=== PATIENT | female | born 1965 | race Caucasian/White ===

== ENCOUNTER → 2016-09-13 | Outpatient (CLI) | payer MEDICARE, BC ==
--- NOTE | 2016-09-15 08:32 | MM ---
Reason for exam: screening (asymptomatic). Last mammogram was performed 1 year and 2 months ago. History: Patient is postmenopausal and has history of other cancer at age 48. Excisional biopsy of the right breast, February 12, 2007. Benign excisional biopsy of the right breast, August 24, 1999. Physical Findings: A clinical breast exam by your physician is recommended on an annual basis and results should be correlated with mammographic findings. MG 3D Screening Mammo W/Cad Bilateral CC and MLO view(s) were taken. Prior study comparison: July 21, 2015, bilateral MG 3d screening mammo w/cad. April 23, 2014, bilateral MG screening mammo w CAD. January 30, 2012, bilateral digital screening mammo w/CAD. There are scattered fibroglandular densities. No significant changes when compared with prior studies. ASSESSMENT: Negative, BI-RAD 1 RECOMMENDATION: Routine screening mammogram of both breasts in 1 year.
== END | disposition home or self-care (01) ==
LOC: RADMAMWWP 14:51
PROVIDERS: ATTEND Obstetrics & Gynecology
DX: Z12.31 Encounter for screening mammogram for malignant neoplasm of breast (principal)
CPT/HCPCS: 77063; G0202

== ENCOUNTER → 2016-12-28 | Outpatient (CLI) | payer MEDICARE, BC ==
--- NOTE | 2016-12-28 16:48 | CT ---
EXAMINATION TYPE: CT ChestAbdPelvis w con DATE OF EXAM: 12/28/2016 4:00 PM COMPARISON: Prior CT abdomen pelvis 13 Jan 2016, CT abdomen pelvis 08 Jan 2015 HISTORY: Pt states of follow up for GI stromal tumor CT DLP: 3802.1 mGycm Automated exposure control for dose reduction was used. CONTRAST: CT scan of the chest, abdomen and pelvis is performed with Oral Contrast and with IV Contrast, patien t injected with 80 mL of Visipaque 320. FINDINGS: LUNGS: Dependent atelectatic changes are suspected on the right. There are probable areas of scarring with linear bands of increased attenuation bilaterally. The heart is enlarged. MEDIASTINUM: There are no greater than 1 cm hilar or mediastinal lymph nodes. No pericardial effusi on is seen. AORTA: No significant abnormality is seen. OTHER: No additional significant abnormality is seen. LIVER/GB: Liver shows a stable appearance, gallbladder is contracted. Difficult to exclude some small stones within the gallbladder. PANCREAS: Immediately inferior to the pancreas there is a soft tissue mass measuring approximately 6. 1 x 6 x 4.2 cm which is increased in size as compared to previous exams. Pancreas is stable. SPLEEN: Enlarged at 14.7 cm ADRENALS: No significant abnormality is seen. KIDNEYS: Small cortical cysts show a similar appearance REPRODUCTIVE ORGANS: No gross abnormality seen. BOWEL: Diverticular changes associated with the colon. FREE AIR: No Free Air visible. ASCITES: None seen. RETROPERITONEAL ADENOPATHY: No retroperitoneal adenopathy is seen. LYMPH NODES: No greater than 1 cm abdominal or pelvic lymph nodes are appreciated. URINARY BLADDER: No significant abnormality is seen. PELVIC ADENOPATHY: None visualized. OSSEOUS STRUCTURES: No significant abnormality is seen. IMPRESSION: Interval growth in patient's soft tissue mass compared to previous examinations.
== END | disposition home or self-care (01) ==
LOC: RADPROMAIN 14:25
PROVIDERS: ATTEND Internal Medicine Hematology & Oncology
DX: C49.A0 Gastrointestinal stromal tumor, unspecified site (principal); K86.89 Other specified diseases of pancreas; Z88.1 Allergy status to other antibiotic agents
CPT/HCPCS: 82565; 84520; 71260; 74177; Q9967

== ENCOUNTER → 2017-05-04 | Outpatient (CLI) | payer MEDICARE, BC | END | disposition home or self-care (01) | LOC: RADPROMAIN 10:21 | PROVIDERS: ATTEND Internal Medicine Hematology & Oncology | DX: C49.A0 Gastrointestinal stromal tumor, unspecified site (principal) | CPT/HCPCS: 82565; 84520; J1642 ==

== ENCOUNTER → 2017-05-16 | Outpatient (CLI) | payer MEDICARE, BC ==
--- NOTE | 2017-05-16 12:45 | CT ---
EXAMINATION TYPE: CT abdomen pelvis w con DATE OF EXAM: 05/16/2017 COMPARISON: December 28, 2016 HISTORY: Gastrointestinal Stromal Tumor CT DLP: 3506.3 mGycm CONTRAST: CT scan of the abdomen and pelvis is performed with Oral Contrast and with IV Contrast, patient injec fr[place] with 80 mL of Visipaque 320. FINDINGS: LUNG BASES-: No visible nodule. No infiltrate. LIVER/GB: There is evidence of cholelithiasis. No space occupying hepatic lesion. Biliary tree is of normal caliber. PANCREAS: No inflammation. No distinct mass. SPLEEN: No splenic enlargement. No lesion seen. ADRENALS: No nodule. No thickening. KIDNEYS/BLADDER: No hydronephrosis. No nephrolithiasis. No disctinct renal mass. Urinary bladder g rossly unremarkable. BOWEL: Soft tissue mass is again noted within the small bowel mesentery which currently measures 5.5 x 4.7 x 5.6 cm versus 5.7 x 5.6 x 5.0 cm previously. Overall no significant change is appreciated. Ad jacent to this dominant soft tissue mass just inferior to the pancreatic head and uncinate process is an additional mass measuring 3.1 x 3.0 cm versus 1.9 x 1.6 cm previously. Normal appendix. Normal b owel caliber. No inflammation. Sigmoid diverticulosis without diverticulitis. GENITAL ORGANS: No gross abnormality. LYMPH NODES: No greater than 1cm abdominal or pelvic lymph nodes are appreciated. AORTA: No significant abnormality. OSSEOUS STRUCTURES: No significant abnormality is seen. OTHER: No significant additional abnormality is seen. IMPRESSION: 1. Dominant mass within the small bowel mesentery is essentially unchanged in size however an adjacen t soft tissue mass demonstrates interval increase in size. 2. Cholelithiasis.
== END | disposition home or self-care (01) ==
LOC: RADPROMAIN 10:15
PROVIDERS: ATTEND Internal Medicine Hematology & Oncology
DX: C49.A0 Gastrointestinal stromal tumor, unspecified site (principal); K80.20 Calculus of gallbladder without cholecystitis without obstruction
CPT/HCPCS: 82565; 84520; 74177; Q9967; J1642

== ENCOUNTER → 2017-07-25 | Outpatient (CLI) | payer MEDICARE, BC ==
--- NOTE | 2017-07-25 14:00 | CONS ---
CONSULTATION DATE OF SERVICE: 07/25/2017 52-year-old lady has been with the sleep center for possible obstructive sleep apnea- hypopnea syndrome. HISTORY OF PRESENT ILLNESS SLEEP WAKE EVALUATION: SLEEP SCHEDULE: The patient usual sleep schedule in the range from 1:00 a.m. until 7:30 a.m. FALLING ASLEEP: Sometimes has problem with falling asleep. She has TV set in bedroom. DURING SLEEP: She prefers to sleep on the side position during the night. She wakes up from sleep up to 3 times with dry mouth, heartburn, snoring. DURING THE DAY/SLEEP WAKE EVALUATION: In the morning she wakes up tired, episodes of depression and anxiety. Bogard Sleepiness Scale is 7. PAST MEDICAL HISTORY: Past medical history positive for gastrointestinal stomal tumor diagnosed in 2012, on treatment with chemotherapy, anxiety, depression, headaches, multiple episodes of sinusitis, ear infection, back problems, liver abscess. PAST SURGICAL HISTORY: Several C-sections, left eye cataract surgery, several sinus surgeries, two lumpectomies from right breast, benign, port placement on the right side of the chest. MEDICATIONS: Gleevec, Pepcid, Xanax, Lomotil, Xyzal, Zofran, Lexapro, Ultram, Lasix, Aleve. Nasal Carlton, Ceftin. SOCIAL HISTORY: Negative for smoking. Alcohol consumption very rarely. REVIEW OF SYSTEMS: Awakenings from sleep, sometimes tiredness during the day. FAMILY HISTORY: Hypertension, heart problems, sinus problems with nasal polyps, acid reflux, hypertension, diabetes, heart problems. PHYSICAL EXAM: lady without distress BP 127/68, HR 90, RR 16, height 5 feet 2 inches, weight 317.8, BMI 57.9. Neck 15 and one third in circumference. Temp 98.1. Oxygen saturation room air 97%. Oropharynx low position of soft palate. Slight restriction of nasal breathing. Systolic murmur on aorta and pulmonary artery. Abdomen is obese. Palpable port on the right side of the chest. Neck Supple, no JVD. Thyroid is not palpable. LUNGS Clear to percussion and to auscultation. Good air exchange. No wheezing or rhonchi. HEART S1, S2 regular. No murmurs, gallops, or rubs. ABDOMEN: Obese. Soft and nontender. Bowel sounds are present. No organomegaly appreciated. EXTREMITIES No clubbing or cyanosis. GASTROENTEROLOGY NURSE Awake, alert, and oriented X3. Cranial nerves 2 to 7 intact. There is no fasciculation or atrophy. noted. No focal deficits observed. IMPRESSION: 1. Snoring, multiple awakenings from sleep, low position of soft palate, obesity, obstructive sleep apnea-hypopnea syndrome. 2. Obesity BMI 57.9. 3. Anxiety. 4. Depression. 5. 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 6. Status post C5 dislocation. 7. Headaches. 8. History of multiple sinusitis. 9. Status post 4 sinus surgeries. 10.Status post 2 lumpectomy from right breast benign. 11.Status post port insertion to the right side of the chest. 12.History of ear infection. 13.Status post left eye cataract surgery. 14.History of liver abscess. 15. PLAN: 1. Polysomnography for evaluation of patient's breathing during sleep. 2. CPAP/BiPAP titration if sleep study confirms obstructive sleep apnea-hypopnea syndrome. 3. Preferable position during sleep on the side. 4. No driving if patient feels any sleepiness. Patient is aware of civil and criminal liability for unsafe driving. 5. I will see patient for follow up visit to explain results of testing and following plan. Thank you very much for this patient for consultation. Sincerely. Ambrocio Bruno MD, PhD, FAASM Diplomat of [place] [employer] [place] [employer] [facility] MMODL / JONELN: [id number] /
== END | disposition home or self-care (01) ==
LOC: SLEEP 11:51
PROVIDERS: ATTEND Internal Medicine
DX: G47.33 Obstructive sleep apnea (adult) (pediatric) (principal); C49.A0 Gastrointestinal stromal tumor, unspecified site; E66.9 Obesity, unspecified; F41.9 Anxiety disorder, unspecified; F32.9 Major depressive disorder, single episode, unspecified; R51 Headache; Z68.43 Body mass index [BMI] 50.0-59.9, adult; Z98.890 Other specified postprocedural states
CPT/HCPCS: 99211

== ENCOUNTER → 2017-09-21 | Outpatient (CLI) | payer MEDICARE, BC ==
--- NOTE | 2017-09-21 12:25 | XR ---
EXAMINATION TYPE: XR abdomen 2V DATE OF EXAM: 09/21/2017 CLINICAL HISTORY: History of partial small bowel resection 2 weeks ago for GIST with persistent pain nausea and vomiting. TECHNIQUE: Supine and upright views of the abdomen are obtained. COMPARISON: CT abdomen and pelvis May 16, 2017. FINDINGS: Exam suboptimal secondary to patient's large body habitus. New sutures left midabdomen are seen. There is some paucity of bowel gas. Visualized gas is noted in nondistended small and large bow el loops throughout the periphery of the abdomen and pelvis. Gas is seen in nondistended rectum. Ther e is air-fluid level seen in stomach. Lung bases are clear. Osseous structures are intact. IMPRESSION: Overall nonspecific but favor nonobstructive bowel gas pattern.
== END | disposition home or self-care (01) ==
LOC: RADXRMAIN 11:30
PROVIDERS: ATTEND Internal Medicine Hematology & Oncology
DX: I81 Portal vein thrombosis (principal); I10 Essential (primary) hypertension; D48.1 Neoplasm of uncertain behavior of connective and other soft tissue; I49.5 Sick sinus syndrome
CPT/HCPCS: 74019

== ENCOUNTER → 2017-12-04 | Outpatient (CLI) | payer MEDICARE, BC ==
[2017-12-04 10:49] LABS: Appearance,Urine Clear (Clear); Bacteria,Urine Rare /hpf; Bilirubin,Urine Negative (Negative); Blood,Urine Negative (Negative); Color,Urine Yellow; Glucose,Urine (UA) Negative (Negative); Hyaline Casts,Urine 1 /lpf (0-2); Ketones,Urine Negative (Negative); Leukocyte Esterase,Urine Small (Negative); Mucus,Urine Occasional /hpf; Nitrite,Urine Negative (Negative); PH, Urine 5.5 (5.0-8.0); Protein,Urine Trace (Negative); RBC,Urine 1 /hpf (0-5); Specific Gravity,Urine 1.013 (1.001-1.035); Squamous Epithelial Cell,Urine 2 /hpf (0-4); Urobilinogen,Urine <2.0 mg/dL (<2.0); WBC,Urine 3 /hpf (0-5)
--- NOTE | 2017-12-04 11:06 | XR ---
EXAMINATION TYPE: XR lumbosacral spine min 4V DATE OF EXAM: 12/04/2017 COMPARISON: NONE HISTORY: 52-year-old female low back pain TECHNIQUE: 5 views FINDINGS: Some rightward truncal shift could be positional or secondary to muscle spasm. There are 5 Lumbar typ e vertebral bodies. No pars interarticularis defect. Facet arthropathy lower lumbar spine. Very mild endplate spondylosis throughout. Somewhat short appearance to the pedicles in the mid to lower lumbar spine. Vertebral body heights are maintained. IMPRESSION: 1. Somewhat short appearance to the pedicles in the lower lumbar spine could reflect underlying conge nital spinal canal stenosis. 2. Mild facet arthropathy mid to lower lumbar spine. Very mild scattered endplate spondylosis through out. 3. No vertebral compression collapse or malalignment.
== END | disposition home or self-care (01) ==
LOC: LABWHC1 10:15
PROVIDERS: ATTEND Internal Medicine
DX: M46.96 Unspecified inflammatory spondylopathy, lumbar region (principal); N39.0 Urinary tract infection, site not specified
CPT/HCPCS: 72110; 81001; 87086

== ENCOUNTER → 2017-12-07 | Outpatient (CLI) | payer MEDICARE, BC ==
--- NOTE | 2017-12-10 12:09 | MM ---
Reason for exam: screening (asymptomatic). Last mammogram was performed 1 year and 3 months ago. History: Patient is postmenopausal and has history of other cancer at age 48. Excisional biopsy of the right breast, February 12, 2007. Benign excisional biopsy of the right breast, August 24, 1999. Physical Findings: A clinical breast exam by your physician is recommended on an annual basis and results should be correlated with mammographic findings. MG 3D Screening Mammo W/Cad Bilateral CC and MLO view(s) were taken. Prior study comparison: September 13, 2016, bilateral MG 3d screening mammo w/cad. July 21, 2015, bilateral MG 3d screening mammo w/cad. There are scattered fibroglandular densities. There is no discrete abnormality. ASSESSMENT: Negative, BI-RAD 1 RECOMMENDATION: Routine screening mammogram of both breasts in 1 year.
== END | disposition home or self-care (01) ==
LOC: RADMAMWWP 09:21
PROVIDERS: ATTEND Internal Medicine
DX: Z12.31 Encounter for screening mammogram for malignant neoplasm of breast (principal)
CPT/HCPCS: 77063; 77067

== ENCOUNTER → 2018-02-04 | Outpatient (CLI) | payer MEDICARE, BC ==
--- NOTE | 2018-02-04 13:20 | CT ---
EXAMINATION TYPE: CT ChestAbdPelvis w con DATE OF EXAM: 02/04/2018 COMPARISON: Prior CT abdomen and pelvis May 16, 2017 and older studies HISTORY: Patient has no complaints at time of study. Follow up study for gastrointestinal stromal tu mor that was removed during bowel resection [address] DLP: 1909 mGycm. Automated Exposure Control for Dose Reduction was Utilized. CONTRAST: CT scan of the thorax, abdomen and pelvis is performed with IV Contrast, patient injected with 100 mL of Isovue 300. FINDINGS: LUNGS: Low lung volumes with elevated right hemidiaphragm is redemonstrated. There is some right grea ter than left bibasilar linear scarring and/or atelectasis. No new suspicious nodule or mass is prese nt. No pleural effusion or pneumothorax is seen bilaterally. MEDIASTINUM: There are no greater than 1 cm hilar or mediastinal lymph nodes. No pericardial effusi on is seen. Cardiomegaly is redemonstrated. OTHER: There is stable right internal jugular Mediport catheter. LIVER/GB: Dependent density in gallbladder could reflect small stones. PANCREAS: No significant abnormality is seen. SPLEEN: No significant abnormality is seen. ADRENALS: No significant abnormality is seen. KIDNEYS: No significant abnormality is seen. BOWEL: No suspicious small or large bowel dilatation. Surgical sutures throughout the mesentery are now identified. There may be new side to side anastomos is of small bowel loop coronal image 56. There is persistent mild fat stranding with some subcentimet er nodularity. Large heterogeneous left sided mesenteric mass or lymph node on most recent CT is not clearly seen on current study. Mass just inferior to pancreatic head on prior study is less well-seen on current study. Some diverticula in the left and sigmoid colon are present. GENITAL ORGANS: No gross abnormality seen. LYMPH NODES: No greater than 1cm abdominal or pelvic lymph nodes are appreciated. OSSEOUS STRUCTURES: No significant abnormality is seen. OTHER: Anterior vertical scarring is redemonstrated. IMPRESSION: Interval surgery with resection of large central abdominal mesenteric masses. Some persi stent mild fat stranding and subcentimeter mesenteric nodularity is seen, nonspecific and can be foll owed. No new masses or adenopathy is otherwise evident.
== END ==
LOC: RADPROMAIN 10:11
PROVIDERS: ATTEND Internal Medicine Hematology & Oncology
DX: Z03.89 Encounter for observation for other suspected diseases and conditions ruled out (principal); D48.1 Neoplasm of uncertain behavior of connective and other soft tissue
CPT/HCPCS: 82565; 84520; 71260; 74177; J1642; Q9967

== ENCOUNTER → 2018-03-11 | Outpatient (CLI) | payer MEDICARE, BC ==
--- NOTE | 2018-03-11 09:01 | CT ---
EXAMINATION TYPE: CT sinus wo con DATE OF EXAM: 03/11/2018 COMPARISON: 12/20/2010 HISTORY: Chronic sinus issues CT DLP: 577.3 mGycm. Automated Exposure Control for Dose Reduction was Utilized. TECHNIQUE: CT scan of the sinuses is performed without contrast, axial images are obtained, coronal r eformatted images are also reviewed. FINDINGS: There are surgical postsurgical changes of the ostiomeatal complexes/maxillary sinuses. The re is persistent mild near circumferential mucosal thickening of the left maxillary sinus and moderat e mucosal thickening of the ethmoid sinuses. The frontal sinuses and sphenoid sinuses are well aerate d. The visualized portions of the mastoid air cells are also well aerated. Middle ear cavities and ex ternal auditory canals appear patent. The nasal septum remains midline. The maxillary spine and nasal bone are intact. The globes and extraocular muscles are symmetric. There is atrophy or surgical jeromy júnior of the left lens. There is narrowing without occlusion of the bilateral ostiomeatal complexes from mucosal thickening. There is elongation of the right middle nasal turbinate, normal variant. No significant mucosal hyper trophy is seen around the nasal turbinates. Frontal recesses are patent. No Jose M cells or azeb bu llosa. IMPRESSION: 1. Narrowing without occlusion of the bilateral ostiomeatal complexes secondary to mucosal thickening . No Jose M cells or azeb bullosa. Mild circumferential left maxillary mucosal thickening and moder ate ethmoid mucosal thickening is present. 2. No nasal septal deviation. Osseous structures are intact.
== END | disposition home or self-care (01) ==
LOC: RADCTMAIN 08:29
PROVIDERS: ATTEND Otolaryngology
DX: J32.0 Chronic maxillary sinusitis (principal); J32.2 Chronic ethmoidal sinusitis
CPT/HCPCS: 70486

== ENCOUNTER 2018-12-07 18:59 | Emergency (ER) | payer MEDICARE, BC ==
[2018-12-07 19:10] VITALS: TEMP 98.2
[2018-12-07] MEDS ORDERED: SODIUM CHLORIDE 0.9% 1,000 ML IV STA (19:13)
[2018-12-07] MEDS ORDERED: ONDANSETRON 4 MG/2 ML VIAL IVP STA (19:13)
[2018-12-07] MEDS ORDERED: MORPHINE SULFATE 4 MG/ML SYRINGE IV STA (19:13)
--- NOTE | 2018-12-07 19:14 | ED ---
Abdominal Pain HPI - General Chief Complaint: Abdominal Pain Stated Complaint: gallstones Time Seen by Provider: 12/07/18 19:13 Source: patient Mode of arrival: ambulatory Limitations: no limitations - History of Present Illness Initial Comments: Zulema is a morbidly obese 53-year-old female with past medical history of gastrointestinal cancer status post resection with development of liver abscess and portal vein thrombosis which was treated with long-term IV antibiotics. Patient has a known history of gallstones. She presents to the emergency depa rtment this evening for evaluation of right upper quadrant abdominal pain, nausea, vomiting and diarrhea. Patient reports that this morning she had T and a protein bar for breakfast she subsequently developed abdominal pain nausea and vomiting. Patient reports that she's had multiple episodes of nonbloody nonbilious emesis this afternoon the pain has persisted despite having nothing to eat or drink. Patient reports she's becoming lightheaded and beginning to have concerns that she may be dehydrated so she came to the ER for further evaluation. - Related Data Allergies Allergy/AdvReac Type Severity Reaction Status Date / Time ampicillin Allergy Unknown Verified 12/07/18 19:10 cephalexin monohydrate Allergy Unknown Verified 12/07/18 19:10 [From Keflex] egg Allergy Nausea & Verified 12/07/18 19:10 Vomiting erythromycin base Allergy Unknown Verified 12/07/18 19:10 [Erythromycin Base] Penicillins Allergy Unknown Verified 12/07/18 19:10 tetracycline [Tetracycline] Allergy Unknown Verified 12/07/18 19:10 Review of Systems ROS Statement: Those systems with pertinent positive or pertinent negative responses have been documented in the HPI. ROS Other: All systems not noted in ROS Statement are negative. 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 History of Any Multi-Drug Resistant Organisms: None Reported Additional Past Surgical History / Comment(s): bowel resection, csection, sinus surgery, cataract surgery, d&C, breast biopsy, port placement Past Psychological History: Anxiety, Depression Smoking Status: Never smoker Past Alcohol Use History: None Reported Past Drug Use History: None Reported General Exam - General Exam Comments Initial Comments: Physical Exam GENERAL: Patient is well-developed and well-nourished. Patient is nontoxic and well-hydrated and is in no distress. HENT: Normocephalic, Atraumatic. EYES: PERRL, EOMI PULMONARY: Unlabored respirations. CARDIOVASCULAR: There is a regular rate and rhythm without any murmurs gallops or rubs. ABDOMEN: Soft and nontender with normal bowel sounds. Well healed midline surgical incision SKIN: Skin is clear with no lesions or rashes and otherwise unremarkable. : Deferred NEUROLOGIC: Patient is alert and oriented x3. Moving all extremities spontaneously MUSCULOSKELETAL: Normal extremities with adequate strength and full range of motion. No lower extremity swelling or edema. No calf tenderness. PSYCHIATRIC: Normal psychiatric evaluation. Limitations: no limitations Course Vital Signs 12/07/18 12/07/18 12/07/18 19:04 20:23 21:07 Temperature 98.2 F Pulse Rate 101 H 102 H 96 Respiratory 18 20 20 Rate Blood Pressure 103/75 132/95 135/93 O2 Sat by Pulse 97 97 95 Oximetry 12/07/18 12/07/18 21:30 22:30 Temperature Pulse Rate 81 83 Respiratory 18 18 Rate Blood Pressure 146/94 133/93 O2 Sat by Pulse 95 95 Oximetry Medical Decision Making - Medical Decision Making The patient was seen history was obtained from the patient and review of medical record 53-year-old female with known gallstone disease who presents with right upper quadrant abdominal pain nausea and vomiting Labs, ultrasound, Zofran were ordered patient declined morphine stating that even if it's infused her report that it gandara and she doesn't like the way makes her feel Labs with no significant abnormalities there is no leukocytosis no transaminitis Ultrasound did reveal multiple gallstones, some tenderness with the exam Patient was reevaluated and advised of the findings. At this time patient is comfortable with the plan for outpatient management. Dietary modifications were discussed. Patient has established relationship with Dr. Stapleton and will follow-up in his office for discussion of possible cholecystectomy. I did discuss this with Dr. Cross who will see the patient outpatient. - Lab Data Result diagrams: 12/07/18 20:00 12/07/18 20:00 Lab Results 12/07/18 12/07/18 12/07/18 Range/Units 19:20 20:00 20:00 WBC 10.4 (3.8-10.6) k/uL RBC 4.03 (3.80-5.40) m/uL Hgb 12.7 (11.4-16.0) gm/dL Hct 39.5 (34.0-46.0) % MCV 98.1 (80.0-100.0) fL MCH 31.6 (25.0-35.0) pg MCHC 32.2 (31.0-37.0) g/dL RDW 14.1 (11.5-15.5) % Plt Count 258 (150-450) k/uL Neutrophils % 86 % Lymphocytes % 7 % Monocytes % 3 % Eosinophils % 3 % Basophils % 0 % Neutrophils # 8.9 H (1.3-7.7) k/uL Lymphocytes # 0.7 L (1.0-4.8) k/uL Monocytes # 0.3 (0-1.0) k/uL Eosinophils # 0.3 (0-0.7) k/uL Basophils # 0.0 (0-0.2) k/uL Sodium 140 (137-145) mmol/L Potassium 4.2 (3.5-5.1) mmol/L Chloride 106 (98-107) mmol/L Carbon Dioxide 25 (22-30) mmol/L Anion Gap 9 mmol/L BUN 14 (7-17) mg/dL Creatinine 1.11 H (0.52-1.04) mg/dL Est GFR (CKD-EPI)AfAm 65 (>60 ml/min/1.73 sqM) Est GFR (CKD-EPI)NonAf 57 (>60 ml/min/1.73 sqM) Glucose 124 H (74-99) mg/dL Calcium 9.8 (8.4-10.2) mg/dL Total Bilirubin 0.7 (0.2-1.3) mg/dL AST 22 (14-36) U/L ALT 32 (9-52) U/L Alkaline Phosphatase 101 (38-126) U/L Total Protein 7.2 (6.3-8.2) g/dL Albumin 4.3 (3.5-5.0) g/dL Amylase 37 (30-110) U/L Lipase 81 (23-300) U/L Urine Color Yellow Urine Appearance Clear (Clear) Urine pH 5.5 (5.0-8.0) Ur Specific [place] 1.008 (1.001-1.035) Urine Protein Negative (Negative) Urine Glucose (UA) Negative (Negative) Urine Ketones Negative (Negative) Urine Blood Negative (Negative) Urine Nitrite Negative (Negative) Urine Bilirubin Negative (Negative) Urine Urobilinogen <2.0 (<2.0) mg/dL Ur Leukocyte Esterase Negative (Negative) Disposition Clinical Impression: Symptomatic cholelithiasis Disposition: HOME SELF-CARE Condition: Stable Instructions (If sedation given, give patient instructions): Biliary Colic (ED), Gallstones (ED) Is patient prescribed a controlled substance at d/c from ED?: No Referrals: Jerome Munoz MD [Primary Care Provider] - 1-2 days Renzo Stapleton MD [Medical Doctor] - 1-2 days
[2018-12-07 20:25] LABS: Basophils % (A) 0 %; Eosinophils # (A) 0.3 k/uL (0-0.7); Eosinophils % (A) 3 %; HCT 39.5 % (34.0-46.0); HGB 12.7 gm/dL (11.4-16.0); Lymphocytes # (A) 0.7 k/uL (1.0-4.8); Lymphocytes % (A) 7 %; MCH 31.6 pg (25.0-35.0); MCHC 32.2 g/dL (31.0-37.0); MCV 98.1 fL (80.0-100.0); Mean Platelet Volume 7.3; Monocytes # (A) 0.3 k/uL (0-1.0); Monocytes % (A) 3 %; Neutrophils # (A) 8.9 k/uL (1.3-7.7); Neutrophils % (A) 86 %; Platelet Count 258 k/uL (150-450); RBC 4.03 m/uL (3.80-5.40); RDW 14.1 % (11.5-15.5); WBC 10.4 k/uL (3.8-10.6)
[2018-12-07 20:35] LABS: Albumin 4.3 g/dL (3.5-5.0); Calcium 9.8 mg/dL (8.4-10.2); Potassium 4.2 mmol/L (3.5-5.1); Total Bilirubin 0.7 mg/dL (0.2-1.3); Total Protein 7.2 g/dL (6.3-8.2)
--- NOTE | 2018-12-07 20:57 | US ---
EXAMINATION TYPE: US gallbladder DATE OF EXAM: 12/07/2018 COMPARISON: CT 02/04/2018 CLINICAL HISTORY: Pain known stones. Difficult exam due to patient body habitus EXAM MEASUREMENTS: Liver Length: 14.0 cm Gallbladder Wall: 0.26 cm CBD: 0.5 cm Right Kidney: 9.4 x 4.7 x 4.0 cm Pancreas: Obscured by bowel gas Liver: Limited visualization due to overlying bowel gas and patient body habitus, visualized portion s heterogeneous Gallbladder: Echogenic foci visualized, possible stones Evidence for sonographic London's sign: Yes CBD: wnl as visualized, limited visualization due to overlying bowel and patient body habitus Right Kidney: No hydronephrosis or masses seen IMPRESSION: Exam limited. There are probably multiple gallstones. No dilated ducts.
[2018-12-07 21:37] LABS: Appearance,Urine Clear (Clear); Bilirubin,Urine Negative (Negative); Blood,Urine Negative (Negative); Color,Urine Yellow; Glucose,Urine (UA) Negative (Negative); Ketones,Urine Negative (Negative); Leukocyte Esterase,Urine Negative (Negative); Nitrite,Urine Negative (Negative); PH, Urine 5.5 (5.0-8.0); Protein,Urine Negative (Negative); Specific Gravity,Urine 1.008 (1.001-1.035); Urobilinogen,Urine <2.0 mg/dL (<2.0)
[2018-12-07 21:47] VITALS: RESP 18
[2018-12-07] MEDS ORDERED: ACET/COD 300 MG/30 MG STARTER PACK 6 TAB BTL PO STA (22:13)
[2018-12-07 22:38] VITALS: BP 133/93; PULSE 83
== END 2018-12-07 22:40 | disposition home or self-care (01) ==
LOC: EC 18:59
DX: K80.20 Calculus of gallbladder without cholecystitis without obstruction (principal); R19.7 Diarrhea, unspecified; E66.01 Morbid (severe) obesity due to excess calories; Z98.890 Other specified postprocedural states; Z88.0 Allergy status to penicillin; Z88.1 Allergy status to other antibiotic agents; Z91.012 Allergy to eggs; Z85.00 Personal history of malignant neoplasm of unspecified digestive organ; Z90.49 Acquired absence of other specified parts of digestive tract; Z68.43 Body mass index [BMI] 50.0-59.9, adult; Z53.20 Procedure and treatment not carried out because of patient's decision for unspecified reasons
CPT/HCPCS: 36415; 80053; 82150; 83690; 85025; 81003; 76705; 99284; 96374; 96375; 96361; J2270; J2405

== ENCOUNTER 2019-02-05 16:45 | Inpatient (IN) | payer MEDICARE, BC ==
[2019-02-05] MEDS ORDERED: SODIUM CHLORIDE 0.9% 1,000 ML IV STA (17:47)
[2019-02-05] MEDS ORDERED: ONDANSETRON 4 MG/2 ML VIAL IVP STA (17:47)
--- NOTE | 2019-02-05 17:51 | ED ---
General Adult HPI - General Source: family, RN notes reviewed Mode of arrival: wheelchair Limitations: no limitations <Kaz Sutherland - Last Filed: 02/05/19 20:41> <Eddy Pantoja - Last Filed: 02/05/19 23:30> - General Chief complaint: Nausea/Vomiting/Diarrhea Stated complaint: s/p gallbladder sx Time Seen by Provider: 02/05/19 17:00 - History of Present Illness Initial comments: This is a 53-year-old female who has had previous surgery at the [facility] for a gastrointestinal tumor in the past. Patient had a gallbladder recently moved from them 8 days ago. Patient started vomiting yesterday and had a couple more episodes today as well as some diarrhea. Patient complains of right sided abdominal pain but she considers it a cramp and it usually prior to her having a vomiting episode. Patient states she's been unable to keep down any of her medicines and has not been taking her oral chemotherapy because she has been vomiting. Patient denies any fever chills. Patient states his sugar hematuria urinary frequency. (Kaz Sutherland) - Related Data Home Medications Medication Instructions Recorded Confirmed ALPRAZolam [Xanax] 0.5 mg PO HS 02/05/19 02/05/19 Acetaminophen [Tylenol] 650 mg PO Q6H PRN 02/05/19 02/05/19 Amitriptyline HCl 50 mg PO HS 02/05/19 02/05/19 Cholecalciferol (Vitamin D3) 2,000 unit PO DAILY 02/05/19 02/05/19 [Vitamin D3] Clotrimazole/Betameth Cream 1 applic TOPICAL BID PRN 02/05/19 02/05/19 [Lotrisone] Cyclobenzaprine [Flexeril] 5 mg PO TID PRN 02/05/19 02/05/19 Diphenox-Atrop 2.5-0.025 mg 1 tab PO DAILY PRN 02/05/19 02/05/19 [Lomotil] Docusate [Colace] 100 mg PO BID PRN 02/05/19 02/05/19 Famotidine [Pepcid] 20 mg PO BID 02/05/19 02/05/19 Fexofenadine HCl 180 mg PO DAILY 02/05/19 02/05/19 Fluticasone Propionate [Flonase 2 spray EA NOSTRIL DAILY PRN 02/05/19 02/05/19 Allergy Relief] Furosemide [Lasix] 40 mg PO DAILY PRN 02/05/19 02/05/19 Imatinib Mesylate [Gleevec] 400 mg PO HS 02/05/19 02/05/19 Nystatin 100,000 Unit/gm Powd 1 applic TOPICAL BID PRN 02/05/19 02/05/19 [Mycostatin Powder] Ondansetron Odt [Zofran Odt] 4 mg PO Q6H PRN 02/05/19 02/05/19 Sennosides/Docusate Sodium 1 tab PO BID 02/05/19 02/05/19 [Senna-S Laxative Tablet] Verapamil HCl [Verapamil ER] 360 mg PO DAILY 02/05/19 02/05/19 oxyCODONE HCL [Roxicodone] 5 mg PO Q4H PRN 02/05/19 02/05/19 Allergies Allergy/AdvReac Type Severity Reaction Status Date / Time ampicillin Allergy Unknown Verified 02/05/19 17:31 cephalexin monohydrate Allergy Unknown Verified 02/05/19 17:31 [From Keflex] egg Allergy Nausea & Verified 02/05/19 17:31 Vomiting erythromycin base Allergy Unknown Verified 02/05/19 17:31 [Erythromycin Base] Penicillins Allergy Unknown Verified 02/05/19 17:31 tetracycline [Tetracycline] Allergy Unknown Verified 02/05/19 17:31 Review of Systems ROS Other: All systems not noted in ROS Statement are negative. <Kaz Sutherland - Last Filed: 02/05/19 20:41> ROS Other: All systems not noted in ROS Statement are negative. <Eddy Pantoja - Last Filed: 02/05/19 23:30> ROS Statement: Those systems with pertinent positive or pertinent negative responses have been documented in the HPI. 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 History of Any Multi-Drug Resistant Organisms: None Reported Past Surgical History: Cholecystectomy Additional Past Surgical History / Comment(s): bowel resection, csection, sinus surgery, cataract surgery, d&C, breast biopsy, port placement Past Psychological History: Anxiety, Depression Smoking Status: Never smoker Past Alcohol Use History: None Reported Past Drug Use History: None Reported <Kaz Sutherland - Last Filed: 02/05/19 20:41> General Exam Limitations: no limitations <Kaz Sutherland - Last Filed: 02/05/19 20:41> - General Exam Comments Initial Comments: GENERAL: Patient is well-developed and well-nourished. Patient is nontoxic and well- hydrated and is in mild distress. ENT: Neck is soft and supple. No significant lymphadenopathy is noted. Oropharynx is clear. Moist mucous membranes. Neck has full range of motion without eliciting any pain. EYES: The sclera were anicteric and conjunctiva were pink and moist. Extraocular movements were intact and pupils were equal round and reactive to light. Ey elids were unremarkable. PULMONARY: Unlabored respirations. Good breath sounds bilaterally. No audible rales rhonchi or wheezing was noted. CARDIOVASCULAR: There is a regular rate and rhythm without any murmurs gallops or rubs. ABDOMEN: Patient has right sided abdominal tenderness. Patient is tender at the incision site which does not look infected and just below the incision site. SKIN: Skin is clear with no lesions or rashes and otherwise unremarkable. NEUROLOGIC: Patient is alert and oriented x3. Cranial nerves II through XII are grossly intact. Motor and sensory are also intact. Normal speech, volume and content. Symmetrical smile. MUSCULOSKELETAL: Normal extremities with adequate strength and full range of motion. No lower extremity swelling or edema. No calf tenderness. LYMPHATICS: No significant lymphadenopathy is noted PSYCHIATRIC: Normal psychiatric evaluation. (Kaz Sutherland) Course <Eddy Pantoja - Last Filed: 02/05/19 23:30> Vital Signs 02/05/19 02/05/19 02/05/19 16:57 18:19 20:05 Temperature 98.6 F 98.5 F Pulse Rate 108 H 100 95 Respiratory 18 18 18 Rate Blood Pressure 138/84 106/83 171/95 O2 Sat by Pulse 97 97 97 Oximetry 02/05/19 23:07 Temperature 98 F Pulse Rate 93 Respiratory 18 Rate Blood Pressure 139/80 O2 Sat by Pulse 94 L Oximetry - Reevaluation(s) Reevaluation #1: 02/05/19 21:43 Patient having complaint of a burning sore throat type pain following the nausea and vomiting, nursing request GI cocktail which I have ordered. (Eddy Pantoja) Medical Decision Making - Lab Data Result diagrams: 02/05/19 19:00 02/05/19 19:00 <Kaz Sutherland - Last Filed: 02/05/19 20:41> - Lab Data Result diagrams: 02/05/19 19:00 02/05/19 19:00 <Eddy Pantoja - Last Filed: 02/05/19 23:30> - Medical Decision Making Dr. Oglesby will be taking over the care of this patient at 9 PM (Kaz Sutherland) Receive this patient has a sign out. I have reviewed the patient's studies and discussed with the patient and her family. Patient does feel somewhat better, tolerating a little bit of by mouth fluid. Given the CT results concerning for possible mild leak, discussed the case with Dr. Fatima, who is covering for the patient's local surgeon Dr. Stapleton. The patient can be admitted and have hepatobiliary scintigraphy to aid in ruling out a bile leak. (Eddy Pantoja) - Lab Data Lab Results 02/05/19 02/05/19 02/05/19 Range/Units 19:00 19:00 19:00 WBC 13.2 H (3.8-10.6) k/uL RBC 3.31 L (3.80-5.40) m/uL Hgb 10.6 L (11.4-16.0) gm/dL Hct 32.4 L (34.0-46.0) % MCV 97.9 (80.0-100.0) fL MCH 32.1 (25.0-35.0) pg MCHC 32.8 (31.0-37.0) g/dL RDW 14.5 (11.5-15.5) % Plt Count 312 (150-450) k/uL Neutrophils % 73 % Lymphocytes % 11 % Monocytes % 5 % Eosinophils % 9 % Basophils % 0 % Neutrophils # 9.7 H (1.3-7.7) k/uL Lymphocytes # 1.5 (1.0-4.8) k/uL Monocytes # 0.6 (0-1.0) k/uL Eosinophils # 1.2 H (0-0.7) k/uL Basophils # 0.1 (0-0.2) k/uL Sodium 139 (137-145) mmol/L Potassium 4.0 (3.5-5.1) mmol/L Chloride 104 (98-107) mmol/L Carbon Dioxide 28 (22-30) mmol/L Anion Gap 7 mmol/L BUN 12 (7-17) mg/dL Creatinine 1.29 H (0.52-1.04) mg/dL Est GFR (CKD-EPI)AfAm 54 (>60 ml/min/1.73 sqM) Est GFR (CKD-EPI)NonAf 47 (>60 ml/min/1.73 sqM) Glucose 116 H (74-99) mg/dL Calcium 9.5 (8.4-10.2) mg/dL Total Bilirubin 0.6 (0.2-1.3) mg/dL AST 15 (14-36) U/L ALT 29 (9-52) U/L Alkaline Phosphatase 128 H (38-126) U/L Total Protein 7.0 (6.3-8.2) g/dL Albumin 3.9 (3.5-5.0) g/dL Amylase <30 L (30-110) U/L Lipase 34 (23-300) U/L Urine Color Yellow Urine Appearance Cloudy H (Clear) Urine pH 5.5 (5.0-8.0) Ur Specific [place] 1.017 (1.001-1.035) Urine Protein Trace H (Negative) Urine Glucose (UA) Negative (Negative) Urine Ketones Negative (Negative) Urine Blood Negative (Negative) Urine Nitrite Negative (Negative) Urine Bilirubin Negative (Negative) Urine Urobilinogen <2.0 (<2.0) mg/dL Ur Leukocyte Esterase Negative (Negative) Urine RBC <1 (0-5) /hpf Urine WBC 2 (0-5) /hpf Ur Squamous Epith Cells 2 (0-4) /hpf Amorphous Sediment Occasional H (None) /hpf Hyaline Casts 6 H (0-2) /lpf Urine Mucus Many H (None) /hpf Disposition <Kaz Sutherland - Last Filed: 02/05/19 20:41> Is patient prescribed a controlled substance at d/c from ED?: No <Eddy Pantoja - Last Filed: 02/05/19 23:30> Clinical Impression: Intractable vomiting with nausea, Abdominal pain Disposition: ADMITTED IP TO THIS HOSP Condition: Fair Referrals: Jerome Munoz MD [Primary Care Provider] - 1-2 days
[2019-02-05 19:17] LABS: Basophils # (A) 0.1 k/uL (0-0.2); Basophils % (A) 0 %; Eosinophils # (A) 1.2 k/uL (0-0.7); Eosinophils % (A) 9 %; HCT 32.4 % (34.0-46.0); HGB 10.6 gm/dL (11.4-16.0); Lymphocytes # (A) 1.5 k/uL (1.0-4.8); Lymphocytes % (A) 11 %; MCH 32.1 pg (25.0-35.0); MCHC 32.8 g/dL (31.0-37.0); MCV 97.9 fL (80.0-100.0); Mean Platelet Volume 7.2; Monocytes # (A) 0.6 k/uL (0-1.0); Monocytes % (A) 5 %; Neutrophils # (A) 9.7 k/uL (1.3-7.7); Neutrophils % (A) 73 %; Platelet Count 312 k/uL (150-450); RBC 3.31 m/uL (3.80-5.40); RDW 14.5 % (11.5-15.5); WBC 13.2 k/uL (3.8-10.6)
[2019-02-05 19:21] LABS: Amorphous Sediment,Urine Occasional /hpf; Appearance,Urine Cloudy (Clear); Bilirubin,Urine Negative (Negative); Blood,Urine Negative (Negative); Color,Urine Yellow; Glucose,Urine (UA) Negative (Negative); Hyaline Casts,Urine 6 /lpf (0-2); Ketones,Urine Negative (Negative); Leukocyte Esterase,Urine Negative (Negative); Mucus,Urine Many /hpf; Nitrite,Urine Negative (Negative); PH, Urine 5.5 (5.0-8.0); Protein,Urine Trace (Negative); RBC,Urine <1 /hpf (0-5); Specific Gravity,Urine 1.017 (1.001-1.035); Squamous Epithelial Cell,Urine 2 /hpf (0-4); Urobilinogen,Urine <2.0 mg/dL (<2.0); WBC,Urine 2 /hpf (0-5)
[2019-02-05 19:30] LABS: ALT 29 U/L (9-52); AST 15 U/L (14-36); African American GFR (CKD) 54 (>60 ml/min/1.73 sqM); Albumin 3.9 g/dL (3.5-5.0); Alkaline Phosphatase 128 U/L (38-126); Amylase <30 U/L (30-110); Anion Gap 7 mmol/L; Blood Urea Nitrogen 12 mg/dL (7-17); Calcium 9.5 mg/dL (8.4-10.2); Carbon Dioxide 28 mmol/L (22-30); Chloride 104 mmol/L (98-107); Glucose 116 mg/dL (74-99); Sodium 139 mmol/L (137-145); Total Bilirubin 0.6 mg/dL (0.2-1.3)
[2019-02-05 19:43] LABS: Lipase 34 U/L (23-300)
--- NOTE | 2019-02-05 20:36 | XR ---
EXAMINATION TYPE: XR KUB 5 views DATE OF EXAM: 02/05/2019 COMPARISON: 01/18/2013 HISTORY: Abdominal pain with nausea and vomiting and diarrhea TECHNIQUE: 5 supine views FINDINGS: The visualized lung bases and pleural spaces are negative as can be seen. The bowel gas pattern is normal. There are no acute skeletal findings, and no acute soft tissue findings. Note: Abnormal gas collections cannot be excluded supine radiography. IMPRESSION: No acute radiographic process.
[2019-02-05] MEDS ORDERED: MAG HYDROX/AL HYDROX/SIMETH 30 ML, HYOSCYAMINE ELIXIR 10 ML, CIMETIDINE HCL 300 MG, LID... PO STA ×4 (21:42)
--- NOTE | 2019-02-05 22:33 | CT ---
EXAM: CT Abdomen and Pelvis With Intravenous Contrast CLINICAL HISTORY: ITS.REASON CT Reason: Pain TECHNIQUE: Axial computed tomography images of the abdomen and pelvis with intravenous contrast. CTDI is 34.48 mGy and DLP is 1752.8 mGy-cm. This CT exam was performed using one or more of the following dose reduction techniques: automated exposure control, adjustment of the mA and/or kV according to patient size, and/or use of iterative reconstruction technique. Delayed imaging was performed. COMPARISON: CT chest abdomen and pelvis 02/04/2018. FINDINGS: Lung bases: Dependent atelectasis is seen in the lungs. ABDOMEN: Liver: Unremarkable. No mass. Gallbladder and bile ducts: Postsurgical change related to reported recent cholecystectomy with fluid collection in the gallbladder fossa measuring up to 7.5 x 3.9 x 5.5 cm. No ductal dilation. Pancreas: Unremarkable. No mass. No ductal dilation. Spleen: Unremarkable. No splenomegaly. Adrenals: Unremarkable. No mass. Kidneys and ureters: Subcentimeter hypodensity in the left kidney is too small to characterize. No hydronephrosis. Stomach and bowel: Colonic diverticulosis without evidence of acute diverticulitis. Fluid is seen throughout the colon. Suture along the duodenum again demonstrated. No obstruction. PELVIS: Appendix: No findings to suggest acute appendicitis. Bladder: Unremarkable. No mass. Reproductive: Unremarkable as visualized. ABDOMEN and PELVIS: Intraperitoneal space: Unremarkable. No free air. No significant fluid collection. Bones/joints: No acute fracture. No dislocation. Soft tissues: Suspected small fluid collection in the right rectus abdominis measuring 6 x 4.3 x 3.4 cm. Vasculature: Unremarkable. No abdominal aortic aneurysm. Lymph nodes: Unremarkable. No enlarged lymph nodes. IMPRESSION: 1. Postsurgical change related to reported recent cholecystectomy with fluid collection in the gallbladder fossa measuring up to 7.5 x 3.9 x 5.5 cm. This could potentially represent a small bile leak. Consider evaluation with nuclear medicine hepatobiliary scan as clinically warranted. 2. Suspected small fluid collection in the right rectus abdominis measuring 6 x 4.3 x 3.4 cm. This may represent postoperative hematoma, seroma, or abscess. 3. Colonic diverticulosis without evidence of acute diverticulitis. 4. Fluid is seen throughout the colon. This could be seen with colitis in the appropriate clinical scenario.
[2019-02-05] MEDS ORDERED: MORPHINE SULFATE 4 MG/ML SYRINGE IV STA (23:04)
[2019-02-05] MEDS ORDERED: NALOXONE 0.4 MG/ML 1 ML VIAL IV PRN (23:14)
[2019-02-05] MEDS ORDERED: ONDANSETRON 4 MG/2 ML VIAL IVP PRN (23:14)
[2019-02-06] MEDS: SODIUM CHLORIDE 0.9% 1,000 ML IV SCH ×4 (00:54→21:10)
[2019-02-06] MEDS: MORPHINE SULFATE 4 MG/ML SYRINGE IV PRN ×5 (03:33→21:24)
[2019-02-06] MEDS ORDERED: FLUTICASONE 50MCG/SPRAY NASAL 16GM EA NOSTRIL PRN (09:00)
[2019-02-06] MEDS ORDERED: FUROSEMIDE 40 MG TAB PO PRN (09:00)
[2019-02-06] MEDS ORDERED: DIPHENOX-ATROP 2.5-0.025 MG 1 EACH TAB PO PRN (09:00)
[2019-02-06] MEDS ORDERED: FAMOTIDINE 20 MG TAB PO SCH (09:00)
[2019-02-06] MEDS ORDERED: CYCLOBENZAPRINE 5 MG TAB PO PRN (09:00)
[2019-02-06] MEDS ORDERED: CLOTRIMAZOLE/BETAMETH 1-0.05% CREAM 45 GM TUBE TOPICAL PRN (09:00)
[2019-02-06] MEDS ORDERED: DOCUSATE 100 MG CAP PO PRN (09:00)
[2019-02-06] MEDS: SENNOSIDES-DOCUSATE SODIUM 1 EACH TAB PO SCH ×2 (09:54→21:09)
--- NOTE | 2019-02-06 09:56 | NM ---
Nuclear medicine hepatobiliary scan. HISTORY: Pain. DOSAGE: The patient received 4.7 mCi of Technetium 99m Choletec. FINDINGS: There is normal hepatic extraction. There is increased radiotracer along the medial margin of the liver. A small bile leak would be in the differential diagnosis. Biliary to bowel transit is s een by 30 minutes. Nonvisualization of the gallbladder compatible with previous cholecystectomy IMPRESSION: 1. There is increased radiotracer along the medial margin of the liver which can be seen with biliary leak correlate clinically.
[2019-02-06] MEDS: CHOLECALCIFEROL 1,000 UNIT TAB PO SCH (10:00)
[2019-02-06] MEDS: VERAPAMIL SR 180 MG TABLET.ER PO SCH (10:00)
[2019-02-06] MEDS: LORATADINE 10 MG TAB PO SCH (10:01)
[2019-02-06] MEDS: FAMOTIDINE 20 MG TAB PO SCH ×2 (10:01→21:10)
[2019-02-06 11:40] LABS: INR 1.1 (<1.2); Prothrombin Time 11.4 sec (9.0-12.0)
[2019-02-06] MEDS ORDERED: fentaNYL (PF) 50 MCG/ML 2 ML AMP ONE (14:46)
[2019-02-06] MEDS ORDERED: MIDAZOLAM 2 MG/2 ML VIAL ONE (14:46)
[2019-02-06] MEDS ORDERED: GLYCOPYRROLATE 0.2 MG/ML 2 ML VIAL ONE (14:46)
[2019-02-06] MEDS ORDERED: LEVOFLOXACIN 500MG-D5W PMX 500 MG in DEXTROSE/WATER 1 100ML.BAG IVPB STA (14:58)
--- NOTE | 2019-02-06 15:08 | P.GSHP ---
History of Present Illness H&P Date: 02/06/19 Chief Complaint: abdominal pain possible bile leak 53-year-old female known to our service. Patient underwent open cholecystectomy at [facility] on 01/28. Patient yesterday was having vomiting with some diarrhea and increasing pain right upper quadrant. Patient came to the hospital for evaluation. Was found to have a fluid collection in the gallbladder fossa. HIDA scan was performed today which shows possible bile leak. White blood cell count elevated at 13. Liver enzymes fairly normal. 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 History of Any Multi-Drug Resistant Organisms: None Reported Past Surgical History: Cholecystectomy Additional Past Surgical History / Comment(s): bowel resection, csection, sinus surgery, cataract surgery, d&C, breast biopsy, port placement Past Anesthesia/Blood Transfusion Reactions: No Reported Reaction Past Psychological History: Anxiety, Depression Smoking Status: Never smoker Past Alcohol Use History: None Reported Past Drug Use History: None Reported - Past Family History Father Family Medical History: Hypertension Additional Family Medical History / Comment(s): of aneursym Medications and Allergies Home Medications Medication Instructions Recorded Confirmed Type ALPRAZolam [Xanax] 0.5 mg PO HS 02/05/19 02/05/19 History Acetaminophen [Tylenol] 650 mg PO Q6H PRN 02/05/19 02/05/19 History Amitriptyline HCl 50 mg PO HS 02/05/19 02/05/19 History Cholecalciferol (Vitamin D3) 2,000 unit PO DAILY 02/05/19 02/05/19 History [Vitamin D3] Clotrimazole/Betameth Cream 1 applic TOPICAL BID PRN 02/05/19 02/05/19 History [Lotrisone] Cyclobenzaprine [Flexeril] 5 mg PO TID PRN 02/05/19 02/05/19 History Diphenox-Atrop 2.5-0.025 mg 1 tab PO DAILY PRN 02/05/19 02/05/19 History [Lomotil] Docusate [Colace] 100 mg PO BID PRN 02/05/19 02/05/19 History Famotidine [Pepcid] 20 mg PO BID 02/05/19 02/05/19 History Fexofenadine HCl 180 mg PO DAILY 02/05/19 02/05/19 History Fluticasone Propionate [Flonase 2 spray EA NOSTRIL DAILY PRN 02/05/19 02/05/19 History Allergy Relief] Furosemide [Lasix] 40 mg PO DAILY PRN 02/05/19 02/05/19 History Imatinib Mesylate [Gleevec] 400 mg PO HS 02/05/19 02/05/19 History Nystatin 100,000 Unit/gm Powd 1 applic TOPICAL BID PRN 02/05/19 02/05/19 History [Mycostatin Powder] Ondansetron Odt [Zofran Odt] 4 mg PO Q6H PRN 02/05/19 02/05/19 History Sennosides/Docusate Sodium 1 tab PO BID 02/05/19 02/05/19 History [Senna-S Laxative Tablet] Verapamil HCl [Verapamil ER] 360 mg PO DAILY 02/05/19 02/05/19 History oxyCODONE HCL [Roxicodone] 5 mg PO Q4H PRN 02/05/19 02/05/19 History Allergies Allergy/AdvReac Type Severity Reaction Status Date / Time ampicillin Allergy Unknown Verified 02/05/19 17:31 cephalexin monohydrate Allergy Unknown Verified 02/05/19 17:31 [From Keflex] egg Allergy Nausea & Verified 02/05/19 17:31 Vomiting erythromycin base Allergy Unknown Verified 02/05/19 17:31 [Erythromycin Base] Penicillins Allergy Unknown Verified 02/05/19 17:31 tetracycline [Tetracycline] Allergy Unknown Verified 02/05/19 17:31 Surgical - Exam Vital Signs Temp Pulse Resp BP Pulse Ox 98.6 F 108 H 18 138/84 97 02/05/19 16:57 02/05/19 16:57 02/05/19 16:57 02/05/19 16:57 02/05/19 16:57 Physical exam: General: Well-developed, well-nourished HEENT: Normocephalic, sclerae nonicteric Abdomen: right upper quadrant tenderness, subcostal incision healing nicely, nondistended Extremities: No edema Neuro: Alert and oriented Results - Labs 02/05/19 19:00 02/05/19 19:00 Abnormal Lab Results - Last 24 Hours (Table) 02/05/19 02/05/19 02/05/19 Range/Units 19:00 19:00 19:00 WBC 13.2 H (3.8-10.6) k/uL RBC 3.31 L (3.80-5.40) m/uL Hgb 10.6 L (11.4-16.0) gm/dL Hct 32.4 L (34.0-46.0) % Neutrophils # 9.7 H (1.3-7.7) k/uL Eosinophils # 1.2 H (0-0.7) k/uL Creatinine 1.29 H (0.52-1.04) mg/dL Glucose 116 H (74-99) mg/dL Alkaline Phosphatase 128 H (38-126) U/L Amylase <30 L (30-110) U/L Urine Appearance Cloudy H (Clear) Urine Protein Trace H (Negative) Amorphous Sediment Occasional H (None) /hpf Hyaline Casts 6 H (0-2) /lpf Urine Mucus Many H (None) /hpf Diabetes panel 02/05/19 Range/Units 19:00 Sodium 139 (137-145) mmol/L Potassium 4.0 (3.5-5.1) mmol/L Chloride 104 (98-107) mmol/L Carbon Dioxide 28 (22-30) mmol/L BUN 12 (7-17) mg/dL Creatinine 1.29 H (0.52-1.04) mg/dL Glucose 116 H (74-99) mg/dL Calcium 9.5 (8.4-10.2) mg/dL AST 15 (14-36) U/L ALT 29 (9-52) U/L Alkaline Phosphatase 128 H (38-126) U/L Total Protein 7.0 (6.3-8.2) g/dL Albumin 3.9 (3.5-5.0) g/dL Calcium panel 02/05/19 Range/Units 19:00 Calcium 9.5 (8.4-10.2) mg/dL Albumin 3.9 (3.5-5.0) g/dL Pituitary panel 02/05/19 Range/Units 19:00 Sodium 139 (137-145) mmol/L Potassium 4.0 (3.5-5.1) mmol/L Chloride 104 (98-107) mmol/L Carbon Dioxide 28 (22-30) mmol/L BUN 12 (7-17) mg/dL Creatinine 1.29 H (0.52-1.04) mg/dL Glucose 116 H (74-99) mg/dL Calcium 9.5 (8.4-10.2) mg/dL Adrenal panel 02/05/19 Range/Units 19:00 Sodium 139 (137-145) mmol/L Potassium 4.0 (3.5-5.1) mmol/L Chloride 104 (98-107) mmol/L Carbon Dioxide 28 (22-30) mmol/L BUN 12 (7-17) mg/dL Creatinine 1.29 H (0.52-1.04) mg/dL Glucose 116 H (74-99) mg/dL Calcium 9.5 (8.4-10.2) mg/dL Total Bilirubin 0.6 (0.2-1.3) mg/dL AST 15 (14-36) U/L ALT 29 (9-52) U/L Alkaline Phosphatase 128 H (38-126) U/L Total Protein 7.0 (6.3-8.2) g/dL Albumin 3.9 (3.5-5.0) g/dL Assessment and Plan (1) Abdominal pain Narrative/Plan: Case discussed with interventional radiology earlier today. Will proceed with CAT scan guided drain placement in the event that this does represent postoperative bile leak. Begin IV Levaquin. Hospitalist consult. Current Visit: Yes Status: Acute Code(s): R10.9 - UNSPECIFIED ABDOMINAL PAIN SNOMED Code(s): 48464823
--- NOTE | 2019-02-06 15:48 | CT ---
EXAMINATION TYPE: CT guided biloma drainage DATE OF EXAM: 02/06/2019 COMPARISON: HIDA scan 02/06/2018, CT 02/05/2019 HISTORY: Biloma gallbladder fossa, bilaterally CT DLP: 987 mGycm Automated exposure control for dose reduction was used. Maximal barrier technique was utilized. The skin over suitable path to the biloma in the gallbladder fossa was localized with CT and the overlying skin prepped and draped. Lidocaine was used for local anesthesia. A skin dawson made with a scalpel. Access was gained using CT guidance with a 21-gauge n eedle, dark bile material returned in the hub of the needle. A 0.018 inch wire was advanced and the access site was upsized, the wire was upsized and subsequently an 6-[place]ian drain was deployed within the abscess cavity and fixed in place. Catheter attached to gravity drainage. No immediate complica tion. Bile material sent for laboratory analysis and draining into the bag. The patient remained in stable condition. 10 minutes conscious sedation time, an independent observer perform the conscious sedation from [facility]. IMPRESSION: STATUS POST CT GUIDED BILOMA DRAINAGE, laboratory ANALYSIS IS PENDING. THIS PROCEDURE WAS PERFORMED BY THE UNDERSIGNED. IMPRESSION:
--- NOTE | 2019-02-06 16:31 | P.PCN ---
Date of Procedure: 02/06/19 Preoperative Diagnosis: biloma Postoperative Diagnosis: biloma Procedure(s) Performed: percutaneous biloma drain catheter placement Anesthesia: other (concious sedation) Estimated Blood Loss (ml): 10 Pathology: other (20cc bile to lab) Condition: stable Operative Findings: 6 fr catheter transhepatic to gravity
--- NOTE | 2019-02-06 17:24 | P.CONS ---
History of Present Illness - Reason for Consult Consult date: 02/06/19 Consult for medical management of hypertension Requesting physician: Renzo Stapleton - Chief Complaint Consult for medical management hypertension - History of Present Illness The patient is a morbidly obese 53-year-old female with a past medical history of GIST post chemotherapy and post open cholecystectomy 01/28/19 at [facility] in [place] that was admitted to the general surgery service after she presented to the ER with complaints of increasing abdominal discomfort intractable nausea and vomiting and diarrhea progressively worsening since Sunday. The patient denied any chest pain or shortness of breath, she denies any subjective fevers chills or night sweats. CT abdomen and pelvis was consistent with fluid collection of the gallbladder fossa thought to represent a small bile leak, small fluid collection in the rectus abdominis. Subsequent HIDA scan suggested biliary leak and interventional radiology was consulted to perform CT guided biloma drainage with fluid sent for analysis. Patient is noted to be afebrile but had a white count of 13.2. 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 History of Any Multi-Drug Resistant Organisms: None Reported Past Surgical History: Cholecystectomy Additional Past Surgical History / Comment(s): bowel resection, csection, sinus surgery, cataract surgery, d&C, breast biopsy, port placement Past Anesthesia/Blood Transfusion Reactions: No Reported Reaction Past Psychological History: Anxiety, Depression Smoking Status: Never smoker Past Alcohol Use History: None Reported Past Drug Use History: None Reported - Past Family History Father Family Medical History: Hypertension Additional Family Medical History / Comment(s): of aneursym Medications and Allergies Home Medications Medication Instructions Recorded Confirmed Type ALPRAZolam [Xanax] 0.5 mg PO HS 02/05/19 02/05/19 History Acetaminophen [Tylenol] 650 mg PO Q6H PRN 02/05/19 02/05/19 History Amitriptyline HCl 50 mg PO HS 02/05/19 02/05/19 History Cholecalciferol (Vitamin D3) 2,000 unit PO DAILY 02/05/19 02/05/19 History [Vitamin D3] Clotrimazole/Betameth Cream 1 applic TOPICAL BID PRN 02/05/19 02/05/19 History [Lotrisone] Cyclobenzaprine [Flexeril] 5 mg PO TID PRN 02/05/19 02/05/19 History Diphenox-Atrop 2.5-0.025 mg 1 tab PO DAILY PRN 02/05/19 02/05/19 History [Lomotil] Docusate [Colace] 100 mg PO BID PRN 02/05/19 02/05/19 History Famotidine [Pepcid] 20 mg PO BID 02/05/19 02/05/19 History Fexofenadine HCl 180 mg PO DAILY 02/05/19 02/05/19 History Fluticasone Propionate [Flonase 2 spray EA NOSTRIL DAILY PRN 02/05/19 02/05/19 History Allergy Relief] Furosemide [Lasix] 40 mg PO DAILY PRN 02/05/19 02/05/19 History Imatinib Mesylate [Gleevec] 400 mg PO HS 02/05/19 02/05/19 History Nystatin 100,000 Unit/gm Powd 1 applic TOPICAL BID PRN 02/05/19 02/05/19 History [Mycostatin Powder] Ondansetron Odt [Zofran Odt] 4 mg PO Q6H PRN 02/05/19 02/05/19 History Sennosides/Docusate Sodium 1 tab PO BID 02/05/19 02/05/19 History [Senna-S Laxative Tablet] Verapamil HCl [Verapamil ER] 360 mg PO DAILY 02/05/19 02/05/19 History oxyCODONE HCL [Roxicodone] 5 mg PO Q4H PRN 02/05/19 02/05/19 History Allergies Allergy/AdvReac Type Severity Reaction Status Date / Time ampicillin Allergy Unknown Verified 02/05/19 17:31 cephalexin monohydrate Allergy Unknown Verified 02/05/19 17:31 [From Keflex] egg Allergy Nausea & Verified 02/05/19 17:31 Vomiting erythromycin base Allergy Unknown Verified 02/05/19 17:31 [Erythromycin Base] Penicillins Allergy Unknown Verified 02/05/19 17:31 tetracycline [Tetracycline] Allergy Unknown Verified 02/05/19 17:31 Physical Exam Vitals: Vital Signs Temp Pulse Pulse Resp BP BP Pulse Ox 02/06/19 13:07 98.7 F 85 16 119/76 97 02/06/19 05:46 97.9 F 88 22 109/70 92 L 02/06/19 00:30 99.5 F 97 22 120/81 95 02/05/19 23:07 98 F 93 18 139/80 94 L 02/05/19 20:05 95 18 171/95 97 02/05/19 18:19 98.5 F 100 18 106/83 97 Intake and Output 02/06/19 02/06/19 02/06/19 06:59 14:59 22:59 Other: Voiding Method Toilet Toilet Bedpan Bedpan # Voids 0 3 # Bowel Movements 1 Constitutional: No acute distress, conversant, pleasant Eyes: Anicteric sclerae, moist conjunctiva, no lid-lag, PERRLA ENMT: NC/AT,Oropharynx clear, no erythema, exudates Neck:Supple, FROM, no masses, or JVD, No carotid bruits; No thyromegaly Lungs: Clear to auscultation, Clear to percussion, Normal respiratory effort, no accessory muscle use Cardiovascular: Heart regular in rate and rhythm, No murmurs, gallops, or rubs no peripheral edema Abdominal: Soft tender to palpation around her incision which can be expected, no significant erythema noted non distended, no guarding, no rebound or rigidity, Normoactive bowel sounds , biloma drain catheter with bloody drainage Skin: Normal temperature, tone, texture, turgor, No induration No subcutaneous nodules, No rash, lesions, No ulcers Extremities:No digital cyanosis No clubbing, Pedal pulses intact and symmetrical Radial pulses intact and symmetrical Normal gait and station, No calf tenderness Psychiatric: Alert and oriented to person, place and time, Appropriate affect Intact judgement Neuro: Muscles Strength 5/5 in all 4 extremities, Sensation to light touch grossly present throughout, Cranial nerves II-XII grossly intact. No focal sensory deficits Results CBC & Chem 7: 02/05/19 19:00 02/05/19 19:00 Labs: Abnormal Lab Results - Last 24 Hours (Table) 02/05/19 02/05/19 02/05/19 Range/Units 19:00 19:00 19:00 WBC 13.2 H (3.8-10.6) k/uL RBC 3.31 L (3.80-5.40) m/uL Hgb 10.6 L (11.4-16.0) gm/dL Hct 32.4 L (34.0-46.0) % Neutrophils # 9.7 H (1.3-7.7) k/uL Eosinophils # 1.2 H (0-0.7) k/uL Creatinine 1.29 H (0.52-1.04) mg/dL Glucose 116 H (74-99) mg/dL Alkaline Phosphatase 128 H (38-126) U/L Amylase <30 L (30-110) U/L Urine Appearance Cloudy H (Clear) Urine Protein Trace H (Negative) Amorphous Sediment Occasional H (None) /hpf Hyaline Casts 6 H (0-2) /lpf Urine Mucus Many H (None) /hpf Assessment and Plan (1) Essential hypertension Current Visit: Yes Status: Acute Code(s): I10 - ESSENTIAL (PRIMARY) HYPERTENSION SNOMED Code(s): 61357147 (2) Abdominal pain Current Visit: Yes Status: Acute Code(s): R10.9 - UNSPECIFIED ABDOMINAL PAIN SNOMED Code(s): 63048261 (3) Leukocytosis Current Visit: Yes Status: Acute Code(s): D72.829 - ELEVATED WHITE BLOOD CELL COUNT, UNSPECIFIED SNOMED Code(s): 382370900 (4) Intractable vomiting with nausea Current Visit: Yes Status: Acute Code(s): R11.2 - NAUSEA WITH VOMITING, UNSPECIFIED SNOMED Code(s): 971361454 (5) Postoperative bile leak Current Visit: Yes Status: Acute Code(s): K91.89 - OTH POSTPROCEDURAL COMPLICATIONS AND DISORDERS OF DGSTV SYS; K83.8 - OTHER SPECIFIED DISEASES OF BILIARY TRACT SNOMED Code(s): 705406053 (6) Status post cholecystectomy Current Visit: Yes Status: Acute Code(s): Z90.49 - ACQUIRED ABSENCE OF OTHER SPECIFIED PARTS OF DIGESTIVE TRACT SNOMED Code(s): 284236486 Plan: The patient is admitted to general surgery service and was found to have a biliary leak and is currently status post CT-guided drainage of the bilioma. The patient is afebrile has a mild leukocytosis is continued on Levaquin in the interim. We will recheck labs tomorrow. All of her home medications have been ordered which I agree that she can continue if she is not nothing by mouth. She is continued on SCDs for DVT prophylaxis
[2019-02-06] MEDS: ALPRAZolam 0.5 MG TAB PO SCH (21:09)
[2019-02-06] MEDS: NON-FORMULARY DRUG (Imatinib Mesylate [Gleevec] 400 MG) PO SCH (21:10)
[2019-02-06] MEDS: AMITRIPTYLINE HCL 25 MG TAB PO SCH (21:10)
[2019-02-07] MEDS: SODIUM CHLORIDE 0.9% 1,000 ML IV SCH ×4 (03:28→20:56)
[2019-02-07] MEDS: MORPHINE SULFATE 4 MG/ML SYRINGE IV PRN (04:51)
[2019-02-07] MEDS: VERAPAMIL SR 180 MG TABLET.ER PO SCH (08:30)
[2019-02-07] MEDS: CHOLECALCIFEROL 1,000 UNIT TAB PO SCH (08:30)
[2019-02-07] MEDS: FAMOTIDINE 20 MG TAB PO SCH ×2 (08:30→20:05)
[2019-02-07] MEDS: LORATADINE 10 MG TAB PO SCH (08:30)
[2019-02-07] MEDS: ACETAMINOPHEN TAB 325 MG TAB PO PRN ×2 (08:32→18:00)
[2019-02-07] MEDS: SENNOSIDES-DOCUSATE SODIUM 1 EACH TAB PO SCH ×2 (08:34→20:05)
[2019-02-07 10:19] LABS: Basophils % (A) 0 %; Eosinophils # (A) 0.8 k/uL (0-0.7); Eosinophils % (A) 10 %; HCT 27.9 % (34.0-46.0); Hypochromasia Slight; Lymphocytes % (A) 12 %; MCH 31.1 pg (25.0-35.0); MCHC 31.2 g/dL (31.0-37.0); MCV 99.6 fL (80.0-100.0); Macrocytosis Slight; Mean Platelet Volume 7.8; Monocytes # (A) 0.4 k/uL (0-1.0); Monocytes % (A) 5 %; Neutrophils # (A) 5.5 k/uL (1.3-7.7); Neutrophils % (A) 70 %; Platelet Count 211 k/uL (150-450); RDW 15.1 % (11.5-15.5); WBC 7.8 k/uL (3.8-10.6)
[2019-02-07 10:21] LABS: Albumin 3.3 g/dL (3.5-5.0); Calcium 8.8 mg/dL (8.4-10.2); Potassium 3.6 mmol/L (3.5-5.1); Total Bilirubin 0.6 mg/dL (0.2-1.3)
[2019-02-07 10:33] LABS: HGB 8.7 gm/dL (11.4-16.0)
--- NOTE | 2019-02-07 11:44 | P.PN ---
Subjective Progress Note Date: 02/07/19 Principal diagnosis: The patient is a morbidly obese 53-year-old female with a past medical history of GIST post chemotherapy and post open cholecystectomy 01/28/[address] [facility] in [place] that was admitted to the general surgery service after she presented to the ER with complaints of increasing abdominal discomfort intractable nausea and vomiting and diarrhea progressively worsening since Sunday. The patient denied any chest pain or shortness of breath, she denies any subjective fevers chills or night sweats. CT abdomen and pelvis was consistent with fluid collection of the gallbladder fossa thought to represent a small bile leak, small fluid collection in the rectus abdominis. Subsequent HIDA scan suggested biliary leak and interventional radiology was consulted to perform CT guided biloma drainage with fluid sent for analysis. Patient is noted to be afebrile but had a white count of 13.2. Patient seen and examined at bedside reports that her abdominal pain is significantly improved as is her nausea and vomiting denies any subjective fevers chills or night sweats. Afebrile overnight leukocytosis has resolved. Objective - Vital Signs Vital signs: Vital Signs Temp 98 F 02/07/19 05:55 Pulse 79 02/07/19 05:55 Resp 20 02/07/19 05:55 BP 102/68 02/07/19 05:55 Pulse Ox 96 02/07/19 05:55 Intake & Output 02/06/19 02/07/19 02/07/19 18:59 06:59 18:59 Intake Total 1320 Balance 1320 Intake: Intake, IV Titration 1200 Amount Sodium Chloride 0.9% 1, 1200 000 ml @ 150 mls/hr IV . Q6H40M [facility] Rx#:[id number] Oral 120 Other: Voiding Method Toilet Toilet Toilet Bedpan Bedpan # Voids 3 # Bowel Movements 1 - Exam Constitutional: No acute distress, conversant, pleasant Eyes: Anicteric sclerae, moist conjunctiva, no lid-lag, PERRLA ENMT: NC/AT,Oropharynx clear, no erythema, exudates Neck:Supple, FROM, no masses, or JVD, No carotid bruits; No thyromegaly Lungs: Clear to auscultation, Clear to percussion, Normal respiratory effort, no accessory muscle use Cardiovascular: Heart regular in rate and rhythm, No murmurs, gallops, or rubs no peripheral edema Abdominal: Soft tender to palpation around her incision which can be expected, no significant erythema noted non distended, no guarding, no rebound or rigidity, Normoactive bowel sounds , biloma drain catheter with bloody drainage Skin: Normal temperature, tone, texture, turgor, No induration No subcutaneous nodules, No rash, lesions, No ulcers Extremities:No digital cyanosis No clubbing, Pedal pulses intact and symmetrical Radial pulses intact and symmetrical Normal gait and station, No calf tenderness Psychiatric: Alert and oriented to person, place and time, Appropriate affect Intact judgement Neuro: Muscles Strength 5/5 in all 4 extremities, Sensation to light touch grossly present throughout, Cranial nerves II-XII grossly intact. No focal sensory deficits - Labs CBC & Chem 7: 02/07/19 09:39 02/07/19 09:39 Labs: Abnormal Lab Results - Last 24 Hours (Table) 02/07/19 02/07/19 Range/Units 09:39 09:39 RBC 2.80 L (3.80-5.40) m/uL Hgb 8.7 L D (11.4-16.0) gm/dL Hct 27.9 L (34.0-46.0) % Eosinophils # 0.8 H (0-0.7) k/uL Glucose 131 H (74-99) mg/dL AST 61 H (14-36) U/L ALT 63 H (9-52) U/L Alkaline Phosphatase 178 H (38-126) U/L Total Protein 6.0 L (6.3-8.2) g/dL Albumin 3.3 L (3.5-5.0) g/dL Microbiology - Last 24 Hours (Table) 02/06/19 15:20 Gram Stain - Preliminary Ascites Fluid Body Fluid Culture - Preliminary 02/06/19 15:20 Anaerobic Culture - Preliminary Ascites Fluid Assessment and Plan (1) Essential hypertension Narrative/Plan: * Blood pressure continues to be stable on current regimen Current Visit: Yes Status: Acute Code(s): I10 - ESSENTIAL (PRIMARY) HYPERTENSION SNOMED Code(s): 66633231 (2) Abdominal pain Current Visit: Yes Status: Acute Code(s): R10.9 - UNSPECIFIED ABDOMINAL PAIN SNOMED Code(s): 91520337 (3) Normocytic anemia due to blood loss Narrative/Plan: * Hemoglobin down to 8.7 from 10.6 approximately 2 g drop * We'll continue to monitor recheck hemoglobin and CBC tomorrow Current Visit: Yes Status: Acute Code(s): D50.0 - IRON DEFICIENCY ANEMIA SECONDARY TO BLOOD LOSS (CHRONIC) SNOMED Code(s): 715281305 (4) Postoperative bile leak Narrative/Plan: * Status post CT-guided drainage of bilioma * Patient continues to have bloody drainage of the bilioma drain catheter Current Visit: Yes Status: Acute Code(s): K91.89 - OTH POSTPROCEDURAL COMPLICATIONS AND DISORDERS OF DGSTV SYS; K83.8 - OTHER SPECIFIED DISEASES OF BILIARY TRACT SNOMED Code(s): 443767417 (5) Leukocytosis Current Visit: Yes Status: Resolved Code(s): D72.829 - ELEVATED WHITE BLOOD CELL COUNT, UNSPECIFIED SNOMED Code(s): 083337796 (6) Intractable vomiting with nausea Current Visit: Yes Status: Resolved Code(s): R11.2 - NAUSEA WITH VOMITING, UNSPECIFIED SNOMED Code(s): 174991887 (7) Status post cholecystectomy Narrative/Plan: * Open cholecystectomy performed at [facility] 01/28/19 Current Visit: Yes Status: Acute Code(s): Z90.49 - ACQUIRED ABSENCE OF OTHER SPECIFIED PARTS OF DIGESTIVE TRACT SNOMED Code(s): 045873892 Plan: * Patient having some post procedure drop in hemoglobin approximately 2 g we'll recheck CBC tomorrow * Continue to follow with you
--- NOTE | 2019-02-07 16:11 | P.PN ---
Subjective Progress Note Date: 02/07/19 Principal diagnosis: Abdominal pain postcholecystectomy Patient feels somewhat better today. She is afebrile. White blood cell count normal. Patient's drain has put out very little since yesterday. Remains mostly serosanguineous in appearance. No definite bile appearance. Objective - Vital Signs Vital signs: Vital Signs Temp 98.8 F 02/07/19 12:32 Pulse 81 02/07/19 12:32 Resp 18 02/07/19 15:11 BP 99/53 02/07/19 12:32 Pulse Ox 92 L 02/07/19 12:32 Intake & Output 02/06/19 02/07/19 02/07/19 18:59 06:59 18:59 Intake Total 1320 Balance 1320 Intake: Intake, IV Titration 1200 Amount Sodium Chloride 0.9% 1, 1200 000 ml @ 150 mls/hr IV . Q6H40M [facility] Rx#:[id number] Oral 120 Other: Voiding Method Toilet Toilet Toilet Bedpan Bedpan # Voids 3 # Bowel Movements 1 - Exam Abdomen: Soft, nondistended, incision clean and dry, mild tenderness right upper quadrant - Labs CBC & Chem 7: 02/07/19 09:39 02/07/19 09:39 Labs: Abnormal Lab Results - Last 24 Hours (Table) 02/07/19 02/07/19 Range/Units 09:39 09:39 RBC 2.80 L (3.80-5.40) m/uL Hgb 8.7 L D (11.4-16.0) gm/dL Hct 27.9 L (34.0-46.0) % Eosinophils # 0.8 H (0-0.7) k/uL Glucose 131 H (74-99) mg/dL AST 61 H (14-36) U/L ALT 63 H (9-52) U/L Alkaline Phosphatase 178 H (38-126) U/L Total Protein 6.0 L (6.3-8.2) g/dL Albumin 3.3 L (3.5-5.0) g/dL Microbiology - Last 24 Hours (Table) 02/06/19 15:20 Gram Stain - Preliminary Ascites Fluid Body Fluid Culture - Preliminary 02/06/19 15:20 Anaerobic Culture - Preliminary Ascites Fluid Assessment and Plan (1) Abdominal pain Narrative/Plan: Patient with abdominal pain postcholecystectomy with fluid collection seen on CAT scan. No definite bile leak based on appearance of drain fluid. Fluid was sent for total bilirubin was results are pending. Will advance diet. Reevaluate tomorrow. Current Visit: Yes Status: Acute Code(s): R10.9 - UNSPECIFIED ABDOMINAL PAIN SNOMED Code(s): 79940601
[2019-02-07] MEDS: LEVOFLOXACIN 500MG-D5W PMX 500 MG in DEXTROSE/WATER 1 100ML.BAG IVPB SCH (16:23)
[2019-02-07] MEDS: NON-FORMULARY DRUG (Imatinib Mesylate [Gleevec] 400 MG) PO SCH (20:03)
[2019-02-07] MEDS: ALPRAZolam 0.5 MG TAB PO SCH (20:05)
[2019-02-07] MEDS: AMITRIPTYLINE HCL 25 MG TAB PO SCH (20:05)
[2019-02-07] MEDS: DIPHENOX-ATROP 2.5-0.025 MG 1 EACH TAB PO PRN (20:55)
[2019-02-08] MEDS: ACETAMINOPHEN TAB 325 MG TAB PO PRN ×2 (02:10→07:37)
[2019-02-08] MEDS: SODIUM CHLORIDE 0.9% 1,000 ML IV SCH ×4 (04:26→20:40)
[2019-02-08] MEDS: CHOLECALCIFEROL 1,000 UNIT TAB PO SCH (07:35)
[2019-02-08] MEDS: LORATADINE 10 MG TAB PO SCH (07:36)
[2019-02-08] MEDS: FAMOTIDINE 20 MG TAB PO SCH ×2 (07:36→20:39)
[2019-02-08] MEDS: SENNOSIDES-DOCUSATE SODIUM 1 EACH TAB PO SCH ×2 (07:36→20:37)
[2019-02-08] MEDS: ESCITALOPRAM 20 MG TAB PO SCH (07:36)
[2019-02-08] MEDS: VERAPAMIL SR 180 MG TABLET.ER PO SCH (07:36)
[2019-02-08 08:56] LABS: HCT 26.3 % (34.0-46.0); HGB 8.4 gm/dL (11.4-16.0); Hypochromasia Slight; MCH 31.9 pg (25.0-35.0); MCV 99.5 fL (80.0-100.0); Macrocytosis Slight; Mean Platelet Volume 7.5; Platelet Count 202 k/uL (150-450); RBC 2.64 m/uL (3.80-5.40); RDW 14.4 % (11.5-15.5); WBC 5.6 k/uL (3.8-10.6)
[2019-02-08 09:10] LABS: Albumin 3.1 g/dL (3.5-5.0); Calcium 8.8 mg/dL (8.4-10.2); Potassium 3.8 mmol/L (3.5-5.1); Total Bilirubin 0.4 mg/dL (0.2-1.3); Total Protein 5.9 g/dL (6.3-8.2)
[2019-02-08] MEDS: DIPHENOX-ATROP 2.5-0.025 MG 1 EACH TAB PO PRN (09:15)
--- NOTE | 2019-02-08 09:19 | P.PN ---
Subjective Progress Note Date: 02/08/19 Principal diagnosis: Abdominal pain postcholecystectomy Patient states she feels slightly better today. Still having some loose stools. Liver enzymes improved today. White blood cell count normal. Drain has been scant since yesterday and remains serosanguineous in appearance. Fluid for bile level still pending. Objective - Vital Signs Vital signs: Vital Signs Temp 98.5 F 02/08/19 05:00 Pulse 75 02/08/19 05:00 Resp 18 02/08/19 05:00 BP 132/81 02/08/19 05:00 Pulse Ox 93 L 02/08/19 05:00 Intake & Output 02/07/19 02/08/19 02/08/19 18:59 06:59 18:59 Intake Total 240 550 200 Output Total 50 Balance 240 500 200 Intake: Oral 240 550 200 Output: Drainage 50 Right Abdomen 50 Other: Voiding Method Toilet Toilet Toilet # Voids 5 1 1 # Bowel Movements 5 1 1 - Exam Abdomen: Soft, nondistended, mild incisional tenderness, incisions clean and dry - Labs CBC & Chem 7: 02/08/19 08:19 02/08/19 08:19 Labs: Abnormal Lab Results - Last 24 Hours (Table) 02/07/19 02/07/19 02/08/19 Range/Units 09:39 09:39 08:19 RBC 2.80 L 2.64 L (3.80-5.40) m/uL Hgb 8.7 L D 8.4 L (11.4-16.0) gm/dL Hct 27.9 L 26.3 L (34.0-46.0) % Eosinophils # 0.8 H (0-0.7) k/uL Chloride (98-107) mmol/L Glucose 131 H (74-99) mg/dL AST 61 H (14-36) U/L ALT 63 H (9-52) U/L Alkaline Phosphatase 178 H (38-126) U/L Total Protein 6.0 L (6.3-8.2) g/dL Albumin 3.3 L (3.5-5.0) g/dL 02/08/19 Range/Units 08:19 RBC (3.80-5.40) m/uL Hgb (11.4-16.0) gm/dL Hct (34.0-46.0) % Eosinophils # (0-0.7) k/uL Chloride 110 H (98-107) mmol/L Glucose 113 H (74-99) mg/dL AST (14-36) U/L ALT (9-52) U/L Alkaline Phosphatase 149 H (38-126) U/L Total Protein 5.9 L (6.3-8.2) g/dL Albumin 3.1 L (3.5-5.0) g/dL Microbiology - Last 24 Hours (Table) 02/06/19 15:20 Gram Stain - Preliminary Ascites Fluid Body Fluid Culture - Preliminary Assessment and Plan (1) Abdominal pain Narrative/Plan: Patient overall doing better. Bile leak appears unlikely at this time given appearance of drain. Await final studies on drain fluid. Cultures remain n egative. Continue diet as tolerated. Anticipate discharge tomorrow with drain removal prior to discharge. Current Visit: Yes Status: Acute Code(s): R10.9 - UNSPECIFIED ABDOMINAL PAIN SNOMED Code(s): 75137295
[2019-02-08] MEDS: MORPHINE SULFATE 4 MG/ML SYRINGE IV PRN ×3 (12:31→21:45)
--- NOTE | 2019-02-08 13:20 | P.PN ---
Subjective Progress Note Date: 02/08/19 Principal diagnosis: The patient is a morbidly obese 53-year-old female with a past medical history of GIST post chemotherapy and post open cholecystectomy 01/28/19 at [facility] in [place] that was admitted to the general surgery service after she presented to the ER with complaints of increasing abdominal discomfort intractable nausea and vomiting and diarrhea progressively worsening since Sunday. The patient denied any chest pain or shortness of breath, she denies any subjective fevers chills or night sweats. CT abdomen and pelvis was consistent with fluid collection of the gallbladder fossa thought to represent a small bile leak, small fluid collection in the rectus abdominis. Subsequent HIDA scan suggested biliary leak and interventional radiology was consulted to perform CT guided biloma drainage with fluid sent for analysis. Patient is noted to be afebrile but had a white count of 13.2. Patient seen and examined at bedside reports that her abdominal pain is significantly improved as is her nausea and vomiting denies any subjective fevers chills or night sweats. having some loose stools. minimal drain in bilioma catheter. Afebrile overnight leukocytosis has resolved. Objective - Vital Signs Vital signs: Vital Signs Temp 98.3 F 02/08/19 12:38 Pulse 82 02/08/19 12:38 Resp 16 02/08/19 12:38 BP 115/76 02/08/19 12:38 Pulse Ox 93 L 02/08/19 12:38 Intake & Output 02/07/19 02/08/19 02/08/19 18:59 06:59 18:59 Intake Total 240 550 400 Output Total 50 Balance 240 500 400 Intake: Oral 240 550 400 Output: Drainage 50 Right Abdomen 50 Other: Voiding Method Toilet Toilet Toilet # Voids 5 1 2 # Bowel Movements 5 1 1 - Exam Constitutional: No acute distress, conversant, pleasant Eyes: Anicteric sclerae, moist conjunctiva, no lid-lag, PERRLA ENMT: NC/AT,Oropharynx clear, no erythema, exudates Neck:Supple, FROM, no masses, or JVD, No carotid bruits; No thyromegaly Lungs: Clear to auscultation, Clear to percussion, Normal respiratory effort, no accessory muscle use Cardiovascular: Heart regular in rate and rhythm, No murmurs, gallops, or rubs no peripheral edema Abdominal: Soft tender to palpation around her incision which can be expected, no significant erythema noted non distended, no guarding, no rebound or rigidity, Normoactive bowel sounds , biloma drain catheter with bloody drainage Skin: Normal temperature, tone, texture, turgor, No induration No subcutaneous nodules, No rash, lesions, No ulcers Extremities:No digital cyanosis No clubbing, Pedal pulses intact and symmetrical Radial pulses intact and symmetrical Normal gait and station, No calf tenderness Psychiatric: Alert and oriented to person, place and time, Appropriate affect Intact judgement Neuro: Muscles Strength 5/5 in all 4 extremities, Sensation to light touch grossly present throughout, Cranial nerves II-XII grossly intact. No focal sensory deficits - Labs CBC & Chem 7: 02/08/19 08:19 02/08/19 08:19 Labs: Abnormal Lab Results - Last 24 Hours (Table) 02/08/19 02/08/19 Range/Units 08:19 08:19 RBC 2.64 L (3.80-5.40) m/uL Hgb 8.4 L (11.4-16.0) gm/dL Hct 26.3 L (34.0-46.0) % Chloride 110 H (98-107) mmol/L Glucose 113 H (74-99) mg/dL Alkaline Phosphatase 149 H (38-126) U/L Total Protein 5.9 L (6.3-8.2) g/dL Albumin 3.1 L (3.5-5.0) g/dL Microbiology - Last 24 Hours (Table) 02/06/19 15:20 Gram Stain - Preliminary Ascites Fluid Body Fluid Culture - Preliminary Assessment and Plan (1) Essential hypertension Narrative/Plan: * Blood pressure continues to be stable on current regimen Current Visit: Yes Status: Acute Code(s): I10 - ESSENTIAL (PRIMARY) HY PERTENSION SNOMED Code(s): 85113105 (2) Abdominal pain Current Visit: Yes Status: Acute Code(s): R10.9 - UNSPECIFIED ABDOMINAL PAIN SNOMED Code(s): 08105778 (3) Normocytic anemia due to blood loss Narrative/Plan: * Hemoglobin stable at 8.4 * We'll continue to monitor recheck hemoglobin and CBC tomorrow Current Visit: Yes Status: Acute Code(s): D50.0 - IRON DEFICIENCY ANEMIA SECONDARY TO BLOOD LOSS (CHRONIC) SNOMED Code(s): 574529733 (4) Postoperative bile leak Narrative/Plan: * Status post CT-guided drainage of bilioma * Patient continues to have bloody drainage of the bilioma drain catheter Current Visit: Yes Status: Acute Code(s): K91.89 - OTH POSTPROCEDURAL COMPLICATIONS AND DISORDERS OF DGSTV SYS; K83.8 - OTHER SPECIFIED DISEASES OF BILIARY TRACT SNOMED Code(s): 038671425 (5) Leukocytosis Current Visit: Yes Status: Resolved Code(s): D72.829 - ELEVATED WHITE BLOOD CELL COUNT, UNSPECIFIED SNOMED Code(s): 226835982 (6) Intractable vomiting with nausea Current Visit: Yes Status: Resolved Code(s): R11.2 - NAUSEA WITH VOMITING, UNSPECIFIED SNOMED Code(s): 623472519 (7) Status post cholecystectomy Narrative/Plan: * Open cholecystectomy performed at [facility] 01/28/19 Current Visit: Yes Status: Acute Code(s): Z90.49 - ACQUIRED ABSENCE OF OTHER SPECIFIED PARTS OF DIGESTIVE TRACT SNOMED Code(s): 917642580 Plan: * Patient hg table * Hemodynamically stable, we'll sign off
[2019-02-08] MEDS: LEVOFLOXACIN 500MG-D5W PMX 500 MG in DEXTROSE/WATER 1 100ML.BAG IVPB SCH (15:29)
[2019-02-08] MEDS ORDERED: PROCHLORPERAZINE 10 MG TAB PO PRN (18:31)
[2019-02-08] MEDS: NON-FORMULARY DRUG (Imatinib Mesylate [Gleevec] 400 MG) PO SCH (20:37)
[2019-02-08] MEDS: AMITRIPTYLINE HCL 25 MG TAB PO SCH (20:39)
[2019-02-08] MEDS: ALPRAZolam 0.5 MG TAB PO SCH (20:39)
[2019-02-09 06:44] VITALS: BP 112/70; PULSE 83; RESP 18; TEMP 98.1
[2019-02-09] MEDS: SODIUM CHLORIDE 0.9% 1,000 ML IV SCH (06:49)
[2019-02-09] MEDS: SENNOSIDES-DOCUSATE SODIUM 1 EACH TAB PO SCH (08:00)
[2019-02-09] MEDS: CHOLECALCIFEROL 1,000 UNIT TAB PO SCH (08:03)
[2019-02-09] MEDS: LORATADINE 10 MG TAB PO SCH (08:03)
[2019-02-09] MEDS: DIPHENOX-ATROP 2.5-0.025 MG 1 EACH TAB PO PRN (08:04)
[2019-02-09] MEDS: ACETAMINOPHEN TAB 325 MG TAB PO PRN (08:04)
[2019-02-09] MEDS: VERAPAMIL SR 180 MG TABLET.ER PO SCH (08:04)
[2019-02-09] MEDS: ESCITALOPRAM 20 MG TAB PO SCH (08:04)
[2019-02-09] MEDS: FAMOTIDINE 20 MG TAB PO SCH (08:04)
--- NOTE | 2019-02-09 12:51 | P.DS ---
Providers Date of admission: 02/07/19 17:02 Expected date of discharge: 02/09/19 Attending physician: Renzo Stapleton Consults: 02/06/19 15:09 Consult Physician Routine Consulting Provider: Pina Espinoza Consult Reason/Comments: medical management Do you want consulting provider notified?: Yes Primary care physician: Jerome Munoz - Discharge Diagnosis(es) (1) Abdominal pain 53-year-old female admitted to the hospital with abdominal pain post-open cholecystectomy at [facility] approximately 2 weeks ago. The patient had a CAT scan showing fluid in the gallbladder fossa. She went for percutaneous drain placement with suspected diagnosis of biloma after HIDA scan suspected a leak. Fluid from the drainage procedure negative for the appearance of bile. She has felt better since the drain procedure. It has put out minimal fluid since it was initially placed however. Cultures have been negative. She is doing well at this time. Tolerating diet. She is afebrile. White blood cell count is normal. Abdominal examination reveals an incision that is healing nicely. Minimal tenderness. We'll discharge today. Follow-up with primary care post discharge. Drain removed today. Current Visit: Yes Status: Acute Patient Condition at Discharge: Fair Plan - Discharge Summary Discharge Rx Participant: No New Discharge Prescriptions: No Action Ondansetron Odt [Zofran Odt] 4 mg PO Q6H PRN PRN Reason: Nausea Verapamil HCl [Verapamil ER] 360 mg PO DAILY Fluticasone Propionate [Flonase Allergy Relief] 2 spray EA NOSTRIL DAILY PRN PRN Reason: Allergy Symptoms Cholecalciferol (Vitamin D3) [Vitamin D3] 2,000 unit PO DAILY ALPRAZolam [Xanax] 0.5 mg PO BID oxyCODONE HCL [Roxicodone] 5 mg PO Q4H PRN PRN Reason: Pain Sennosides/Docusate Sodium [Senna-S Laxative Tablet] 1 tab PO BID Famotidine [Pepcid] 20 mg PO BID Nystatin 100,000 Unit/gm Powd [Mycostatin Powder] 1 applic TOPICAL BID PRN PRN Reason: Rash Diphenox-Atrop 2.5-0.025 mg [Lomotil] 1 tab PO DAILY PRN PRN Reason: Diarrhea Imatinib Mesylate [Gleevec] 400 mg PO HS Furosemide [Lasix] 40 mg PO DAILY PRN PRN Reason: SWELLING Docusate [Colace] 100 mg PO BID PRN PRN Reason: Constipation Cyclobenzaprine [Flexeril] 5 mg PO TID PRN PRN Reason: Muscle Spasm Clotrimazole/Betameth Cream [Lotrisone] 1 applic TOPICAL BID PRN PRN Reason: Itching Amitriptyline HCl 50 mg PO HS Fexofenadine HCl 180 mg PO DAILY Acetaminophen [Tylenol] 650 mg PO Q6H PRN PRN Reason: Pain Escitalopram [Lexapro] 20 mg PO DAILY Discharge Medication List ALPRAZolam [Xanax] 0.5 mg PO BID 02/05/19 [History] Acetaminophen [Tylenol] 650 mg PO Q6H PRN 02/05/19 [History] Amitriptyline HCl 50 mg PO HS 02/05/19 [History] Cholecalciferol (Vitamin D3) [Vitamin D3] 2,000 unit PO DAILY 02/05/19 [History] Clotrimazole/Betameth Cream [Lotrisone] 1 applic TOPICAL BID PRN 02/05/19 [History] Cyclobenzaprine [Flexeril] 5 mg PO TID PRN 02/05/19 [History] Diphenox-Atrop 2.5-0.025 mg [Lomotil] 1 tab PO DAILY PRN 02/05/19 [History] Docusate [Colace] 100 mg PO BID PRN 02/05/19 [History] Famotidine [Pepcid] 20 mg PO BID 02/05/19 [History] Fexofenadine HCl 180 mg PO DAILY 02/05/19 [History] Fluticasone Propionate [Flonase Allergy Relief] 2 spray EA NOSTRIL DAILY PRN 02/05/19 [History] Furosemide [Lasix] 40 mg PO DAILY PRN 02/05/19 [History] Imatinib Mesylate [Gleevec] 400 mg PO HS 02/05/19 [History] Nystatin 100,000 Unit/gm Powd [Mycostatin Powder] 1 applic TOPICAL BID PRN 02/05/19 [History] Ondansetron Odt [Zofran Odt] 4 mg PO Q6H PRN 02/05/19 [History] Sennosides/Docusate Sodium [Senna-S Laxative Tablet] 1 tab PO BID 02/05/19 [History] Verapamil HCl [Verapamil ER] 360 mg PO DAILY 02/05/19 [History] oxyCODONE HCL [Roxicodone] 5 mg PO Q4H PRN 02/05/19 [History] Escitalopram [Lexapro] 20 mg PO DAILY 02/07/19 [History] Follow up Appointment(s)/Referral(s): Jerome Munoz MD [Primary Care Provider] - 1-2 days
== END 2019-02-09 14:16 | disposition home or self-care (01) | DRG 948 ==
LOC: EC 16:45 → 4MS4W 23:17 → OBSVTOIN 02-07 17:02
PROVIDERS: ADMIT Surgery; ATTEND Surgery
PROC: 0W9G30Z Drainage of Peritoneal Cavity with Drainage Device, Percutaneous Approach (ICD-10-PCS; principal; 2019-02-06 13:40)
DX: R18.8 Other ascites (principal); C49.A0 Gastrointestinal stromal tumor, unspecified site; Z68.43 Body mass index [BMI] 50.0-59.9, adult; E66.01 Morbid (severe) obesity due to excess calories; R10.9 Unspecified abdominal pain; D50.0 Iron deficiency anemia secondary to blood loss (chronic); D72.829 Elevated white blood cell count, unspecified; F32.9 Major depressive disorder, single episode, unspecified; F41.9 Anxiety disorder, unspecified; I10 Essential (primary) hypertension; K21.9 Gastro-esophageal reflux disease without esophagitis; Z90.49 Acquired absence of other specified parts of digestive tract; Z79.899 Other long term (current) drug therapy; Z88.0 Allergy status to penicillin; Z88.1 Allergy status to other antibiotic agents; Z91.012 Allergy to eggs; Z82.49 Family history of ischemic heart disease and other diseases of the circulatory system
CPT/HCPCS: 36415; 74018; 74177; 75989; 78226; 80053; 81001; 82150; 83690; 85025; 85027; 85610; 87070; 87075; 87205; 88108; 88305; 96361; 96374; 96375; 99285

== ENCOUNTER → 2019-02-17 | Outpatient (CLI) | payer MEDICARE, BC ==
[2019-02-17 09:38] VITALS: BP 145/84; PULSE 83; RESP 18; TEMP 98.1
[2019-02-17 10:56] LABS: Albumin 3.8 g/dL (3.5-5.0); Calcium 9.5 mg/dL (8.4-10.2); Potassium 3.8 mmol/L (3.5-5.1); Total Bilirubin 0.5 mg/dL (0.2-1.3); Total Protein 7.1 g/dL (6.3-8.2)
[2019-02-17 11:08] LABS: Basophils # (A) 0.1 k/uL (0-0.2); Basophils % (A) 1 %; Eosinophils # (A) 0.9 k/uL (0-0.7); Eosinophils % (A) 14 %; HCT 31.5 % (34.0-46.0); HGB 10.3 gm/dL (11.4-16.0); Hypochromasia Moderate; Lymphocytes % (A) 16 %; MCH 31.5 pg (25.0-35.0); MCHC 32.7 g/dL (31.0-37.0); MCV 96.2 fL (80.0-100.0); Mean Platelet Volume 8.1; Monocytes # (A) 0.4 k/uL (0-1.0); Monocytes % (A) 7 %; Neutrophils # (A) 3.8 k/uL (1.3-7.7); Neutrophils % (A) 61 %; Platelet Count 250 k/uL (150-450); RBC 3.27 m/uL (3.80-5.40); RDW 14.5 % (11.5-15.5); WBC 6.3 k/uL (3.8-10.6)
[2019-02-17 11:11] LABS: T4, Free (Free Thyroxine) 0.96 ng/dL (0.78-2.19)
[2019-02-17 14:31] LABS: Erythrocyte Sedimentation Rate 64 mm/hr (0-20)
== END | disposition home or self-care (01) ==
LOC: PROCWHC3 09:23
PROVIDERS: ATTEND Internal Medicine
DX: I10 Essential (primary) hypertension (principal); E55.9 Vitamin D deficiency, unspecified
CPT/HCPCS: 84439; 84481; 80053; 85652; 84443; 85025; 82306; 36591; J1642

== ENCOUNTER → 2019-06-25 | Outpatient (CLI) | payer MEDICARE, BC ==
[2019-06-25 08:57] VITALS: BP 123/79; PULSE 80; RESP 18; TEMP 97.6; BMI 56.7
--- NOTE | 2019-06-25 10:41 | P.HPOB ---
History of Present Illness H&P Date: 06/25/19 Chief Complaint: The patient is here for her routine gynecologic exam and ma mmogram. This is a 54-year-old 013 with an LMP of 2011. The patient is here to establish with this office. She does have a history of chronic vulvar irritation and has been treated with betamethasone gel which she uses as needed. She previously saw Dr. Sheppard for her regular gynecologic exams and it has been about 2 years since her last pelvic exam. She was once told by Dr. Sheppard that she would probably require a vulvar biopsy because of the chronic vulvar irritation. This was not done. She states the vulvar irritation and itching started in 2013. The betamethasone gel has been helpful, but the irritation does not completely go away. The irritation is an area of the vulva but extends toward the rectum. She denies any postmenopausal bleeding. Review of Systems Her weight has been stable, but she has been trying to lose weight. She denies respiratory or cardiac problems. GI: Occasional gastric reflux symptoms. 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 Chronic sinusitis, seasonal ALLERGIES and fatty liver. 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 Chronic vulvar pruritus. History of Any Multi-Drug Resistant Organisms: None Reported Past Surgical History: Breast Surgery, Section, Cholecystectomy Additional Past Surgical History / Comment(s): bowel resection, csectionx3, D&C, sinus surgery, cataract surgery, breast biopsy, port placement, right breast lumpectomy which was benign. Past Anesthesia/Blood Transfusion Reactions: No Reported Reaction Past Psychological History: Anxiety, Depression Smoking Status: Never smoker Past Alcohol Use History: Rare (0-1 per month) Past Drug Use History: None Reported Additional History: She is been since 1984. She is considered disabled. - Past Family History Father Family Medical History: Hypertension Additional Family Medical History / Comment(s): of aneursym Mother Family Medical History: Coronary Artery Disease (CAD), Diabetes Mellitus Additional Family Medical History / Comment(s): Maternal grandmother had oral cancer. One cousin had lymphoma and another cousin had colon cancer. Medications and Allergies Home Medications Medication Instructions Recorded Confirmed Type ALPRAZolam [Xanax] 0.5 mg PO BID 02/05/19 06/25/19 History Acetaminophen [Tylenol] 650 mg PO Q6H PRN 02/05/19 06/25/19 History Amitriptyline HCl 50 mg PO HS 02/05/19 06/25/19 History Cholecalciferol (Vitamin D3) 2,000 unit PO DAILY 02/05/19 06/25/19 History [Vitamin D3] Famotidine [Pepcid] 20 mg PO BID 02/05/19 06/25/19 History Furosemide [Lasix] 40 mg PO DAILY PRN 02/05/19 06/25/19 History Imatinib Mesylate [Gleevec] 400 mg PO HS 02/05/19 06/25/19 History Verapamil HCl [Verapamil ER] 360 mg PO DAILY 02/05/19 06/25/19 History Escitalopram [Lexapro] 20 mg PO DAILY 02/07/19 06/25/19 History Betamethasone Dipropionate 1 applic TOPICAL DAILY 06/25/19 06/25/19 History [Betamethasone Diprop Augm Gel 0.05%] Fexofenadine HCl [Veronica Allergy] 1 tab PO DAILY PRN 06/25/19 06/25/19 History Ibuprofen [Motrin] 800 mg PO DAILY 06/25/19 06/25/19 History Allergies Allergy/AdvReac Type Severity Reaction Status Date / Time ampicillin Allergy Unknown Verified 02/17/19 09:32 cephalexin monohydrate Allergy Unknown Verified 02/17/19 09:32 [From Keflex] erythromycin base Allergy Unknown Verified 02/17/19 09:32 [Erythromycin Base] Penicillins Allergy Unknown Verified 02/17/19 09:32 tetracycline [Tetracycline] Allergy Unknown Verified 02/17/19 09:32 Exam Vital Signs Temp Pulse Resp BP Pulse Ox 06/25/19 08:51 97.6 F 80 18 123/79 97 Intake and Output 06/24/19 06/25/19 06/25/19 22:59 06:59 14:59 Other: Weight 140.614 kg Height 5 feet 2 inches, weight 310 pounds, BMI 56.7. This is a well-developed well-nourished obese white female who is alert and oriented times 3 in no acute distress. HEENT: Within normal limits. NECK: Supple without mass or thyromegaly. CHEST AND LUNGS: Clear to auscultation. There is a palpable port in the right subclavicular area right of the midline. This is nontender HEART: Regular rate and rhythm. BREASTS: Are without mass or discharge. AXILLARY EXAM: Negative for adenopathy. BACK: Negative for CVA tenderness. ABDOMEN: Soft, obese, nontender, without palpable masses. PELVIC EXAM: External genitalia reveals mild atrophy and generalized pallor throughout the labia majora and labia minora. This extends down to the perineum. There are no focal lesions or ulcerations. Cervix and vagina appear normal with mild atrophy. There is no unusual discharge. There is no evidence of prolapse. The uterus is midposition, nongravid size and nontender. There are no palpable adnexal masses or tenderness. Bimanual examination is somewhat limited secondary to her size. RECTAL EXAM: Rectovaginal exam is negative for mass or tenderness and is negative for occult blood. EXTREMITIES: Nontender. IMPRESSION: 1. 54-year-old menopausal female with generalized vulvar pallor. Differential diagnosis will include lichen sclerosis, hypertrophic vulvitis, and vulvar dysplasia. 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 2. Multiple medical problems PLAN: 1. Pap smear was performed. 2. Self breast awareness was discussed with the patient. 3. Screening mammogram will be done today. 4. I recommended vulvar biopsy. This will be scheduled. 5. She was advised to return in one year for her annual well woman exam.
--- NOTE | 2019-06-27 11:55 | MM ---
Reason for exam: screening (asymptomatic). Last mammogram was performed 1 year and 7 months ago. History: Patient is postmenopausal and has history of other cancer at age 48. Excisional biopsy of the right breast, February 12, 2007. Benign excisional biopsy of the right breast, August 24, 1999. Physical Findings: A clinical breast exam by your physician is recommended on an annual basis and results should be correlated with mammographic findings. MG 3D Screening Mammo W/Cad Bilateral CC and MLO view(s) were taken. Prior study comparison: December 07, 2017, bilateral MG 3d screening mammo w/cad. September 13, 2016, bilateral MG 3d screening mammo w/cad. There are scattered fibroglandular densities. There is no discrete abnormality. No significant changes when compared with prior studies. ASSESSMENT: Negative, BI-RAD 1 RECOMMENDATION: Routine screening mammogram of both breasts in 1 year.
== END | disposition home or self-care (01) ==
LOC: WWCWWP 08:44
PROVIDERS: ATTEND Obstetrics & Gynecology
DX: Z12.31 Encounter for screening mammogram for malignant neoplasm of breast (principal)
CPT/HCPCS: 77063; 77067

== ENCOUNTER → 2019-07-02 | Day surgery (SDC) | payer MEDICARE, BC ==
[2019-07-02 12:19] VITALS: BP 135/80; PULSE 88; RESP 18; TEMP 98.1; BMI 56.7
--- NOTE | 2019-07-02 13:37 | P.PCN ---
Date of Procedure: 07/02/19 Preoperative Diagnosis: Chronic vulvitis with vulvar leukoplakia Postoperative Diagnosis: Same Procedure(s) Performed: Right vulvar biopsy. Anesthesia: local Surgeon: Yazan Gu Estimated Blood Loss (ml): 1 Pathology: other (Vulvar biopsy) Condition: stable Disposition: same day Indications for Procedure: This was a 54 year old with an LMP of 2011. The patient has had vulvar irritation for 6 years and has been treated with prescription betamethasone cream with some symptomatic improvement. Vulvar leukoplakia was noted bilaterally on exam. Operative Findings: Vulvar leukoplakia was noted bilaterally on the inner aspect of the labia majora . There is no ulceration or excoriation. Description of Procedure: The procedure was explained to the patient. The patient was placed in the lithotomy position. The inner labia majora was prepped with Betadine solution. 1.5 mL of 1% lidocaine was used for local anesthesia. Following determination of adequate anesthesia a 3 mm punch biopsy instrument was used to obtain the biopsy. The specimen was elevated and tied off with a scalpel. The tissue was sent for pathological examination. A silver nitrate stick was used to obtain hemostasis. Antibiotic ointment was applied to the area. Postprocedure blood pressure was 136/88 and pulse was 91. The patient tolerated the procedure well. The estimated blood loss was 1 mL. The patient was given discharge instructions. She was instructed to apply Neosporin ointment twice a day until healed. If small bleeding, she is to hold pressure. If heavy bleeding, or bleeding that doesn't stop, unusual pain or problems, she was instructed to call.
--- NOTE | 2019-07-02 13:40 | P.PN ---
Progress Note - Text Progress Note Date: 07/02/19 OUTPATIENT FOLLOW-UP NOTE TEST(S)/RESULTS: Test results from 06/25/2019 include negative Pap smear and benign mammogram. METHOD OF NOTIFICATION: The patient was notified in person at the time of her vulvar biopsy appointment. PATIENT COMMENTS: DIAGNOSIS: If Pap smear and benign mammogram. DISCUSSION: See vulvar biopsy note PLAN:
--- NOTE | 2019-07-08 14:28 | P.PN ---
Progress Note - Text Progress Note Date: 07/08/19 OUTPATIENT FOLLOW-UP NOTE TEST(S)/RESULTS: Vulvar biopsy from 07/02/2019 showed findings consistent with lichen sclerosis. METHOD OF NOTIFICATION: Patient was notified by phone. PATIENT COMMENTS: The patient denies any significant problems from the biopsy. DIAGNOSIS: Lichen's sclerosis of the vulva. DISCUSSION: I will prescribe Temovate 0.05% ointment twice a day for up to 2 weeks. She will then use it twice a day when necessary. The electronic prescription will be sent to [facility] pharmacy in [place]. PLAN: She was advised to return in one year for her annual well woman exam and as needed.
== END ==
LOC: WWCWWP 11:59
PROVIDERS: ATTEND Obstetrics & Gynecology
DX: N90.4 Leukoplakia of vulva (principal); N94.89 Other specified conditions associated with female genital organs and menstrual cycle
CPT/HCPCS: 88305

== ENCOUNTER → 2019-11-06 | Outpatient (CLI) | payer MEDICARE, BC ==
[2019-11-06 14:45] VITALS: BP 139/66; PULSE 96; RESP 16; TEMP 98.2; BMI 58.1
--- NOTE | 2019-11-06 16:02 | P.HPBAR ---
Bariatric H&P - History & Physicial H&P Date: 11/06/19 History & Physicial: Visit/CC: Perry Consult Patient initial contact: Initial weight: 148.778 kg Initial weight in pounds: 328.00 Height: 5 ft 3 in Initial BMI: 58.1 Last weight: Current weight: 148.778 kg Current weight in pounds: 328.00 Current BMI: 58.1 [place] body weight (based on NIH guidelines): 52.163 kg Excess body weight loss: 0.0% The patient is a 54 year-old F who presents for Bariatric Assessment. Patient is well-known to our service. Currently BMI 58.1 with her weight being 148 kg. Patient has struggled with her weight for many years. She is interested in surgical weight loss. Patient has some underlying hepatic and renal issues that should be improved with successful weight loss. Patient is known to our service from previous gist tumor. Patient required open biopsy and underwent subsequent resection of the fourth portion of the duodenum at [facility]. She has done well following that. She recently underwent open cholecystectomy at [facility] as well. Her CAT scans demonstrate an anastomosis between the distal third portion of the duodenum and the jejunum. Patient is favoring sleeve gastrectomy at this time which is reasonable given her history of previous bowel intervention. She would prefer to have her surgery performed at [facility] but is interested in having a local surgeon for follow-up reasons. Patient suffers from hypertension, joint pain, and has a history of previous venous thrombosis. Many of her multiple medical issues should be improved with surgical weight loss. Denies dysphagia. 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 History of Any Multi-Drug Resistant Organisms: None Reported Past Surgical History: Cholecystectomy Additional Past Surgical History / Comment(s): bowel resection, csection, sinus surgery, cataract surgery, d&C, breast biopsy, port placement Past Anesthesia/Blood Transfusion Reactions: No Reported Reaction Past Psychological History: Anxiety, Depression Smoking Status: Never smoker Past Alcohol Use History: None Reported Past Drug Use History: None Reported - Past Family History Father Family Medical History: Hypertension Additional Family Medical History / Comment(s): of aneursym Mother Family Medical History: Coronary Artery Disease (CAD), Diabetes Mellitus Additional Family Medical History / Comment(s): Maternal grandmother had oral cancer. One cousin had lymphoma and another cousin had colon cancer. Surgical - Exam Vital Signs Temp Pulse Resp BP 98.2 F 96 16 139/66 11/06/19 14:40 11/06/19 14:40 11/06/19 14:40 11/06/19 14:40 Physical exam: General: Well-developed, well-nourished HEENT: Normocephalic, sclerae nonicteric Abdomen: Nontender, nondistended Extremities: No edema Neuro: Alert and oriented Bariatric Assessment & Plan (1) Morbid obesity with BMI of 50.0-59.9, adult Narrative/Plan: 54-year-old female with morbid obesity and associated comorbidities. Risks and benefits of the various surgical weight loss methods reviewed. Patient remains interested in sleeve gastrectomy. She states she has an appointment at [facility] in November to see an mix house operator and a bariatric surgeon. Agree with her plans to proceed with surgical weight loss. I am comfortable having the patient following-up with us once she comes back to town. Patient plans to notify me of her progress moving forward. Status: Acute Bariatric Checklist Checklist: Plan: Checklist: EGD: 1. Hiatal hernia: 2. H. Pylori: HgbA1c: Vitamin D: Smoking: Never smoker Primary care physician referral: Dr. Munoz Psychiatry clearance: Cardiology clearance: Sleep study: Diet journal: VTE risk score: VTE risk level: Rehab needs at discharge:
== END | disposition home or self-care (01) ==
LOC: BARWHC3 14:27
PROVIDERS: ATTEND Surgery
DX: Z48.815 Encounter for surgical aftercare following surgery on the digestive system (principal); E66.01 Morbid (severe) obesity due to excess calories; Z68.43 Body mass index [BMI] 50.0-59.9, adult; Z90.49 Acquired absence of other specified parts of digestive tract
CPT/HCPCS: 99211

== ENCOUNTER → 2019-11-07 | Outpatient (CLI) | payer MEDICARE, BC ==
[~2019-11-07] MED LIST: SODIUM CHLORIDE 0.9% 500 ML 500 ML in EMPTY BAG 1 BAG IV PRN
[2019-11-07 11:26] VITALS: BP 125/85; PULSE 87; RESP 16; TEMP 98.6
[2019-11-07 11:53] LABS: Basophils % (A) 1 %; Eosinophils # (A) 0.3 k/uL (0-0.7); Eosinophils % (A) 5 %; HGB 11.5 gm/dL (11.4-16.0); Lymphocytes # (A) 1.1 k/uL (1.0-4.8); Lymphocytes % (A) 18 %; MCH 32.1 pg (25.0-35.0); MCHC 32.8 g/dL (31.0-37.0); MCV 97.7 fL (80.0-100.0); Mean Platelet Volume 8.1; Monocytes # (A) 0.3 k/uL (0-1.0); Monocytes % (A) 5 %; Neutrophils # (A) 4.4 k/uL (1.3-7.7); Neutrophils % (A) 71 %; Platelet Count 237 k/uL (150-450); RBC 3.58 m/uL (3.80-5.40); RDW 13.9 % (11.5-15.5); WBC 6.3 k/uL (3.8-10.6)
[2019-11-07 11:59] LABS: Albumin 3.8 g/dL (3.5-5.0); Calcium 9.4 mg/dL (8.4-10.2); Potassium 3.9 mmol/L (3.5-5.1); Total Bilirubin 0.4 mg/dL (0.2-1.3); Total Protein 6.6 g/dL (6.3-8.2)
== END | disposition home or self-care (01) ==
LOC: PROCWHC3 10:36
PROVIDERS: ATTEND Internal Medicine
DX: E55.9 Vitamin D deficiency, unspecified (principal); R94.5 Abnormal results of liver function studies
CPT/HCPCS: 80061; 80053; 84443; 85025; 82306; 36591; J1642

== ENCOUNTER → 2020-03-01 | Outpatient (CLI) | payer MEDICARE, BC ==
--- NOTE | 2020-03-01 13:43 | CT ---
EXAMINATION TYPE: CT ChestAbdPelvis w con DATE OF EXAM: 03/01/2020 COMPARISON: Prior CT 02/05/2019 HISTORY: Follow up scan. CT DLP: 3491.7 mGycm Automated exposure control for dose reduction was used. CONTRAST: CT scan of the chest, abdomen and pelvis is performed with Oral Contrast and with IV Contrast, patien t injected with 100 mL of Isovue 300. FINDINGS: LUNGS: The lungs are grossly clear, there is no concerning parenchymal mass or nodule identified. T hickened parenchymal bands are present within the lungs. There is no pleural effusion or pneumothorax seen. The tracheobronchial tree is patent. MEDIASTINUM: There are no greater than 1 cm hilar or mediastinal lymph nodes. No pericardial effusi on is seen. AORTA: No significant abnormality is seen. OTHER: No additional significant abnormality is seen. LIVER/GB: Patient is post cholecystectomy. No evident liver mass. There may be a component of hepatic steatosis, liver shows low attenuation. Abnormal fluid in the natty no longer seen. PANCREAS: No significant abnormality is seen. SPLEEN: Spleen is borderline enlarged. ADRENALS: No significant abnormality is seen. KIDNEYS: No significant abnormality is seen. REPRODUCTIVE ORGANS: No gross abnormality seen. BOWEL: Postop changes are noted in the midabdomen at the small bowel towards the duodenal jejunal ju nction similar to prior exam FREE AIR: No Free Air visible. ASCITES: None seen. RETROPERITONEAL ADENOPATHY: No retroperitoneal adenopathy is seen. LYMPH NODES: No greater than 1 cm abdominal or pelvic lymph nodes are appreciated. URINARY BLADDER: No significant abnormality is seen. PELVIC ADENOPATHY: None visualized. OSSEOUS STRUCTURES: No significant abnormality is seen. IMPRESSION: No interval change. Postop changes. Additional findings above..
== END | disposition home or self-care (01) ==
LOC: RADPROMAIN 10:17
PROVIDERS: ATTEND Internal Medicine Hematology & Oncology
DX: D48.1 Neoplasm of uncertain behavior of connective and other soft tissue (principal); Z98.890 Other specified postprocedural states; Z88.1 Allergy status to other antibiotic agents; Z88.0 Allergy status to penicillin
CPT/HCPCS: 82565; 84520; 71260; 74177; J1642; Q9967

== ENCOUNTER → 2020-03-15 | Outpatient (CLI) | payer MEDICARE, BC ==
[2020-03-15 13:55] VITALS: BMI 56.0
== END | disposition home or self-care (01) ==
LOC: BARWHC3 08:46
PROVIDERS: ATTEND Surgery
DX: E66.01 Morbid (severe) obesity due to excess calories (principal); Z71.3 Dietary counseling and surveillance; Z68.43 Body mass index [BMI] 50.0-59.9, adult
CPT/HCPCS: 97804

== ENCOUNTER → 2020-06-02 | Outpatient (CLI) | payer MEDICARE, BC ==
--- NOTE | 2020-06-02 09:55 | US ---
EXAMINATION TYPE: US kidneys/renal and bladder DATE OF EXAM: 06/02/2020 COMPARISON: NONE CLINICAL HISTORY: N18.3 CKD. patient on chemo pill and it effects her renal labs, no symptoms, obese patient EXAM MEASUREMENTS: Right Kidney: 9.9 x 4.7 x 5.0 cm Left Kidney: 8.9 x 4.2 x 5.0 cm Right Kidney: No hydronephrosis or masses seen Left Kidney: No hydronephrosis or masses seen Bladder: wnl There is no evidence for hydronephrosis at this point in time. No nephrolithiasis is seen. No kinjal s are identified. The urinary bladder is anechoic. Bilateral ureteral jets are seen. IMPRESSION: Unremarkable study
== END | disposition home or self-care (01) ==
LOC: RADUSWWP 09:12
PROVIDERS: ATTEND Internal Medicine
DX: N18.30 Chronic kidney disease, stage 3 unspecified (principal)
CPT/HCPCS: 76770

== ENCOUNTER → 2020-06-10 | Outpatient (CLI) | payer MEDICARE, BC ==
--- NOTE | 2020-06-10 16:37 | CONS ---
CONSULTATION DATE OF SERVICE: 06/10/2020 This 55-year-old lady has been evaluated in the sleep center for possible obstructive sleep apnea-hypopnea syndrome. HISTORY OF PRESENT ILLNESS/SLEEP-WAKE EVALUATION: Patient's usual sleep schedule is from 1 or 2 a.m. until 8 or 9 a.m. According to her , she has loud snoring and episodes of choking and witnessed episodes of stopped breathing during sleep. The patient wakes up from sleep with a dry mouth, occasional gasping for air, and heartburn. In the morning the patient feels tiredness and worries about her sleep, has episodes of depression and anxiety. Eighty Eight Sleepiness Scale is 4. She usually does not take naps. No history of hypnagogic hallucinations, sleep paralysis or cataplexy. PAST MEDICAL HISTORY: Positive for gastrointestinal stromal tumor, portal vein thrombosis, hypertension, atrial node dysfunction, anemia, anxiety, bouts of nausea. MEDICATIONS: 1. Amitriptyline 25 mg once daily. 2. Famotidine 20 mg once daily. 3. Flonase 50 mcg nasal spray once daily. 4. Gleevec 400 mg once daily. 5. Lasix 20 mg once daily. 6. zine 5 mg once daily. 7. Lexapro 20 mg once daily. 8. Verapamil 240 mg extended-release twice daily. 9. Vitamin D3 1000 units 2 tablets once daily. 10.Xanax 0.5 mg twice a day. 11.Zofran 4 mg. PAST SURGICAL HISTORY: Three C-sections, D&C, 2 lumpectomies, left eye surgery for cataract, small bowel resection for GIST, several surgeries for sinuses, surgery for portal vein thrombosis. SOCIAL HISTORY: Negative for smoking or using alcohol. FAMILY HISTORY: Heart problems, cancer, stroke. REVIEW OF SYSTEMS: Difficult to initiate sleep, loud snoring with gasping for air. PHYSICAL EXAMINATION: GENERAL: A pleasant lady without distress. VITAL SIGNS: BP 144/74, HR 92, RR 15, height 5 feet 2 inches, weight 313, BMI 57.2, temperature 98.4, oxygen saturation at room air 96%. HEENT: PERRLA, EOMI. Evaluation of oropharynx showed tongue protrudes midline. Low position of soft palate. Mallampati III. NECK: Supple. No JVD. Thyroid is not palpable. Neck measures 16-1/2 inches in circumference. LUNGS: Clear to percussion and to auscultation. Good air exchange. No wheezing or rhonchi. HEART: S1, S2 regular. No murmurs, gallops or rubs. ABDOMEN: Obese. EXTREMITIES: One plus ankle edema. CAFETERIA MANAGER: Awake, alert, and oriented X3. Cranial nerves 2 to 7 intact. There is no fasciculation or atrophy. noted. No focal deficits observed. IMPRESSION: 1. Loud snoring, witnessed episodes of stopped breathing during sleep, low position of soft palate, wide neck; obstructive sleep apnea-hypopnea syndrome. 2. Psychophysiological insomnia. 3. Morbid obesity. BMI 57.2. 4. History of gastrointestinal stromal tumor, status post resection of small intestine. 5. Hypertension. 6. History of anemia. 7. History of anxiety. 8. History of anorexia. 9. Status post cholecystectomy. 10.Status post several sinus surgeries. 11.History of portal vein thrombosis. PLAN: 1. Polysomnography for evaluation of patient's breathing during sleep. 2. CPAP/BiPAP titration if sleep study confirms obstructive sleep apnea-hypopnea syndrome. 3. Preferable position during sleep on the side. 4. No driving if patient feels any sleepiness. 5. I will see patient for follow up visit to explain results of testing and following plan. 6. Stimulus control, paradoxical intention for insomnia. Thank you very much for referring this patient for consultation. Sincerely, Ambrocio Bruno MD, PhD, FAASM Diplomat of [place] [employer] [place] [employer] Quality Assurance Coordinator of [facility] [place] MMODL / IJN: [id number] /
== END | disposition home or self-care (01) ==
LOC: SLEEP 11:00
PROVIDERS: ATTEND Internal Medicine
DX: G47.33 Obstructive sleep apnea (adult) (pediatric) (principal); E66.01 Morbid (severe) obesity due to excess calories; Z90.49 Acquired absence of other specified parts of digestive tract; Z98.890 Other specified postprocedural states; Z86.59 Personal history of other mental and behavioral disorders; Z86.79 Personal history of other diseases of the circulatory system; Z87.19 Personal history of other diseases of the digestive system; Z68.43 Body mass index [BMI] 50.0-59.9, adult
CPT/HCPCS: 99211

== ENCOUNTER → 2020-08-18 | Outpatient (CLI) | payer MEDICARE, BC ==
[2020-08-18 10:02] VITALS: BP 84/42; PULSE 104; RESP 18; TEMP 98.2
--- NOTE | 2020-08-18 10:42 | P.HPOB ---
History of Present Illness H&P Date: 08/18/20 Chief Complaint: The patient is here for her routine gynecologic exam and ma mmogram. This is a 55-year-old 013 with an LMP of 2011. The patient has been using Temovate ointment for lichen sclerosus. She states it is helpful and only uses it periodically when she develops symptoms. She denies any postmenopausal bleeding and is otherwise without gynecologic complaints. Review of Systems The patient has gained 18 pounds over the last year. She is going to the [facility] for bariatric surgery in the upcoming months. She denies respiratory, cardiac, or G.I. problems. 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 She has lichen sclerosis of the vulva confirmed by biopsy in 2019. History of Any Multi-Drug Resistant Organisms: None Reported Past Surgical History: Cholecystectomy Additional Past Surgical History / Comment(s): bowel [id number], csection, sinus surgery, cataract surgery, d&C, breast biopsy, port placement Past Anesthesia/Blood Transfusion Reactions: No Reported Reaction Past Psychological History: Anxiety, Depression Smoking Status: Never smoker Past Alcohol Use History: Rare (0-1 per month) Past Drug Use History: None Reported Additional History: She has been for 1984 and is disabled. - Past Family History Father Family Medical History: Hypertension Additional Family Medical History / Comment(s): of aneursym Mother Family Medical History: Coronary Artery Disease (CAD), Diabetes Mellitus Additional Family Medical History / Comment(s): Maternal grandmother had oral cancer. One cousin had lymphoma and another cousin had colon cancer. Medications and Allergies Home Medications Medication Instructions Recorded Confirmed Type ALPRAZolam [Xanax] 0.5 mg PO BID 02/05/19 08/18/20 History Acetaminophen [Tylenol] 650 mg PO Q6H PRN 02/05/19 08/18/20 History Amitriptyline HCl 50 mg PO HS 02/05/19 08/18/20 History Cholecalciferol (Vitamin D3) 2,000 unit PO DAILY 02/05/19 08/18/20 History [Vitamin D3] Famotidine [Pepcid] 20 mg PO BID 02/05/19 08/18/20 History Furosemide [Lasix] 40 mg PO DAILY PRN 02/05/19 08/18/20 History Imatinib Mesylate [Gleevec] 400 mg PO HS 02/05/19 08/18/20 History Verapamil HCl [Verapamil ER] 360 mg PO DAILY 02/05/19 08/18/20 History Escitalopram [Lexapro] 20 mg PO DAILY 02/07/19 08/18/20 History Betamethasone Dipropionate 1 applic TOPICAL DAILY 06/25/19 08/18/20 History [Betamethasone Diprop Augm Gel 0.05%] Fexofenadine HCl [Veronica Allergy] 1 tab PO DAILY PRN 06/25/19 08/18/20 History Ibuprofen [Motrin] 800 mg PO DAILY 06/25/19 08/18/20 History Clobetasol Propionate [Temovate 1 applic TOPICAL BID PRN #30 gm 07/08/19 08/18/20 Rx 0.05% Oint] Multivit-Min/Iron/Folic/Lutein 1 each PO DAILY 08/18/20 08/18/20 History [Centrum Silver Women Tablet] Preston Tail 1 tab PO DAILY 08/18/20 08/18/20 History Allergies Allergy/AdvReac Type Severity Reaction Status Date / Time ampicillin Allergy Unknown Verified 08/18/20 09:49 cephalexin monohydrate Allergy Unknown Verified 08/18/20 09:49 [From Keflex] erythromycin base Allergy Unknown Verified 08/18/20 09:49 [Erythromycin Base] Penicillins Allergy Unknown Verified 08/18/20 09:49 tetracycline [Tetracycline] Allergy Unknown Verified 08/18/20 09:49 Exam Vital Signs Temp Pulse Resp BP Pulse Ox 08/18/20 09:55 98.2 F 104 H 18 84/42 97 Intake and Output 08/17/20 08/18/20 08/18/20 22:59 06:59 14:59 Other: Weight 148.778 kg Height 5 foot 1-1/2 inches, weight 328 pounds, BMI 61.0 This is a well-developed well-nourished obese white female who is alert and oriented times 3 in no acute distress. HEENT: Within normal limits. NECK: Supple without mass or thyromegaly. CHEST AND LUNGS: Clear to auscultation. There is a palpable port inferior to the right clavicle. HEART: Regular rate and rhythm. BREASTS: Are without mass or discharge. AXILLARY EXAM: Negative for adenopathy. BACK: Negative for CVA tenderness. ABDOMEN: Soft, obese, nontender, without palpable masses. PELVIC EXAM: Normal external genitalia with mild atrophy and minimal pallor. There are no focal lesions. Cervix and vagina appear normal with mild atrophy. There is no unusual discharge. There is no evidence of prolapse. The uterus is midposition, nongravid size and nontender. There are no palpable adnexal masses or tenderness. Bimanual examination is somewhat limited secondary to her size. RECTAL EXAM: Rectovaginal exam is negative for mass or tenderness and is negative for occult blood. EXTREMITIES: Nontender. IMPRESSION: 1. 55-year-old menopausal female with history of lichen sclerosus of the vulva controlled with Temovate ointment infrequently. 2. Obesity. PLAN: 1. Pap smear was deferred since she had a normal one in May 2019. 2. Self breast awareness was discussed with the patient. 3. Screening mammogram will be done today. 4. Osteoporosis prevention was discussed. I have stressed the importance of adequate calcium, vitamin D and regular exercise. Recommended amounts of calcium and vitamin D were also discussed. 5. Temovate ointment 0.05% twice a day when necessary. The electronic prescription will be sent to [facility] pharmacy in [place]. 6. She was advised to return in one year for her annual well woman exam.
--- NOTE | 2020-08-23 08:56 | MM ---
Reason for exam: screening (asymptomatic). Last mammogram was performed 1 year and 2 months ago. History: Patient is postmenopausal and has history of other cancer at age 48. Excisional biopsy of the right breast, February 12, 2007. Benign excisional biopsy of the right breast, August 24, 1999. Took hormonal contraceptives for 1 year. Physical Findings: A clinical breast exam by your physician is recommended on an annual basis and results should be correlated with mammographic findings. MG 3D Screening Mammo W/Cad Bilateral CC and MLO view(s) were taken. Prior study comparison: June 25, 2019, bilateral MG 3d screening mammo w/cad. December 07, 2017, bilateral MG 3d screening mammo w/cad. There are scattered fibroglandular densities. No significant changes when compared with prior studies. ASSESSMENT: Benign, BI-RAD 2 RECOMMENDATION: Routine screening mammogram of both breasts in 1 year.
== END | disposition home or self-care (01) ==
LOC: WWCWWP 09:40
PROVIDERS: ATTEND Obstetrics & Gynecology
DX: Z12.31 Encounter for screening mammogram for malignant neoplasm of breast (principal)
CPT/HCPCS: 77063; 77067

== ENCOUNTER 2020-09-28 10:01 | Day surgery (SDC) | payer MEDICARE, BC ==
[2020-09-23 12:29] VITALS: BMI 58.1
[~2020-09-28 10:01] MED LIST changes: +LACTATED RINGERS 1,000 ML IV SCH; -SODIUM CHLORIDE 0.9% 500 ML 500 ML in EMPTY BAG 1 BAG IV PRN
[2020-09-28 10:43] VITALS: RESP 16; TEMP 97.6
[2020-09-28] MEDS ORDERED: LIDOCAINE 1% INJ 10MG/ML (20 ML MDV) ONE (11:01)
[2020-09-28] MEDS ORDERED: PROPOFOL 10 MG/ML 20 ML VIAL IV ONE (11:01)
--- NOTE | 2020-09-28 11:05 | P.GSHP ---
History of Present Illness H&P Date: 09/28/20 Chief Complaint: GERD, presurgical Patient here today for upper endoscopy. Patient being evaluated for possible bariatric surgery. At [facility]. Patient with chronic reflux. History of Gist tumor. Underwent duodenal resection in the past. Past Medical History Past Medical History: Cancer, Hypertension, Renal Disease, Sleep Apnea/CPAP/BIPAP Additional Past Medical History / Comment(s): gastrointestinal cancer, liver abscess, thrombosis liver portal vein ., She has lichen sclerosis of the vulva confirmed by biopsy in 2019., uses C- Pap Machine., kidney disease stage 3., pt has port a cath. History of Any Multi-Drug Resistant Organisms: None Reported Past Surgical History: Cholecystectomy Additional Past Surgical History / Comment(s): bowel [id number], csection, sinus surgery, cataract surgery, d&C, breast biopsy, port placement Past Anesthesia/Blood Transfusion Reactions: No Reported Reaction, Motion Sickness Additional Past Anesthesia/Blood Transfusion Reaction / Comment(s): usuallly gets a "patch" Past Psychological History: Anxiety, Depression Smoking Status: Never smoker Past Alcohol Use History: Rare Past Drug Use History: None Reported - Past Family History Father Family Medical History: Hypertension Additional Family Medical History / Comment(s): of aneursym Mother Family Medical History: Coronary Artery Disease (CAD), Diabetes Mellitus Additional Family Medical History / Comment(s): Maternal grandmother had oral cancer. One cousin had lymphoma and another cousin had colon cancer. Medications and Allergies Home Medications Medication Instructions Recorded Confirmed Type ALPRAZolam [Xanax] 0.5 mg PO BID PRN 02/05/19 09/23/20 History Acetaminophen [Tylenol] 325 mg PO Q6H PRN 02/05/19 09/23/20 History Amitriptyline HCl 50 mg PO HS 02/05/19 09/23/20 History Cholecalciferol (Vitamin D3) 3,000 unit PO DAILY 02/05/19 09/23/20 History [Vitamin D3] Furosemide [Lasix] 40 mg PO DAILY PRN 02/05/19 09/23/20 History Imatinib Mesylate [Gleevec] 400 mg PO HS 02/05/19 09/23/20 History Verapamil HCl [Verapamil ER] 360 mg PO DAILY 02/05/19 09/23/20 History Escitalopram [Lexapro] 20 mg PO DAILY 02/07/19 09/23/20 History Fexofenadine HCl [Veronica Allergy] 180 tab PO DAILY PRN 06/25/19 09/23/20 History Ibuprofen [Motrin] 800 mg PO DIRECTED PRN 06/25/19 09/23/20 History Clobetasol Propionate [Temovate 1 applic TOPICAL BID PRN #30 gm 08/18/20 09/23/20 Rx 0.05% Oint] Multivit-Min/Iron/Folic/Lutein 1 each PO DAILY 08/18/20 09/23/20 History [Centrum Silver Women Tablet] Creola Tail 1 tab PO DAILY 08/18/20 09/23/20 History Omeprazole [PriLOSEC] 40 mg PO DAILY 09/23/20 09/23/20 History Allergies Allergy/AdvReac Type Severity Reaction Status Date / Time ampicillin Allergy Throat/Tongue Verified 09/28/20 10:32 Swelling, Hives cephalexin monohydrate Allergy Throat/Tongue Verified 09/28/20 10:32 [From Keflex] Swelling, Hives erythromycin base Allergy Throat/Tongue Verified 09/28/20 10:32 [Erythromycin Base] Swelling, Hives Penicillins Allergy Throat/Tongue Verified 09/28/20 10:32 Swelling, Hives tetracycline [Tetracycline] Allergy Throat/Tongue Verified 09/28/20 10:32 Swelling, Hives Surgical - Exam Vital Signs Temp Pulse Resp BP Pulse Ox 97.6 F 100 16 128/57 93 L 09/28/20 10:41 09/28/20 10:41 09/28/20 10:41 09/28/20 10:41 09/28/20 10:41 Physical exam: General: Well-developed, well-nourished HEENT: Normocephalic, sclerae nonicteric Abdomen: Nontender, nondistended Extremities: No edema Neuro: Alert and oriented Assessment and Plan (1) GERD (gastroesophageal reflux disease) Narrative/Plan: Will proceed with upper endoscopy at this time Current Visit: Yes Status: Acute Code(s): K21.9 - GASTRO-ESOPHAGEAL REFLUX DISEASE WITHOUT ESOPHAGITIS SNOMED Code(s): 502409571
--- NOTE | 2020-09-28 11:17 | P.PCN ---
Date of Procedure: 09/28/20 Procedure(s) Performed: Preoperative Dx: GERD, presurgical Postoperative Dx: Gastritis Procedure: EGD with Bx Anesthesia: Sedation Endoscopist: Dr. Stapleton Specimens: Antrum Endoscopic Procedure: The patient was on the endoscopy table in the left decubitus position. The Olympus gastroscope was inserted into the oropharynx and passed under direct visualization to the region of the third portion of the duodenum. The previous anastomosis was visualized. This was widely patent. From that point the scope was slowly withdrawn inspecting all surfaces carefully. There were no neoplastic inflammatory or polypoid lesions throughout the duodenum. The pylorus was widely patent. The stomach was carefully inspected. There was diffuse gastritis present. A biopsy of the antrum took place to rule out H. pylori. Retroflexion revealed a normal hiatus. The esophagus was then carefully examined. There were no neoplastic inflammatory or polypoid lesions throughout the visualized esophagus. The patient was then taken to the recovery room in stable condition per anesthesia guidelines. Recommendations: Await biopsy results. Continue antiacid therapy. Follow-up with [facility] for bariatric procedure.
[2020-09-28] MEDS ORDERED: HEPARIN SODIUM,PORCINE 100 UNIT/ML 5 ML VIAL IV ONE (11:49)
[2020-09-28 11:54] VITALS: BP 121/65; PULSE 79
== END 2020-09-28 11:57 | disposition home or self-care (01) ==
LOC: ORWHC2ENDO 10:01
PROVIDERS: ATTEND Surgery
DX: K29.50 Unspecified chronic gastritis without bleeding (principal); K21.9 Gastro-esophageal reflux disease without esophagitis; Z98.0 Intestinal bypass and anastomosis status; Z01.818 Encounter for other preprocedural examination; Z85.068 Personal history of other malignant neoplasm of small intestine; N90.4 Leukoplakia of vulva; G47.33 Obstructive sleep apnea (adult) (pediatric); Z99.89 Dependence on other enabling machines and devices; I12.9 Hypertensive chronic kidney disease with stage 1 through stage 4 chronic kidney disease, or unspecified chronic kidney disease; N18.30 Chronic kidney disease, stage 3 unspecified; Z95.828 Presence of other vascular implants and grafts; Z90.49 Acquired absence of other specified parts of digestive tract; F41.9 Anxiety disorder, unspecified; F32.9 Major depressive disorder, single episode, unspecified; K76.0 Fatty (change of) liver, not elsewhere classified; Z98.891 History of uterine scar from previous surgery; Z98.49 Cataract extraction status, unspecified eye; Z98.890 Other specified postprocedural states; Z92.21 Personal history of antineoplastic chemotherapy; Z82.49 Family history of ischemic heart disease and other diseases of the circulatory system; Z83.3 Family history of diabetes mellitus; Z80.0 Family history of malignant neoplasm of digestive organs; Z80.7 Family history of other malignant neoplasms of lymphoid, hematopoietic and related tissues; Z79.899 Other long term (current) drug therapy; Z88.1 Allergy status to other antibiotic agents; Z88.0 Allergy status to penicillin
CPT/HCPCS: 43239; 88305; 88342; J1642; J2001; J2704

== ENCOUNTER → 2020-10-14 | Outpatient (CLI) | payer MEDICARE, BC ==
--- NOTE | 2020-10-14 19:52 | SFUN ---
SLEEP CENTER FOLLOW UP NOTE DATE OF SERVICE: 10/14/2020 This 55-year-old lady has been followed in Sleep Center for treatment of obstructive sleep apnea-hypopnea syndrome. This is the first visit of the patient after she was started on treatment with CPAP. I explained to the patient and family results of sleep studies in detail. The patient has mild obstructive sleep apnea, which has been under full control with CPAP during titration. The patient is not experiencing significant problems with the machine, able to use it every night. According to her , sometimes she still snores while using her CPAP. Theresa Sleepiness Scale today is 1. I checked the patient's CPAP unit. Range of the pressure 4-5, usage using 30/30 nights and 29/30 nights for more than 4 hours with average usage 6.3 hours per night. Leak is only 2 L/minute. Apnea-hypopnea index is only 1.0. MEDICATIONS: Amitriptyline, Emla, famotidine, Flonase, Gleevec, Lasix, Lexapro, verapamil, Xanax, Zofran, vitamin D3. PHYSICAL EXAMINATION: GENERAL: A pleasant patient in no distress. VITAL SIGNS: BP 140/73, HR 96, RR 15, oxygen saturation at room air 91%, weight 328.6 pounds, temperature 98.2. HEENT: PERRLA, EOMI. Evaluation of oropharynx showed tongue protrudes midline. Low position of soft palate. NECK: Supple. No JVD. Thyroid is not palpable. LUNGS: Clear to percussion and to auscultation. Good air exchange. No wheezing or rhonchi. HEART: S1, S2 regular. No murmurs, gallops or rubs. ABDOMEN: Obese. EXTREMITIES: No clubbing or cyanosis. 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 Cranial nerves 2 to 7 intact. There is no fasciculation or atrophy. noted. No focal deficits observed. IMPRESSION: 1. Obstructive sleep apnea-hypopnea syndrome in mild range but with extremely high apnea-hypopnea index in REM sleep. The patient demonstrated 100% compliance with treatment, benefitting from treatment. 2. Morbid obesity. 3. History of gastrointestinal stromal tumor, status post resection of small intestine. 4. Hypertension. 5. History of anemia. 6. History of anxiety. 7. History of anorexia. 8. Status post cholecystectomy. 9. Status post several sinus surgeries. 10.Status post portal vein thrombosis. PLAN: 1. I changed regimen of the machine to the maximum pressure of 7 to prevent any snoring. 2. Patient will continue to use PAP equipment every night for the whole night. 3. Sleep hygiene with regular time in bed for at least 7-1/2 to 8 hours. 4. Precautions related to driving. No driving if feeling sleepiness. 5. I will maintain all necessary prescription for PAP supplies including mask, tube, filters. 6. Watching weight. 7. No driving if feeling sleepiness. 8. Follow-up visit in 6 months or earlier if patient has any problems. Thank you very much for allowing me to participate in the management of your patient. Sincerely, Ambrocio Bruno MD, PhD, FAASM Diplomat of [place] [employer] [place] [employer] Statistics Teacher of [facility] [place] MMODL / JONELN: [id number] /
== END | disposition home or self-care (01) ==
LOC: SLEEP 13:56
PROVIDERS: ATTEND Internal Medicine
DX: G47.33 Obstructive sleep apnea (adult) (pediatric) (principal); E66.01 Morbid (severe) obesity due to excess calories; Z87.19 Personal history of other diseases of the digestive system; I10 Essential (primary) hypertension; Z86.59 Personal history of other mental and behavioral disorders; Z90.49 Acquired absence of other specified parts of digestive tract; Z87.09 Personal history of other diseases of the respiratory system; Z86.718 Personal history of other venous thrombosis and embolism; Z99.89 Dependence on other enabling machines and devices; Z79.899 Other long term (current) drug therapy

== ENCOUNTER → 2021-03-04 | Outpatient (CLI) | payer MEDICARE, BC | END | disposition home or self-care (01) ==

== ENCOUNTER → 2021-06-22 | Outpatient (CLI) | payer MEDICARE, BC ==
--- NOTE | 2021-06-23 07:40 | NM ---
EXAMINATION TYPE: NM parathyroid w/spect DATE OF EXAM: 06/22/2021 COMPARISON: NONE HISTORY: E21.3 Hyperparathydroidism TECHNIQUE: Following administration of 24 mCi Tc99m Sestamibi. Anterior projection images of the neck and chest were obtained 10 minutes and 3 hours post injection. SPECT images of the neck and chest were obtaine d and reconstructed in three axes. FINDINGS: Thyroid tracer washout: Delayed images demonstrate near-complete tracer washout from the thyroid. Parathyroid uptake: None. The two-hour delayed images do not demonstrate any focal abnormal persisten t uptake in the region of the parathyroid glands to suggest parathyroid adenoma. Normal uptake: There is physiological tracer uptake in the myocardium, liver, salivary glands, and th yroid gland. IMPRESSION: Normal parathyroid imaging study. No evidence for mediastinal uptake to suggest mediastinal parathyro id adenoma
== END | disposition home or self-care (01) ==
LOC: RADNMMAIN 11:24
PROVIDERS: ATTEND Internal Medicine Nephrology
DX: E21.3 Hyperparathyroidism, unspecified (principal)
CPT/HCPCS: 78071; A9500

== ENCOUNTER → 2021-09-30 | Outpatient (CLI) | payer MEDICARE, BC ==
[~2021-09-30] MED LIST changes: -LACTATED RINGERS 1,000 ML IV SCH; +SODIUM CHLORIDE 0.9% 500 ML 500 ML in EMPTY BAG 1 BAG IV PRN
[2021-09-30 09:40] VITALS: BP 154/84; PULSE 99; RESP 16; TEMP 98.5
[2021-09-30 10:03] LABS: Basophils % (A) 1 %; Eosinophils # (A) 0.3 k/uL (0-0.7); Eosinophils % (A) 5 %; HCT 38.4 % (34.0-46.0); HGB 12.4 gm/dL (11.4-16.0); Lymphocytes # (A) 1.1 k/uL (1.0-4.8); Lymphocytes % (A) 21 %; MCH 32.4 pg (25.0-35.0); MCHC 32.3 g/dL (31.0-37.0); MCV 100.2 fL (80.0-100.0); Mean Platelet Volume 8.2; Monocytes # (A) 0.3 k/uL (0-1.0); Monocytes % (A) 5 %; Neutrophils # (A) 3.6 k/uL (1.3-7.7); Neutrophils % (A) 67 %; Platelet Count 236 k/uL (150-450); RBC 3.83 m/uL (3.80-5.40); RDW 13.8 % (11.5-15.5); WBC 5.4 k/uL (3.8-10.6)
[2021-09-30 10:09] LABS: Appearance,Urine Cloudy (Clear); Bacteria,Urine Rare /hpf; Bilirubin,Urine Negative (Negative); Blood,Urine Negative (Negative); Color,Urine Yellow; Glucose,Urine (UA) Negative (Negative); Ketones,Urine Negative (Negative); Leukocyte Esterase,Urine Negative (Negative); Mucus,Urine Few /hpf; Nitrite,Urine Negative (Negative); PH, Urine 5.5 (5.0-8.0); Protein,Urine Trace (Negative); Specific Gravity,Urine 1.025 (1.001-1.035); Squamous Epithelial Cell,Urine 4 /hpf (0-4); Urobilinogen,Urine <2.0 mg/dL (<2.0); WBC,Urine 2 /hpf (0-5)
[2021-09-30 10:12] LABS: Albumin 3.6 g/dL (3.5-5.0); Calcium 9.7 mg/dL (8.4-10.2); Magnesium 1.9 mg/dL (1.6-2.3); Phosphorus 2.9 mg/dL (2.5-4.5); Potassium 4.1 mmol/L (3.5-5.1); Total Bilirubin 0.6 mg/dL (0.2-1.3); Total Protein 6.9 g/dL (6.3-8.2); Uric Acid 4.9 mg/dL (3.7-7.4)
[2021-09-30 16:15] LABS: % Iron Saturation 26.24 (12.00-45.00)
== END ==
LOC: PROCWHC3 09:12
PROVIDERS: ATTEND Nurse Practitioner Family
DX: N18.30 Chronic kidney disease, stage 3 unspecified (principal); D64.9 Anemia, unspecified; N39.0 Urinary tract infection, site not specified; N25.81 Secondary hyperparathyroidism of renal origin; E55.9 Vitamin D deficiency, unspecified; M10.9 Gout, unspecified; Z88.1 Allergy status to other antibiotic agents
CPT/HCPCS: 82652; 80053; 83540; 83550; 83735; 84100; 84550; 85025; 81001; 82306; 83970; 36591; J1642

== ENCOUNTER → 2021-10-19 | Outpatient (CLI) | payer MEDICARE, BC ==
--- NOTE | 2021-10-19 16:30 | XR ---
EXAMINATION TYPE: XR chest 2V DATE OF EXAM: 10/19/2021 COMPARISON: 01/22/2013 INDICATION: Cough TECHNIQUE: Single frontal view of the chest is obtained. FINDINGS: The heart size is upper limits of normal. The pulmonary vasculature is normal. Small right pleural effusion appears to be present. Port is present on the right with the tip in the superior vena cava region. IMPRESSION: 1. There appears to be a small right subpulmonic pleural effusion. 2. No acute pulmonary process.
== END | disposition home or self-care (01) ==
LOC: RADXRMAIN 10:45
PROVIDERS: ATTEND Internal Medicine
DX: J90 Pleural effusion, not elsewhere classified (principal)
CPT/HCPCS: 71046

== ENCOUNTER → 2021-11-11 | Outpatient (CLI) | payer MEDICARE, BC ==
--- NOTE | 2021-11-15 14:46 | ECHOF ---
Referral Reason:J90 Pleural Effusion MEASUREMENTS -------- HEIGHT: 157.5 cm WEIGHT: 112.5 kg BP: RVIDd: 4.0 cm (< 3.3) IVSd: 1.4 cm (0.6 - 1.1) LVIDd: 3.8 cm (3.9 - 5.3) LVPWd: 1.4 cm (0.6 - 1.1) IVSs: 1.5 cm LVIDs: 2.1 cm LVPWs: 1.5 cm LAESV Index (A-L): 28.96 ml/m Ao Diam: 3.0 cm (2.0 - 3.7) AV Cusp: 1.8 cm (1.5 - 2.6) LA Diam: 4.7 cm (2.7 - 3.8) MV EXCURSION: 13.694 mm (> 18.000) MV EF SLOPE: 45 mm/s (70 - 150) EPSS: 0.2 cm MV E Peter: 0.54 m/s MV DecT: 176 ms MV A Peter: 0.71 m/s MV E/A Ratio: 0.77 RAP: 5.00 mmHg RVSP: 27.93 mmHg FINDINGS -------- Sinus rhythm. This was a technically adequate study. The left ventricular size is normal. There is moderate concentric left ventricular hypertrophy. O verall left ventricular systolic function is normal with, an EF between 55 - 60 %. The right ventricle is moderately enlarged. Normal LA size by volume 22+/-6 ml/m2. The right atrial size is normal. Interatrial and interventricular septum intact. There is no evidence of aortic regurgitation. There is no evidence of aortic stenosis. No mitral regurgitation. Mild tricuspid regurgitation present. There is no evidence of pulmonary hypertension. The right v entricular systolic pressure, as measured by Doppler, is 27.93mmHg. There is no pulmonic regurgitation present. The aortic root size is normal. IVC Not well visulized. There is no pericardial effusion. CONCLUSIONS -------- 1. The left ventricular size is normal. 2. There is moderate concentric left ventricular hypertrophy. 3. Overall left ventricular systolic function is normal with, an EF between 55 - 60 %. 4. The right ventricle is moderately enlarged. 5. Mild tricuspid regurgitation present. BLADE CHANGER: Yuli Casiano RDCS
== END | disposition home or self-care (01) ==
LOC: RADECHMAIN 12:07
PROVIDERS: ATTEND Internal Medicine
DX: I07.1 Rheumatic tricuspid insufficiency (principal)
CPT/HCPCS: 93306

== ENCOUNTER → 2022-01-24 | Outpatient (CLI) | payer MEDICARE, BC ==
[2022-01-24 10:36] LABS: HCT 38.1 % (34.0-46.0); HGB 12.2 gm/dL (11.4-16.0); MCH 32.2 pg (25.0-35.0); MCV 100.5 fL (80.0-100.0); Platelet Count 209 k/uL (150-450); RBC 3.79 m/uL (3.80-5.40); WBC 7.4 k/uL (3.8-10.6)
[2022-01-24 10:43] VITALS: BP 126/85; PULSE 118; RESP 16; TEMP 98
[2022-01-24 11:02] LABS: Calcium 9.2 mg/dL (8.4-10.2); Magnesium 1.9 mg/dL (1.6-2.3); Phosphorus 3.5 mg/dL (2.5-4.5); Potassium 3.9 mmol/L (3.5-5.1); Total Bilirubin 0.4 mg/dL (0.2-1.3); Total Protein 6.7 g/dL (6.3-8.2); Uric Acid 5.4 mg/dL (3.7-7.4)
[2022-01-24 19:25] LABS: % Iron Saturation 27.77 (12.00-45.00); Ferritin 83.7 ng/mL (10.0-291.0)
[2022-01-25 01:10] LABS: Appearance,Urine Cloudy (Clear); Bilirubin,Urine Negative (Negative); Blood,Urine Negative (Negative); Color,Urine Dark Yellow (Yellow); Ketones,Urine Negative (Negative); Nitrite,Urine Negative (Negative); Specific Gravity,Urine 1.025 (1.001-1.030)
[2022-01-25 01:37] LABS: Bacteria,Urine 2+ /HPF (None Seen); Calcium Oxalate Crystals,Urine Present /LPF (None Seen)
[2022-01-25 05:22] LABS: Microalbumin Creatinine Ratio <30 mg/g Creat (0-30)
== END ==
LOC: PROCWHC3 09:30
PROVIDERS: ATTEND Internal Medicine
DX: N18.2 Chronic kidney disease, stage 2 (mild) (principal); M10.9 Gout, unspecified; D64.9 Anemia, unspecified; N39.0 Urinary tract infection, site not specified; N25.81 Secondary hyperparathyroidism of renal origin; E55.9 Vitamin D deficiency, unspecified; Z88.1 Allergy status to other antibiotic agents; Z88.0 Allergy status to penicillin
CPT/HCPCS: 80053; 82728; 83540; 83550; 83735; 84100; 84550; 85027; 82306; 83970; 82043; 82570; 36591; J1642; 81001

== ENCOUNTER → 2022-06-05 | Outpatient (CLI) | payer MEDICARE, BC ==
--- NOTE | 2022-06-05 15:46 | CT ---
EXAMINATION TYPE: CT ChestAbdPelvis w con DATE OF EXAM: 06/05/2022 INDICATION: hx gastrointestinal tumor COMPARISON: 03/04/2021 CT DLP: 2068.50 mGycm CONTRAST: Performed with Oral Contrast and with IV Contrast, patient injected with 80mL mL of Isovue 370. TECHNIQUE: Axial images at 5 mm thick sections. Reconstructed images in the coronal plane. Delayed images through the kidneys. FINDINGS: CT CHEST: Portion of the thyroid visualized is normal. No suspicious lung nodules or focal infiltrates are present. No enlarged mediastinal or hilar adenopathy is evident. The ascending aorta diameter at the level of the main pulmonary artery is 3.9 cm. The main pulmonary artery diameter at the bifurcation is 2.[address] ABDOMEN: Postsurgical changes to the stomach are evident. Postsurgical changes in the region of th e duodenal jejunal junction are present. Some bowel surgery may be within small bowel loops in the an terior right upper quadrant. Liver: Normal Spleen: Normal Pancreas: Normal Adrenal glands: The adrenal glands are normal. Gallbladder: Surgically absent Kidneys: No masses are evident. No hydronephrosis is present. A 1.4 cm exophytic cyst left kidney i s present. Delayed images were obtained through the kidneys, which remain unremarkable. Aorta: Vascular calcification is within the aorta. Inferior vena cava: Normal. CT PELVIS: Loops of bowel within the abdomen and pelvis are otherwise normal. Scattered diverticuli are noted w ithin the sigmoid colon. There are loops of bowel which are incompletely distended or lack oral con trast limiting their evaluation. Appendix: Not identified. No dilated tubular structure or inflammatory changes evident. Urinary bladder: Normal. Genitourinary structures: Uterus is normal. Adnexa are normal. Osseous structures: No suspicious lytic or sclerotic lesions. Some sclerosis is along the medial righ t iliac joint space. IMPRESSIONS: 1. Postsurgical changes within the bowel within the abdomen. 2. No suspicious changes suggest recurrent or metastatic disease.
== END | disposition home or self-care (01) ==
LOC: RADPROMAIN 09:57
PROVIDERS: ATTEND Internal Medicine Hematology & Oncology
DX: D48.1 Neoplasm of uncertain behavior of connective and other soft tissue (principal)
CPT/HCPCS: 82565; 84520; 71260; 74177; 36415; J1642; Q9967

== ENCOUNTER → 2022-07-24 | Outpatient (CLI) | payer MEDICARE, BC ==
[2022-07-24 13:21] VITALS: BP 162/96; PULSE 82; RESP 16; TEMP 98.4
[2022-07-24 13:37] LABS: Basophils % (A) 0 %; Eosinophils # (A) 0.3 k/uL (0-0.7); Eosinophils % (A) 3 %; HCT 36.6 % (34.0-46.0); HGB 12.9 gm/dL (11.4-16.0); Lymphocytes # (A) 1.6 k/uL (1.0-4.8); Lymphocytes % (A) 20 %; MCHC 35.2 g/dL (31.0-37.0); MCV 96.6 fL (80.0-100.0); Mean Platelet Volume 8.3; Monocytes # (A) 0.4 k/uL (0-1.0); Monocytes % (A) 6 %; Neutrophils # (A) 5.3 k/uL (1.3-7.7); Neutrophils % (A) 69 %; Platelet Count 194 k/uL (150-450); RBC 3.79 m/uL (3.80-5.40); WBC 7.7 k/uL (3.8-10.6)
[2022-07-24 13:46] LABS: Appearance,Urine Cloudy (Clear); Bacteria,Urine Occasional /hpf; Bilirubin,Urine Negative (Negative); Blood,Urine Negative (Negative); Color,Urine Yellow; Glucose,Urine (UA) Negative (Negative); Hyaline Casts,Urine 5 /lpf (0-2); Ketones,Urine Negative (Negative); Leukocyte Esterase,Urine Negative (Negative); Mucus,Urine Many /hpf; Nitrite,Urine Negative (Negative); PH, Urine 5.5 (5.0-8.0); Protein,Urine Trace (Negative); RBC,Urine 1 /hpf (0-5); Specific Gravity,Urine 1.024 (1.001-1.035); Squamous Epithelial Cell,Urine 9 /hpf (0-4); Urobilinogen,Urine <2.0 mg/dL (<2.0); WBC,Urine 2 /hpf (0-5)
[2022-07-24 14:21] LABS: Albumin 3.9 g/dL (3.5-5.0); Calcium 8.8 mg/dL (8.4-10.2); Phosphorus 2.5 mg/dL (2.5-4.5); Potassium 3.8 mmol/L (3.5-5.1); Total Bilirubin 0.5 mg/dL (0.2-1.3); Total Protein 6.2 g/dL (6.3-8.2); Uric Acid 5.2 mg/dL (3.7-7.4)
[2022-07-24 19:39] LABS: Microalbumin Creatinine Ratio <30 mg/g Creat (0-30)
[2022-07-25 11:15] LABS: % Iron Saturation 28.02 (12.00-45.00); Ferritin 70.7 ng/mL (10.0-291.0)
== END ==
LOC: PROCWHC3 12:57
PROVIDERS: ATTEND Nurse Practitioner Family
DX: N18.2 Chronic kidney disease, stage 2 (mild) (principal); N39.0 Urinary tract infection, site not specified; N25.81 Secondary hyperparathyroidism of renal origin; E55.9 Vitamin D deficiency, unspecified; Z88.1 Allergy status to other antibiotic agents; Z88.0 Allergy status to penicillin
CPT/HCPCS: 82652; 80053; 82728; 83540; 83550; 83735; 84100; 84550; 85025; 81001; 82306; 83970; 82043; 82570; 36591; J1642

== ENCOUNTER → 2022-12-05 | Outpatient (CLI) | payer MEDICARE, BC ==
[2022-12-05 08:17] VITALS: BP 123/89; PULSE 92; RESP 17; TEMP 98.6
--- NOTE | 2022-12-05 08:53 | P.HPOB ---
History of Present Illness H&P Date: 12/05/22 Chief Complaint: The patient is here for her routine gynecologic exam and ma mmogram. This is a 57-year-old 013 with an LMP of 2011. The patient continues to use Temovate ointment as needed for lichen sclerosus. She states this has been very helpful and does not need to use it very frequently. She has noticed more itching and irritation after doing her water aerobics. She is otherwise without complaints. Review of Systems The patient has lost 24 pounds over the last year. She has been trying to lose weight and has had a bariatric surgery in 2020. She denies respiratory, cardiac, or G.I. problems. Past Medical History Past Medical History: Cancer, Hypertension, Renal Disease, Sleep Apnea/CPAP/BIPAP Additional Past Medical History / Comment(s): GIST gastrointestinal cancer, liver abscess, thrombosis liver portal vein, uses C- Pap Machine., kidney disease stage 3., pt has port a cath. 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 She has lichen sclerosis of the vulva confirmed by biopsy in 2018. History of Any Multi-Drug Resistant Organisms: None Reported Past Surgical History: Bariatric Surgery, Cholecystectomy Additional Past Surgical History / Comment(s): bowel [id number], csection, sinus surgery, cataract surgery, d&C, breast biopsy, port placement. Gastric sleeve bariatric surgery 11/24/2020. COLONSCOPY AUGUST 2022(next after 2yr) Past Anesthesia/Blood Transfusion Reactions: No Reported Reaction, Motion Sickness Additional Past Anesthesia/Blood Transfusion Reaction / Comment(s): usuallly gets a "patch" Past Psychological History: Anxiety, Depression Smoking Status: Never smoker Past Alcohol Use History: Rare (4-5 per year.) Additional Past Alcohol Use History / Comment(s): Previously rarely used alcohol, but now not using any alcohol after bariatric surgery. Past Drug Use History: None Reported Additional History: She has been since 1984 and is disabled. - Past Family History Father Family Medical History: Hypertension Additional Family Medical History / Comment(s): of aneursym Mother Family Medical History: Coronary Artery Disease (CAD), Diabetes Mellitus Additional Family Medical History / Comment(s): Maternal grandmother had oral cancer. One cousin had lymphoma and another cousin had colon cancer. Medications and Allergies Home Medications Medication Instructions Recorded Confirmed Type ALPRAZolam [Xanax] 0.5 mg PO BID PRN 02/05/19 12/05/22 History Acetaminophen [Tylenol] 325 mg PO Q6H PRN 02/05/19 12/05/22 History Amitriptyline HCl 50 mg PO HS 02/05/19 12/05/22 History Cholecalciferol (Vitamin D3) 3,000 unit PO DAILY 02/05/19 12/05/22 History [Vitamin D3] Furosemide [Lasix] 40 mg PO DAILY PRN 02/05/19 12/05/22 History Imatinib Mesylate [Gleevec] 400 mg PO HS 02/05/19 12/05/22 History Escitalopram [Lexapro] 20 mg PO DAILY 02/07/19 12/05/22 History Fexofenadine HCl [Veronica Allergy] 180 tab PO DAILY PRN 06/25/19 12/05/22 History Ibuprofen [Motrin] 800 mg PO DIRECTED PRN 06/25/19 12/05/22 History Multivit-Min/Iron/Folic/Lutein 1 each PO DAILY 08/18/20 12/05/22 History [Centrum Silver Women Tablet] [place] Tail 1 tab PO DAILY 08/18/20 12/05/22 History Omeprazole [PriLOSEC] 40 mg PO DAILY 09/23/20 12/05/22 History Clobetasol Propionate [Temovate 1 applic TOPICAL BID PRN #30 gm 10/11/21 3 Rx 0.05% Oint] Cyanocobalamin [Vitamin B-12 1 dispenser INJ WEEKLY 10/11/21 12/05/22 History Injection] calcitrioL [Calcitriol] 0.25 mcg PO DAILY 12/05/22 12/05/22 History Allergies Allergy/AdvReac Type Severity Reaction Status Date / Time ampicillin Allergy Throat/Tongue Verified 12/05/22 08:04 Swelling, Hives cephalexin monohydrate Allergy Throat/Tongue Verified 12/05/22 08:04 [From Keflex] Swelling, Hives erythromycin base Allergy Throat/Tongue Verified 12/05/22 08:04 [Erythromycin Base] Swelling, Hives Penicillins Allergy Throat/Tongue Verified 12/05/22 08:04 Swelling, Hives tetracycline [Tetracycline] Allergy Throat/Tongue Verified 12/05/22 08:04 Swelling, Hives Exam Vital Signs Temp Pulse Resp BP Pulse Ox 12/05/22 08:13 98.6 F 92 17 123/89 100 Intake and Output 12/04/22 12/05/22 12/05/22 22:59 06:59 14:59 Other: Weight 103.419 kg Height 5 feet 2 inches, weight 228 pounds, BMI 41.7. This is a well-developed well-nourished heavyset white female who is alert and oriented times 3 in no acute distress. HEENT: Within normal limits. NECK: Supple without mass or thyromegaly. CHEST AND LUNGS: Clear to auscultation. HEART: Regular rate and rhythm. BREASTS: Are without mass or discharge. AXILLARY EXAM: Negative for adenopathy. BACK: Negative for CVA tenderness. ABDOMEN: Soft, nontender, without palpable masses. PELVIC EXAM: External genitalia reveals mild atrophy with generalized vulvar pallor which is well demarcated and consistent with lichen sclerosus of the vulva. There are no focal lesions. Cervix and vagina appear normal with mild atrophy. There is no unusual discharge. There is no evidence of prolapse. The uterus is midposition, nongravid size and nontender. There are no palpable adnexal masses or tenderness. RECTAL EXAM: Rectovaginal exam is negative for mass or tenderness and is negative for occult blood. EXTREMITIES: Nontender. IMPRESSION: 1. 57-year-old menopausal female with lichen sclerosus of the vulva which is symptomatically controlled with Temovate ointment as needed. 2. Continued weight loss following her bariatric surgery that was done in 2020. PLAN: 1. Pap smear was deferred since she had a negative Pap smear cotest on 10/11/2021. 2. Self breast awareness was discussed with the patient. We have also discussed symptoms associated with inflammatory breast cancer. 3. Screening mammogram will be done today. 4. Osteoporosis prevention was discussed. I have stressed the importance of adequate calcium, vitamin D and regular exercise. Recommended amounts of calcium and vitamin D were also discussed. Baseline bone density test will be done today. 5. She will continue to use Temovate 0.05% ointment twice a day as needed for vulvar irritation. I recommended that she use petroleum jelly as a protective layer on the days she does not use the Temovate ointment and she can also use this before doing her water aerobics since it seems to get irritated more after being in the pool. 6. She was advised to return in one year for her annual well woman exam.
--- NOTE | 2022-12-05 12:46 | MM ---
Reason for Exam: Screening (asymptomatic). Last mammogram was performed 1 year(s) and 2 month(s) ago. Patient History: Menarche at age 9. First Full-Term at age 21. Postmenopausal. Other cancer, age 48. Patient used Hormonal Contraceptives for 1 year. 02/12/2007, Excisional Biopsy on the Right side. 08/24/1999, Benign Excisional Biopsy on the right side. Risk Values: Veronica 5 year model risk: 2.0%. NCI Lifetime model risk: 11.1%. Prior Study Comparison: 06/25/2019 Bilateral Screening Mammogram, [facility]. 08/18/2020 Bilateral Screening Mammogram, [facility]. 10/11/2021 Bilateral Screening Mammogram, [facility]. Tissue Density: There are scattered fibroglandular densities. Findings: Analyzed By CAD. There is no suspicious group of microcalcifications or new suspicious mass in either breast. Overall Assessment: Negative, BI-RAD 1 Management: Screening Mammogram of both breasts in 1 year. A clinical breast exam by your physician is recommended on an annual basis and results should be correlated with mammographic findings. [facility] will attempt to contact patient to return for supplemental views and ultrasound if indicated. Electronically signed and approved by: Lane Lloyd DO
--- NOTE | 2022-12-06 10:22 | P.PN ---
Progress Note - Text Progress Note Date: 12/06/22 OUTPATIENT FOLLOW-UP NOTE TEST(S)/RESULTS: Test results from 12/05/2022 include benign mammogram and bone density test showing osteopenia. METHOD OF NOTIFICATION: A message with these results was left on the patient's voice mail on 12/06/2022. PATIENT COMMENTS: DIAGNOSIS: Benign mammogram and osteopenia. DISCUSSION: On the message I have stressed the importance of adequate calcium, vitamin D, and regular exercise. We will plan on repeating the bone density test in approximately 3 years. PLAN: Above. She was advised to return in one year for her annual well woman exam.
== END ==
LOC: WWCWWP 07:49
PROVIDERS: ATTEND Obstetrics & Gynecology
DX: Z12.31 Encounter for screening mammogram for malignant neoplasm of breast (principal); Z01.419 Encounter for gynecological examination (general) (routine) without abnormal findings; F32.A Depression, unspecified; F41.9 Anxiety disorder, unspecified; G47.30 Sleep apnea, unspecified; I10 Essential (primary) hypertension; L90.0 Lichen sclerosus et atrophicus; Z68.41 Body mass index [BMI] 40.0-44.9, adult; Z78.0 Asymptomatic menopausal state; Z79.1 Long term (current) use of non-steroidal anti-inflammatories (NSAID); Z82.49 Family history of ischemic heart disease and other diseases of the circulatory system; Z83.3 Family history of diabetes mellitus; Z88.0 Allergy status to penicillin; Z88.1 Allergy status to other antibiotic agents; Z90.49 Acquired absence of other specified parts of digestive tract; Z88.6 Allergy status to analgesic agent; Z98.84 Bariatric surgery status
CPT/HCPCS: 77063; 77067

== ENCOUNTER → 2022-12-05 | Outpatient (CLI) | payer MEDICARE, BC ==
--- NOTE | 2022-12-05 11:14 | BD ---
EXAMINATION TYPE: Axial Bone Density DATE OF EXAM: 12/05/2022 CLINICAL HISTORY: 57 years old Female. ICD-10 CODE: Z780 POST GHADA WITHOUT HRT Height: 5'2 Weight: 245 FRAX RISK QUESTIONS: History of Fracture in Adulthood: y Secondary Osteoporosis: 4. Malnutrition: y 5. Chronic liver disease: y RISK FACTORS HISTORY OF: Postmenopausal woman: y MEDICATIONS: Additional Medications: anxiety, bariatric surgery, allergies, vitamin d3,Lasix, oral chemo , vitamin b12 Additional History: bariatric surgery 2020, gastro intestinal cancer,2012,oral chemo 2012 EXAM MEASUREMENTS: Bone mineral densitometry was performed using the [employer]. Bone mineral density as measured about the Lumbar spine is: ----- L1-L4(G/cm2): 1.020 T Score Values are as follows: ----- L1:-1.0 ----- L2:-1.5 ----- L3: -1.2 ----- L4: -1.7 ----- L1-L4: -1.3 Z Score Values are as follows: ----- L1:-1.1 ----- L2: -1.6 ----- L3: -1.3 ----- L4: -1.8 ----- L1-L4: -1.4 Bone mineral density about the R hip (g/cm2): 1.028 Bone mineral density about the L hip (g/cm2): 1.100 T Score values are as follows: -----R Neck: -0.9 -----L Neck: -1.1 -----R Total: 0.2 -----L Total:0.7 Z Score values are as follows: -----R Neck: -0.7 -----L Neck: -0.5 -----R Total: 0.2 -----L Total: 0.7 FRAX: The graph provided illustrates a 10.2% chance for a major osteoporotic fx and a 0.6 % chance fo r the hips probability for fx in 10 years time. IMPRESSION: Osteopenia (T Score between -2.5 and -1). There is slightly increased risk of fracture and the patient may be considered for treatment. Re-Screen 2-5 years. NOTE: T-SCORE=SD OF THE YOUNG ADULT MEAN.
== END | disposition home or self-care (01) ==
LOC: RADBDWWP 07:51
PROVIDERS: ATTEND Internal Medicine
DX: M85.89 Other specified disorders of bone density and structure, multiple sites (principal); Z78.0 Asymptomatic menopausal state
CPT/HCPCS: 77080

== ENCOUNTER → 2023-03-02 | Outpatient (CLI) | payer MEDICARE, BC ==
[2023-03-02 10:09] VITALS: BP 150/71; PULSE 76; RESP 16; TEMP 97.2
[2023-03-02 10:30] LABS: ALT 21 U/L (4-34); AST 25 U/L (14-36); African American GFR (CKD) 69 (>60 ml/min/1.73 sqM); Albumin 3.6 g/dL (3.5-5.0); Alkaline Phosphatase 92 U/L (38-126); Anion Gap 6 mmol/L; Blood Urea Nitrogen 14 mg/dL (7-17); Calcium 9.2 mg/dL (8.4-10.2); Carbon Dioxide 27 mmol/L (22-30); Chloride 106 mmol/L (98-107); Glucose 111 mg/dL (74-99); Non-African American GFR(CKD) 60 (>60 ml/min/1.73 sqM); Potassium 4.3 mmol/L (3.5-5.1); Sodium 139 mmol/L (137-145); Total Bilirubin 0.5 mg/dL (0.2-1.3); Total Protein 6.3 g/dL (6.3-8.2)
== END ==
LOC: PROCWHC3 09:46
PROVIDERS: ATTEND Nurse Practitioner Family
DX: N18.2 Chronic kidney disease, stage 2 (mild) (principal); N25.81 Secondary hyperparathyroidism of renal origin
CPT/HCPCS: 80053; 83970; 36591; J1642

== ENCOUNTER → 2024-01-30 | Outpatient (CLI) | payer MEDICARE, BC ==
[2024-01-30 10:01] VITALS: BP 111/83; PULSE 90; RESP 16; TEMP 98.4
--- NOTE | 2024-01-30 10:41 | P.HPOB ---
History of Present Illness H&P Date: 01/30/24 Chief Complaint: The patient is here for her routine gynecologic exam and ma mmogram. This is a 58-year-old -0-1-3 with an LMP of 2011. The patient continues to use the Temovate ointment as needed for lichen sclerosus symptoms. She has used it typically about once a week. She also uses A&E ointment as needed as a protective layer. She tends to have more symptoms near the outer aspect of the labia majora at the crease between the labia and her leg. She is otherwise without gynecologic complaints and denies any postmenopausal bleeding. Review of Systems The patient has gained 34 pounds over the last year. She denies respiratory, ca rdiac, or G.I. problems. Past Medical History Past Medical History: Cancer, Hypertension, Renal Disease, Sleep Apnea/CPAP/BIPAP Additional Past Medical History / Comment(s): GIST gastrointestinal cancer, liver abscess, thrombosis liver portal vein, uses C- Pap Machine., kidney disease stage 3., pt has port a cath. 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 She has lichen sclerosis of the vulva confirmed by biopsy in 2019. History of Any Multi-Drug Resistant Organisms: None Reported Past Surgical History: Bariatric Surgery, Cholecystectomy Additional Past Surgical History / Comment(s): bowel [id number], csection, sinus surgery, cataract surgery, d&C, breast biopsy, port placement. Gastric sleeve bariatric surgery 11/24/2020. Colonoscopy 2022(next after 3yr) Past Anesthesia/Blood Transfusion Reactions: No Reported Reaction, Motion Sickness Additional Past Anesthesia/Blood Transfusion Reaction / Comment(s): usuallly gets a "patch" Past Psychological History: Anxiety, Depression Smoking Status: Never smoker Past Alcohol Use History: Rare (Less than 15/year.) Additional Past Alcohol Use History / Comment(s): Previously rarely used alcohol, but now not using any alcohol after bariatric surgery. Past Drug Use History: None Reported Additional History: She has been since 1984 and is disabled. - Past Family History Father Family Medical History: Hypertension Additional Family Medical History / Comment(s): of aneursym Mother Family Medical History: Coronary Artery Disease (CAD), Diabetes Mellitus Additional Family Medical History / Comment(s): Maternal grandmother had oral cancer. One cousin had lymphoma and another cousin had colon cancer. Medications and Allergies Home Medications Medication Instructions Recorded Confirmed Type ALPRAZolam [Xanax] 0.5 mg PO BID PRN 02/05/19 01/30/24 History Acetaminophen [Tylenol] 325 mg PO Q6H PRN 02/05/19 01/30/24 History Amitriptyline HCl 50 mg PO HS 02/05/19 01/30/24 History Furosemide [Lasix] 40 mg PO DAILY PRN 02/05/19 01/30/24 History Imatinib Mesylate [Gleevec] 400 mg PO HS 02/05/19 01/30/24 History Escitalopram [Lexapro] 20 mg PO DAILY 02/07/19 01/30/24 History Fexofenadine HCl [Veronica Allergy] 180 tab PO DAILY PRN 06/25/19 01/30/24 History Ibuprofen [Motrin] 800 mg PO DIRECTED PRN 06/25/19 01/30/24 History Multivit-Min/Iron/Folic/Lutein 1 each PO DAILY 08/18/20 01/30/24 History [Centrum Silver Women Tablet] [place] Tail 1 tab PO DAILY 08/18/20 01/30/24 History Omeprazole [PriLOSEC] 40 mg PO DAILY 09/23/20 01/30/24 History Cyanocobalamin [Vitamin B-12 1 dispenser INJ WEEKLY 10/11/21 01/30/24 History Injection] Clobetasol Propionate [Temovate 1 applic TOPICAL BID PRN #30 gm 12/05/22 01/30/24 Rx 0.05% Oint] Allergies Allergy/AdvReac Type Severity Reaction Status Date / Time ampicillin Allergy Throat/Tongue Verified 01/30/24 09:58 Swelling, Hives cephalexin monohydrate Allergy Throat/Tongue Verified 01/30/24 09:58 [From Keflex] Swelling, Hives erythromycin base Allergy Throat/Tongue Verified 01/30/24 09:58 [Erythromycin Base] Swelling, Hives Penicillins Allergy Throat/Tongue Verified 01/30/24 09:58 Swelling, Hives tetracycline [Tetracycline] Allergy Throat/Tongue Verified 01/30/24 09:58 Swelling, Hives Exam Vital Signs Temp Pulse Resp BP Pulse Ox 01/30/24 09:59 98.4 F 90 16 111/83 98 Intake and Output 01/29/24 01/30/24 01/30/24 22:59 06:59 14:59 Other: Weight 118.841 kg Height 5 feet 2 inches, weight 262 pounds, BMI 47.9 This is a well-developed well-nourished heavyset white female who is alert and oriented times 3 in no acute distress. HEENT: Within normal limits. NECK: Supple without mass or thyromegaly. CHEST AND LUNGS: Clear to auscultation. HEART: Regular rate and rhythm. BREASTS: Are without mass or discharge. AXILLARY EXAM: Negative for adenopathy. BACK: Negative for CVA tenderness. ABDOMEN: Soft, nontender, without palpable masses. PELVIC EXAM: External genitalia reveals mild generalized pallor of the labia bilaterally. There is also some pallor slight excoriation in the right crease lateral to the right labia majora. There is a small amount of erythema that extends to the perineum and perianal areas consistent with lichen sclerosus. The cervix and vagina appear normal with mild atrophy. There is no unusual discharge. There is no evidence of prolapse. The uterus is midposition, nongravid size and nontender. There are no palpable adnexal masses or tenderness. Bimanual examination is somewhat limited secondary to her size. RECTAL EXAM: Rectovaginal exam is negative for mass or tenderness and is negative for occult blood. EXTREMITIES: Nontender. IMPRESSION: 1. 58-year-old menopausal female with lichen sclerosus of the vulva which is symptomatically controlled with Temovate ointment as needed. 2. Obesity. PLAN: 1. Pap smear was deferred since she had a negative Pap smear cotest on 10/11/2021 2. Self breast awareness was discussed with the patient. We have also discussed symptoms associated with inflammatory breast cancer. 3. Screening mammogram will be done today. 4. Osteoporosis prevention was discussed. 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 5. Continue Temovate ointment as needed. She was instructed to use it when she is feeling the irritation and not to wait until the irritation is very bad. She will continue to use the A&E ointment as a protective layer on the days she is not using the Temovate ointment. She finds this helpful especially when she goes into a pool to swim or for water exercise. The electronic prescription for the Temovate ointment will be sent to [facility] pharmacy in [place]. 6. She was advised to return in one year for her annual well woman exam and as needed.
--- NOTE | 2024-01-31 13:08 | MM ---
Reason for Exam: Screening (asymptomatic). Last mammogram was performed 1 year(s) and 2 month(s) ago. Patient History: Menarche at age 9. First Full-Term at age 21. Postmenopausal. Patient has history of breast feeding. Other cancer, age 48. Patient used Hormonal Contraceptives for 1 year. 02/12/2007, Excisional Biopsy on the Right side. 08/24/1999, Benign Excisional Biopsy on the right side. Risk Values: Veronica 5 year model risk: 2.0%. NCI Lifetime model risk: 10.9%. Prior Study Comparison: 09/13/2016 Bilateral Screening Mammogram, [facility]. 12/07/2017 Bilateral Screening Mammogram, [facility]. 06/25/2019 Bilateral Screening Mammogram, [facility]. 08/18/2020 Bilateral Screening Mammogram, [facility]. 10/11/2021 Bilateral Screening Mammogram, [facility]. 12/05/2022 Bilateral MG 3D screening mammo w/cad, [facility]. Tissue Density: There are scattered areas of fibroglandular density. Findings: Analyzed By CAD. Right breast: There is no suspicious group of microcalcifications or new suspicious mass. Left breast: There is no suspicious group of microcalcifications or new suspicious mass. Overall Assessment: Negative, BI-RAD 1 Management: Screening Mammogram of both breasts in [address] [facility] will attempt to contact patient to return for supplemental views and ultrasound if indicated. Patient should continue monthly self-breast exams. A clinical breast exam by your physician is recommended on an annual basis. This exam should not preclude additional follow-up of suspicious palpable abnormalities. Note on Veronica scores and lifetime risk: 1. A Veronica score greater than 3% is considered moderate risk. If this is the case, consider specialist referral to assess eligibility for a risk reducing agent. 2. If overall lifetime risk for the development of breast cancer is 20% or higher, the patient may qualify for future screening with alternating mammogram and breast MRI. Electronically signed and approved by: Lane Lloyd DO
== END ==
LOC: WWCWWP 09:30
PROVIDERS: ATTEND Obstetrics & Gynecology
DX: Z12.31 Encounter for screening mammogram for malignant neoplasm of breast (principal); R92.323 Mammographic fibroglandular density, bilateral breasts; N90.4 Leukoplakia of vulva; E66.9 Obesity, unspecified; Z78.0 Asymptomatic menopausal state; Z68.42 Body mass index [BMI] 45.0-49.9, adult; Z88.1 Allergy status to other antibiotic agents; Z88.0 Allergy status to penicillin
CPT/HCPCS: 77063; 77067

== ENCOUNTER → 2024-03-12 | Outpatient (CLI) | payer MEDICARE, BC ==
[2024-03-12 13:30] VITALS: BP 145/84; PULSE 69; RESP 16; TEMP 98.5
[2024-03-12 13:54] LABS: Basophils # (A) 0.1 k/uL (0-0.2); Basophils % (A) 1 %; Eosinophils # (A) 0.4 k/uL (0-0.7); Eosinophils % (A) 4 %; HCT 39.3 % (34.0-46.0); HGB 13.2 gm/dL (11.4-16.0); Lymphocytes # (A) 1.7 k/uL (1.0-4.8); Lymphocytes % (A) 15 %; MCH 33.7 pg (25.0-35.0); MCHC 33.5 g/dL (31.0-37.0); MCV 100.5 fL (80.0-100.0); Mean Platelet Volume 8.2; Monocytes # (A) 0.7 k/uL (0-1.0); Monocytes % (A) 6 %; Neutrophils # (A) 8.4 k/uL (1.3-7.7); Neutrophils % (A) 74 %; Platelet Count 224 k/uL (150-450); RBC 3.91 m/uL (3.80-5.40); RDW 13.1 % (11.5-15.5); WBC 11.3 k/uL (3.8-10.6)
[2024-03-12 14:01] LABS: Appearance,Urine Cloudy (Clear); Bacteria,Urine Few /hpf; Bilirubin,Urine Negative (Negative); Blood,Urine Negative (Negative); Color,Urine Yellow; Glucose,Urine (UA) Negative (Negative); Hyaline Casts,Urine 1 /lpf (0-2); Ketones,Urine Negative (Negative); Leukocyte Esterase,Urine Small (Negative); Mucus,Urine Rare /hpf; Nitrite,Urine Negative (Negative); Protein,Urine Trace (Negative); RBC,Urine 1 /hpf (0-5); Specific Gravity,Urine 1.022 (1.001-1.035); Squamous Epithelial Cell,Urine 6 /hpf (0-4); Urobilinogen,Urine <2.0 mg/dL (<2.0); WBC,Urine 5 /hpf (0-5)
[2024-03-12 14:09] LABS: ALT 20 U/L (4-34); AST 25 U/L (14-36); African American GFR (CKD) 72 (>60 ml/min/1.73 sqM); Albumin 4.1 g/dL (3.5-5.0); Alkaline Phosphatase 87 U/L (38-126); Anion Gap 6 mmol/L; Blood Urea Nitrogen 21 mg/dL (7-17); Calcium 9.4 mg/dL (8.4-10.2); Carbon Dioxide 26 mmol/L (22-30); Chloride 107 mmol/L (98-107); Glucose 117 mg/dL (74-99); Magnesium 1.8 mg/dL (1.6-2.3); Non-African American GFR(CKD) 62 (>60 ml/min/1.73 sqM); Phosphorus 3.1 mg/dL (2.5-4.5); Potassium 4.1 mmol/L (3.5-5.1); Sodium 139 mmol/L (137-145); Total Bilirubin 0.5 mg/dL (0.2-1.3); Total Protein 6.7 g/dL (6.3-8.2)
[2024-03-12 21:37] LABS: Microalbumin Creatinine Ratio <8 mg/g Cr (0-30)
[2024-03-13 00:33] LABS: % Iron Saturation 27.03 (12.00-45.00); Ferritin 62.2 ng/mL (10.0-291.0); Iron 100 UG/DL (50-170); Total Iron Binding Capacity 370 UG/DL (228-460)
== END ==
LOC: PROCWHC3 13:12
PROVIDERS: ATTEND Nurse Practitioner Family
DX: N18.2 Chronic kidney disease, stage 2 (mild) (principal); D63.1 Anemia in chronic kidney disease; N25.81 Secondary hyperparathyroidism of renal origin; N39.0 Urinary tract infection, site not specified; R80.9 Proteinuria, unspecified; M10.9 Gout, unspecified
CPT/HCPCS: 80053; 82728; 83540; 83550; 83735; 84100; 84550; 85025; 81001; 83970; 82043; 82570; 86335; 83883; 36591; J1642

== ENCOUNTER → 2024-07-15 | Outpatient (CLI) | payer MEDICARE, BC ==
--- NOTE | 2024-07-15 12:34 | US ---
EXAMINATION TYPE: US kidneys/renal and bladder DATE OF EXAM: 07/15/2024 COMPARISON: CT 2021, US 2019 CLINICAL INDICATION: Female, 59 years old with history of N18.2 CHRONIC KIDNEY DISEASE, STAGE 2 (MILD ); TECHNIQUE: Grayscale imaging of the bilateral kidneys and urinary bladder: FINDINGS: EXAM MEASUREMENTS: Right Kidney: 8.7 x 4.7 x 4.4 cm Left Kidney: 9.3 x 5.1 x 5.9 cm Difficult and limited study due to patient body habitus Right Kidney: small in size Left Kidney: 1.8cm cystic area superior pole Bladder: not fully distended There is no evidence for hydronephrosis at this point in time. No nephrolithiasis is seen. No kinjal s are identified. The urinary bladder is anechoic. IMPRESSION: 1. No evidence for obstructive uropathy or renal calculus. 2. Simple appearing left renal cyst. [facility], , 07/15/2024 12:32 PM
== END | disposition home or self-care (01) ==
LOC: RADUSWWP 10:32
PROVIDERS: ATTEND Internal Medicine
DX: N18.2 Chronic kidney disease, stage 2 (mild) (principal); N28.1 Cyst of kidney, acquired
CPT/HCPCS: 76770

== ENCOUNTER → 2024-07-15 | Outpatient (CLI) | payer MEDICARE, BC ==
[~2024-07-15] MED LIST changes: +SODIUM CHLORIDE 0.9% 250 ML in EMPTY BAG 1 BAG IV PRN
[2024-07-15 11:21] VITALS: BP 133/89; PULSE 99; RESP 16; TEMP 97.7
[2024-07-15 11:49] LABS: Basophils # (A) 0.1 k/uL (0-0.2); Basophils % (A) 1 %; Eosinophils # (A) 0.4 k/uL (0-0.7); Eosinophils % (A) 4 %; HCT 39.7 % (34.0-46.0); HGB 13.1 gm/dL (11.4-16.0); Lymphocytes # (A) 1.8 k/uL (1.0-4.8); Lymphocytes % (A) 21 %; MCH 32.7 pg (25.0-35.0); MCV 99.3 fL (80.0-100.0); Mean Platelet Volume 8.1; Monocytes # (A) 0.4 k/uL (0-1.0); Monocytes % (A) 5 %; Neutrophils # (A) 5.9 k/uL (1.3-7.7); Neutrophils % (A) 68 %; Platelet Count 244 k/uL (150-450); RDW 13.1 % (11.5-15.5); WBC 8.6 k/uL (3.8-10.6)
[2024-07-15 12:02] LABS: Phosphorus 2.6 mg/dL (2.5-4.5); Uric Acid 5.8 mg/dL (3.7-7.4)
[2024-07-15 12:03] LABS: ALT 21 U/L (4-34); AST 25 U/L (14-36); African American GFR (CKD) 57 (>60 ml/min/1.73 sqM); Albumin 3.9 g/dL (3.5-5.0); Alkaline Phosphatase 110 U/L (38-126); Anion Gap 5 mmol/L; Blood Urea Nitrogen 16 mg/dL (7-17); Calcium 9.5 mg/dL (8.4-10.2); Carbon Dioxide 26 mmol/L (22-30); Chloride 103 mmol/L (98-107); Glucose 107 mg/dL (74-99); Non-African American GFR(CKD) 50 (>60 ml/min/1.73 sqM); Potassium 4.2 mmol/L (3.5-5.1); Sodium 134 mmol/L (137-145); Total Bilirubin 0.7 mg/dL (0.2-1.3); Total Protein 6.7 g/dL (6.3-8.2)
[2024-07-15 15:30] LABS: % Iron Saturation 39.64 (12.00-45.00); Ferritin 70.5 ng/mL (10.0-291.0); Iron 153 UG/DL (50-170); Total Iron Binding Capacity 386 UG/DL (228-460)
== END ==
LOC: PROCWHC3 11:08
PROVIDERS: ATTEND Internal Medicine
DX: N18.2 Chronic kidney disease, stage 2 (mild) (principal); D63.1 Anemia in chronic kidney disease; E55.9 Vitamin D deficiency, unspecified; N25.81 Secondary hyperparathyroidism of renal origin; M10.9 Gout, unspecified
CPT/HCPCS: 80053; 82728; 83540; 83550; 84100; 84550; 85025; 82306; 83970; 36591; J1642

== ENCOUNTER 2024-11-11 08:46 | Outpatient (CLI) | payer MEDICARE, BC ==
[2024-11-11 09:21] VITALS: BP 153/87; PULSE 86; RESP 16; TEMP 98
[2024-11-11 09:31] LABS: Basophils % (A) 1 %; Eosinophils # (A) 0.3 k/uL (0-0.7); Eosinophils % (A) 6 %; HCT 37.8 % (34.0-46.0); Lymphocytes # (A) 1.3 k/uL (1.0-4.8); Lymphocytes % (A) 24 %; MCH 32.5 pg (25.0-35.0); MCHC 31.8 g/dL (31.0-37.0); MCV 102.4 fL (80.0-100.0); Macrocytosis Slight; Mean Platelet Volume 8.1; Monocytes # (A) 0.3 k/uL (0-1.0); Monocytes % (A) 6 %; Neutrophils # (A) 3.4 k/uL (1.3-7.7); Neutrophils % (A) 62 %; Platelet Count 186 k/uL (150-450); RBC 3.69 m/uL (3.80-5.40); RDW 13.3 % (11.5-15.5); WBC 5.5 k/uL (3.8-10.6)
[2024-11-11 09:43] LABS: Phosphorus 3.4 mg/dL (2.5-4.5)
[2024-11-11 09:44] LABS: ALT 31 U/L (4-34); AST 26 U/L (14-36); African American GFR (CKD) 63 (>60 ml/min/1.73 sqM); Albumin 3.8 g/dL (3.5-5.0); Alkaline Phosphatase 101 U/L (38-126); Anion Gap 8 mmol/L; Blood Urea Nitrogen 22 mg/dL (7-17); Calcium 9.5 mg/dL (8.4-10.2); Carbon Dioxide 28 mmol/L (22-30); Chloride 102 mmol/L (98-107); Glucose 111 mg/dL (74-99); Non-African American GFR(CKD) 54 (>60 ml/min/1.73 sqM); Sodium 138 mmol/L (137-145); Total Bilirubin 0.6 mg/dL (0.2-1.3); Total Protein 6.4 g/dL (6.3-8.2)
[2024-11-11 10:05] LABS: Appearance,Urine Cloudy (Clear); Bilirubin,Urine Negative (Negative); Blood,Urine Negative (Negative); Color,Urine Yellow; Glucose,Urine (UA) Negative (Negative); Ketones,Urine Negative (Negative); Leukocyte Esterase,Urine Negative (Negative); Mucus,Urine Rare /hpf; Nitrite,Urine Negative (Negative); PH, Urine 5.5 (5.0-8.0); Protein,Urine Trace (Negative); RBC,Urine 1 /hpf (0-5); Specific Gravity,Urine 1.026 (1.001-1.035); Squamous Epithelial Cell,Urine 2 /hpf (0-4); Urobilinogen,Urine <2.0 mg/dL (<2.0); WBC,Urine 2 /hpf (0-5)
[2024-11-11 16:00] LABS: % Iron Saturation 26.43 (12.00-45.00); Iron 97 UG/DL (50-170); Total Iron Binding Capacity 367 UG/DL (228-460)
[2024-11-11 17:46] LABS: Microalbumin Creatinine Ratio <8 mg/g Cr (0-30)
== END 2024-11-11 13:49 | disposition home or self-care (01) ==
LOC: PROCWHC3 08:46
PROVIDERS: ATTEND Internal Medicine
DX: N18.2 Chronic kidney disease, stage 2 (mild) (principal); D63.1 Anemia in chronic kidney disease; N39.0 Urinary tract infection, site not specified; E55.9 Vitamin D deficiency, unspecified; N25.81 Secondary hyperparathyroidism of renal origin; M10.9 Gout, unspecified; R80.9 Proteinuria, unspecified
CPT/HCPCS: 80053; 83540; 83550; 84100; 84550; 85025; 81001; 82306; 83970; 82043; 82570; 36591; J1642

== ENCOUNTER → 2024-12-19 | Outpatient (CLI) | payer MEDICARE, BC ==
--- NOTE | 2024-12-19 11:44 | XR ---
EXAMINATION TYPE: XR chest 2V DATE OF EXAM: 12/19/2024 11:37 AM COMPARISON: Chest radiographs from 10/19/2021, CT chest abdomen and pelvis 06/05/2022 TECHNIQUE: XR chest 2V Frontal and lateral views of the chest. CLINICAL INDICATION:Female, 59 years old with history of R06.89 OTHER ABNORMALITIES OF BREATHING; FINDINGS: Lungs/Pleura: There is no evidence of pleural effusion, focal consolidation, or pneumothorax. Chroni c elevation of the right hemidiaphragm. Pulmonary vascularity: Unremarkable. Heart/mediastinum: Cardiomediastinal silhouette is enlarged and stable. Musculoskeletal: No acute osseous pathology. Other findings: None Lines/Tubes: Stable right chest IJ Mediport catheter with distal tip terminating at the superior cavoatrial juncti on. IMPRESSION: Chronic changes without acute pulmonary process. No significant change from prior. [facility], , 12/19/2024 11:41 AM
== END | disposition home or self-care (01) ==
LOC: RADXRMAIN 11:16
PROVIDERS: ATTEND Internal Medicine
DX: R06.89 Other abnormalities of breathing (principal)
CPT/HCPCS: 71046

== ENCOUNTER → 2025-02-17 | Outpatient (CLI) | payer MEDICARE, BC ==
[2025-02-17 12:02] VITALS: BP 144/79; PULSE 110; RESP 16; TEMP 98.9
--- NOTE | 2025-02-17 12:23 | P.HPOB ---
History of Present Illness H&P Date: 02/17/25 Chief Complaint: The patient is here for her routine gynecologic exam and ma mmogram. This is a 67-year-old -0-1-3 with an LMP of 2011. The patient has a known history of lichen sclerosus of the vulva. She states it is fairly well- controlled with Temovate ointment which she uses infrequently as needed. She states that there are times when she wears tight pants that it feels more irritated. She is otherwise without gynecologic complaints. Review of Systems The patient has gained 20 pounds over the last year. She denies respiratory, cardiac, or G.I. problems. Past Medical History Past Medical History: Cancer, Hypertension, Renal Disease, Sleep Apnea/CPAP/BIPAP Additional Past Medical History / Comment(s): GIST gastrointestinal cancer, liver abscess, thrombosis liver portal vein, uses C- Pap Machine., kidney disease stage 3., pt has port a cath. 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 She has lichen sclerosis of the vulva confirmed by biopsy in 2019. History of Any Multi-Drug Resistant Organisms: None Reported Past Surgical History: Bariatric Surgery, Cholecystectomy Additional Past Surgical History / Comment(s): bowel [id number], csection, sinus surgery, cataract surgery, d&C, breast biopsy, port placement. Gastric sleeve bariatric surgery 11/24/2020. Colonoscopy 2022(next after 3yr) Past Anesthesia/Blood Transfusion Reactions: No Reported Reaction, Motion Sickness Additional Past Anesthesia/Blood Transfusion Reaction / Comment(s): usuallly gets a "patch" Past Psychological History: Anxiety, Depression Smoking Status: Former smoker Past Alcohol Use History: Rare (12 drinks per year.) Additional Past Alcohol Use History / Comment(s): Previously rarely used alcohol, but now not using any alcohol after bariatric surgery. Past Drug Use History: None Reported Additional History: She has been since 1984 and is disabled. - Past Family History Father Family Medical History: Hypertension Additional Family Medical History / Comment(s): of aneursym Mother Family Medical History: Coronary Artery Disease (CAD), Diabetes Mellitus Additional Family Medical History / Comment(s): Maternal grandmother had oral cancer. One cousin had lymphoma and another cousin had colon cancer. Medications and Allergies Home Medications Medication Instructions Recorded Confirmed Type ALPRAZolam [Xanax] 0.5 mg PO BID PRN 02/05/19 11/11/24 History Acetaminophen [Tylenol] 325 mg PO Q6H PRN 02/05/19 11/11/24 History Amitriptyline HCl 50 mg PO HS 02/05/19 11/11/24 History Furosemide [Lasix] 40 mg PO DAILY PRN 02/05/19 11/11/24 History Imatinib Mesylate [Gleevec] 400 mg PO HS 02/05/19 11/11/24 History Escitalopram [Lexapro] 20 mg PO DAILY 02/07/19 11/11/24 History Fexofenadine HCl [Veronica Allergy] 180 tab PO DAILY PRN 06/25/19 11/11/24 History Ibuprofen [Motrin] 800 mg PO DIRECTED PRN 06/25/19 11/11/24 History Multivit-Min/Iron/Folic/Lutein 1 each PO DAILY 08/18/20 11/11/24 History [Centrum Silver Women Tablet] [place] 1 tab PO DAILY 08/18/20 11/11/24 History Omeprazole [PriLOSEC] 40 mg PO DAILY 09/23/20 11/11/24 History Cyanocobalamin [Vitamin B-12 1 dispenser INJ WEEKLY 10/11/21 11/11/24 History Injection] Clobetasol Propionate [Temovate 1 applic TOPICAL BID PRN #30 gm 01/30/24 11/11/24 Rx 0.05% Oint] Verapamil HCl [Verapamil Sr] 120 mg PO DAILY 02/17/25 02/17/25 History Allergies Allergy/AdvReac Type Severity Reaction Status Date / Time ampicillin Allergy Throat/Tongue Verified 02/17/25 11:53 Swelling, Hives cephalexin monohydrate Allergy Throat/Tongue Verified 02/17/25 11:53 [From Keflex] Swelling, Hives erythromycin base Allergy Throat/Tongue Verified 02/17/25 11:53 [Erythromycin Base] Swelling, Hives Penicillins Allergy Throat/Tongue Verified 02/17/25 11:53 Swelling, Hives tetracycline [Tetracycline] Allergy Throat/Tongue Verified 02/17/25 11:53 Swelling, Hives Exam Vital Signs Temp Pulse Resp BP Pulse Ox 02/17/25 11:56 98.9 F 110 H 16 144/79 95 Intake and Output 06/02/17/25 02/17/25 22:59 06:59 14:59 Other: Weight 127.913 kg Height 5 feet 2 inches, weight 282 pounds, BMI 51.6. This is a well-developed well-nourished obese White female who is alert and oriented times 3 in no acute distress. HEENT: Within normal limits. NECK: Supple without mass or thyromegaly. CHEST AND LUNGS: Clear to auscultation. She has a palpable port on the right peristernal area. It is nontender HEART: Regular rate and rhythm. BREASTS: Are without mass or discharge. AXILLARY EXAM: Negative for adenopathy. BACK: Negative for CVA tenderness. ABDOMEN: Soft, obese, nontender, without palpable masses. PELVIC EXAM: External genitalia reveals mild pallor in an hourglass distribution around the vulva, perineum, and perianal areas. This is consistent with lichen sclerosis of the vulva. There is no significant excoriation or ulceration noted.. Cervix and vagina appear normal with mild atrophy. There is no unusual discharge. There is no evidence of prolapse. The uterus is midposition, nongravid size and nontender. There are no palpable adnexal masses or tenderness. RECTAL EXAM: Rectovaginal exam is negative for mass or tenderness and is negative for occult blood. EXTREMITIES: Nontender. IMPRESSION: 1. 59-year-old menopausal female with stable lichen sclerosus of the vulva, symptomatically improved with Temovate ointment. 2. History of osteopenia. PLAN: 1. Pap smear was deferred since she had a negative Pap smear cotest on 02/08/2022. 2. Self breast awareness was discussed with the patient. We have also discussed symptoms associated with inflammatory breast cancer. 3. Screening mammogram will be done today. 4. Osteoporosis prevention was discussed. I have stressed the importance of adequate calcium, vitamin D and regular exercise. Recommended amounts of calcium and vitamin D were also discussed. We will plan on repeating the bone density test in 1 year. 5. Continue using Temovate ointment twice daily as needed for vulvar irritation. She will call if she is having worsening symptoms or problems. 6. She was advised to return in one year for her annual well woman exam and as needed.
--- NOTE | 2025-02-17 12:59 | MM ---
Reason for Exam: Screening (asymptomatic). Last screening mammogram was performed 12 month(s) ago. Patient History: Menarche at age 9. First Full-Term at age 21. Postmenopausal. Patient has history of breast feeding. Other cancer, age 48. Patient used Hormonal Contraceptives for 1 year. 02/12/2007, Excisional Biopsy on the Right side. 08/24/1999, Benign Excisional Biopsy on the right side. Risk Values: Veronica 5 year model risk: 2.1%. NCI Lifetime model risk: 10.6%. Prior Study Comparison: 10/11/2021 Bilateral Screening Mammogram, [facility]. 12/05/2022 Bilateral MG 3D screening mammo w/cad, [facility]. 01/30/2024 Bilateral MG 3D screening mammo w/cad, [facility]. Tissue Density: There are scattered areas of fibroglandular density. Findings: Analyzed By CAD. Right breast: There is no suspicious group of microcalcifications or new suspicious mass. Left breast: There is no suspicious group of microcalcifications or new suspicious mass. Overall Assessment: Negative, BI-RAD 1 Management: Screening Mammogram of both breasts in [address] [facility] will attempt to contact patient to return for supplemental views and ultrasound if indicated. Patient should continue monthly self-breast exams. A clinical breast exam by your physician is recommended on an annual basis. This exam should not preclude additional follow-up of suspicious palpable abnormalities. Note on Veronica scores and lifetime risk: 1. A Veronica score greater than 3% is considered moderate risk. If this is the case, consider specialist referral to assess eligibility for a risk reducing agent. 2. If overall lifetime risk for the development of breast cancer is 20% or higher, the patient may qualify for future screening with alternating mammogram and breast MRI. [facility], , 02/17/2025 12:56 PM. Electronically signed and approved by: Lane Lloyd DO
== END ==
LOC: WWCWWP 11:33
PROVIDERS: ATTEND Obstetrics & Gynecology
DX: Z01.419 Encounter for gynecological examination (general) (routine) without abnormal findings (principal); Z12.31 Encounter for screening mammogram for malignant neoplasm of breast; L90.0 Lichen sclerosus et atrophicus; M85.80 Other specified disorders of bone density and structure, unspecified site; Z78.0 Asymptomatic menopausal state; Z88.0 Allergy status to penicillin; Z88.1 Allergy status to other antibiotic agents; Z87.891 Personal history of nicotine dependence
CPT/HCPCS: 77063; 77067

== ENCOUNTER → 2025-03-19 | Outpatient (CLI) | payer MEDICARE, BC ==
[2025-03-19 10:55] VITALS: BP 121/79; PULSE 80; RESP 18; TEMP 98.7
[2025-03-19 11:16] LABS: Bilirubin,Urine Negative (Negative); Blood,Urine Negative (Negative); Color,Urine Light Yellow; Glucose,Urine (UA) Negative (Negative); Ketones,Urine Negative (Negative); Leukocyte Esterase,Urine Negative (Negative); Nitrite,Urine Negative (Negative); PH, Urine 5.5 (5.0-8.0); Protein,Urine Negative (Negative); Specific Gravity,Urine 1.022 (1.001-1.035); Urobilinogen,Urine <2.0 mg/dL (<2.0)
[2025-03-19 11:27] LABS: ALT 19 U/L (4-34); AST 22 U/L (14-36); African American GFR (CKD) 73 (>60 ml/min/1.73 sqM); Albumin 3.7 g/dL (3.5-5.0); Alkaline Phosphatase 83 U/L (38-126); Anion Gap 7 mmol/L; Blood Urea Nitrogen 22 mg/dL (7-17); Calcium 10.0 mg/dL (8.4-10.2); Carbon Dioxide 27 mmol/L (22-30); Chloride 104 mmol/L (98-107); Glucose 93 mg/dL (74-99); Magnesium 2.0 mg/dL (1.6-2.3); Non-African American GFR(CKD) 63 (>60 ml/min/1.73 sqM); Potassium 4.2 mmol/L (3.5-5.1); Sodium 138 mmol/L (137-145); Total Protein 6.3 g/dL (6.3-8.2); Uric Acid 5.0 mg/dL (3.7-7.4)
[2025-03-19 11:28] LABS: Basophils # (A) 0.03 10*3/uL (0.00-0.10); Basophils % (A) 0.4 %; Eosinophils # (A) 0.05 10*3/uL (0.04-0.35); Eosinophils % (A) 0.7 %; HCT 35.8 % (37.2-46.3); HGB 12.1 g/dL (12.0-15.0); Lymphocytes # (A) 1.44 10*3/uL (0.90-5.00); Lymphocytes % (A) 19.1 %; MCH 33.6 pg (27.0-32.0); MCHC 33.8 g/dL (32.0-37.0); MCV 99.4 fL (80.0-97.0); Monocytes # (A) 0.68 10*3/uL (0.20-1.00); Monocytes % (A) 9.0 %; Neutrophils # (A) 5.29 10*3/uL (1.80-7.70); Neutrophils % (A) 70.4 %; Platelet Count 212 10*3/uL (140-440); RBC 3.60 10*6/uL (4.10-5.20); RDW 13.3 % (11.5-14.5); WBC 7.52 10*3/uL (4.50-10.00)
[2025-03-19 16:31] LABS: Cholesterol 164.00 mg/dL (0.00-200.00); HDL Cholesterol 59.90 mg/dL (40.00-60.00); Iron 149 UG/DL (50-170); LDL Cholesterol,Calculated 86.8 mg/dL (0.0-131.0); Total Iron Binding Capacity 342 UG/DL (228-460); Triglycerides 86.50 mg/dL (0.00-149.00); VLDL Calculation 17.30 mg/dL (5.00-40.00); Vitamin B12 514.0 pg/mL (200.0-944.0)
== END ==
LOC: PROCWHC3 10:10
PROVIDERS: ATTEND Nurse Practitioner Family
DX: I12.9 Hypertensive chronic kidney disease with stage 1 through stage 4 chronic kidney disease, or unspecified chronic kidney disease (principal); N18.2 Chronic kidney disease, stage 2 (mild); D63.1 Anemia in chronic kidney disease; K91.2 Postsurgical malabsorption, not elsewhere classified; N39.0 Urinary tract infection, site not specified; R80.9 Proteinuria, unspecified; E55.9 Vitamin D deficiency, unspecified; N25.81 Secondary hyperparathyroidism of renal origin; M10.9 Gout, unspecified
CPT/HCPCS: 80061; 80053; 84443; 82607; 82746; 83540; 83550; 83735; 84100; 84550; 85025; 81003; 82306; 83970; 82043; 82570; 36591; J1642